=== PATIENT | female | born 1945 | race Caucasian/White ===

== ENCOUNTER 2016-10-25 23:53 | Emergency (ER) | payer MEDICARE, OTHER ==
[2016-10-25] MEDS ORDERED: Robitussin AC Syrup Unit Dose Cup PO PRN (23:54)
[2016-10-25] MEDS ORDERED: Xopenex 1.25 MG/0.5 ML UD NEBULE IH ONE (23:54)
[2016-10-25] MEDS ORDERED: Rocephin 1000 MG INJ IM ONE (23:54)
--- NOTE | 2016-10-26 | ERPHSYRPT ---
- History of Present Illness Time Seen by Provider: 10/25/16 23:53 Source: patient Exam Limitations: no limitations Physician History: FOR THE PAST 4 DAYS PT HAS HAD COUGH PRODUCTIVE OF YELLOW PHLEGM, CHILLS AND A SORE THROAT; FOR THE PAST 3 DAYS A SUBJECTIVE FEVER; FOR THE PAST 2 DAYS NASAL DRAINAGE, LEFT EARACHE AND WHEEZING. Allergies/Adverse Reactions: propoxyphene HCl [From Darvon] Allergy (Verified 07/28/16 11:10) nausea Home Medications: Certolizumab Pegol [Cimzia] 1 unit IJ UD 01/27/16 [History] Loratadine 10 mg [Claritin 10 mg] 10 mg PO DAILY 01/27/16 [History] Methotrexate Sodium [Methotrexate] 2.5 mg PO UD 01/27/16 [History] Apixaban [Eliquis] 5 mg PO BID 07/28/16 [History] Bacillus Coagulans [Probiotic] 1 each PO DAILY 07/28/16 [History] Gabapentin [Neurontin] 100 mg PO HS 07/28/16 [History] Levothyroxine Sodium 50 Mcg [Synthroid 50 Mcg] 50 mcg PO DAILY 07/28/16 [ History] Multivitamin [Multivitamins] 1 each PO DAILY 07/28/16 [History] Hx Tetanus, Diphtheria Vaccination/Date Given: Yes Hx Influenza Vaccination/Date Given: No Hx Pneumococcal Vaccination/Date Given: No - Review of Systems Constitutional: Fever, Chills Ears, Nose, & Throat: Ear Pain (LEFT), Nose Discharge, Throat Pain Respiratory: Cough, Wheezing Cardiac: No Chest Pain Abdominal/Gastrointestinal: No Abdominal Pain, No Vomiting Neurological: No Headache Endocrine: No Excessive Sweating All Other Systems: Reviewed and Negative - Past Medical History Pertinent Past Medical History: Yes Neurological History: No Pertinent History ENT History: No Pertinent History Cardiac History: Arrhythmia Respiratory History: No Pertinent History Endocrine Medical History: Hypothyroidism Musculoskeletal History: Fibromyalgia, Rheumatoid Arthritis GI Medical History: GERD History: No Pertinent History Psycho-Social History: No Pertinent History Female Reproductive Disorders: No Pertinent History - Past Surgical History Past Surgical History: Yes Neuro Surgical History: No Pertinent History Cardiac: No Pertinent History Respiratory: No Pertinent History Gastrointestinal: No Pertinent History Genitourinary: No Pertinent History Musculoskeletal: Orthopedic Surgery Female Surgical History: Tubal Ligation Other Surgical History: RIGHT ANKLE SURGERY,BILATERAL HAND SURGERY, lymph node biopsy - Social History Smoking Status: Never smoker Exposure to second hand smoke: No Drug Use: none Patient Lives Alone: No - Female History Hx Now: No - Physical Exam General Appearance: alert Eye Exam: PERRL/EOMI Ears, Nose, Throat Exam: TMs normal, moist mucous membranes, pharyngeal erythema Neck Exam: normal inspection Respiratory Exam: wheezing (MINIMAL EXPIRATORY MUSICAL WHEEZING OVER POSTERIOR BASES.) Cardiovascular Exam: normal peripheral pulses Gastrointestinal/Abdomen Exam: soft, normal bowel sounds Back Exam: normal range of motion Extremity Exam: normal inspection, No pedal edema Neurologic Exam: alert, cooperative Skin Exam: warm, dry - Course Nursing assessment & vital signs reviewed: Yes - Departure Time of Disposition: 00:03 Departure Disposition: Home Clinical Impression: BRONCHITIS, PHARYNGITIS Condition: Fair Critical Care Time: No Instructions: Bronchitis Additional Instructions: FOLLOW UP WITH PRIVATE DOCTOR TOMORROW. Prescriptions: Guaifenesin/Codeine Phosphate [Robitussin AC Syrup] 5 ml PO Q4H PRN PRN #120 ml PRN Reason: Cough Azithromycin 250 mg [Zithromax 250 MG TABLET] 250 mg PO ZPACK #6 tablet
[2016-10-26] MEDS ORDERED: Sodium Chloride 3 ML UD NEBULES IH ONE (00:02)
[2016-10-26] MEDS ORDERED: Rocephin 1000 MG INJ ONE (00:02)
[2016-10-26] MEDS ORDERED: Xopenex 1.25 MG/0.5 ML UD NEBULE IH ONE (00:02)
[2016-10-26] MEDS ORDERED: Robitussin AC Syrup Unit Dose Cup ONE (00:02)
[2016-10-26] MEDS ORDERED: XYLOCAINE 1% HCL 20 ML MDV ONE (00:03)
[2016-10-26] MEDS ORDERED: Zithromax 250 MG TABLET PO ONE (00:04)
[2016-10-26] MEDS ORDERED: Zithromax 250 MG TABLET ONE (00:13)
[2016-10-26 01:09] VITALS: BP 160/86; PULSE 84; O2SAT 98
== END 2016-10-26 01:11 | disposition home or self-care (01) ==
LOC: ED 23:53
DX: J40 Bronchitis, not specified as acute or chronic (principal); J02.9 Acute pharyngitis, unspecified; Z79.01 Long term (current) use of anticoagulants; Z79.899 Other long term (current) drug therapy; R06.2 Wheezing
CPT/HCPCS: 94640; 96372; 99283; 99284; J0696

== ENCOUNTER 2017-01-31 13:22 | Emergency (ER) | payer MEDICARE, OTHER ==
[2017-01-31] MEDS ORDERED: Sodium Chloride 0.9% 1000 ML 1,000 ML ONE (13:39)
[2017-01-31] MEDS ORDERED: Sodium Chloride 0.9% 1000 ML 1,000 ML IV SCH (13:45)
[2017-01-31 13:58] LABS: Mean Cell Volume 99.7 fl (78-100); Mean Corpuscular Hemoglobin 33.2 pg (26-32); Platelet Count 107 K/mm3 (150-450); Red Blood Count 3.76 M/mm3 (4.1-5.4); White Blood Count 12.5 K/mm3 (4.0-10.5)
[2017-01-31 14:22] LABS: ALBUMIN 3.4 g/dL (3.4-5.0); ANION GAP 15.9 MEQ/L (5-15); BILIRUBIN,TOTAL 0.7 mg/dL (0.2-1.0); Carbon Dioxide 22.7 mEq/L (21-32); Potassium 3.7 mEq/L (3.5-5.1); Total Protein 7.5 gm/dL (6.4-8.2)
[2017-01-31 14:24] LABS: PROTIME 21.9 SECONDS (9.95-12.35)
--- NOTE | 2017-01-31 14:32 | XRAY ---
Indication: Stroke symptoms. Multiple contiguous axial images obtained through the head without contrast. Comparison: July 28, 2016. Again age-appropriate global atrophy and minimal periventricular degenerative micro-ischemia. No acute intracranial hemorrhage, abnormal extra-axial fluid collection, or mass effect. Fourth ventricle is midline without hydrocephalus. Bony calvarium intact. Minimal left sphenoid sinus mucosal thickening. Remaining visualized paranasal sinuses and mastoid air cells are pneumatized and clear. Impression: Again nonacute senile brain. CTDI 69.66
--- NOTE | 2017-01-31 14:34 | XRAY ---
Indication: Cough. Comparison: July 28, 2016. Portable chest remains clear. Heart is not enlarged. Bony thorax intact again with mild osteopenia and degenerative changes. Impression: Stable nonacute chest.
[2017-01-31 14:41] VITALS: PULSE 75; O2SAT 99
--- NOTE | 2017-01-31 15:05 | ERPHSYRPT ---
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 PATIENT DENIES HEADACHE, FACIAL NUMBNESS, FOCAL EXTREMITY NUMBNESS, TINGLING OR WEAKNESS IN EXTREMITIES. STATES HER GAIT IS UNSTEADY DUE TO RHEUMATOID ARTHRITIS , AND HAS SLURRED SPEECH WHEN SHE IS EXTREMITY FATIQUED. Timing/Duration: today Severity: mild Character of Deficits: impaired speech Baseline/Normal Cognition: alert oriented x 3 Current Cognition: alert oriented x 3 Baseline Gait: walks w/o assistance Allergies/Adverse Reactions: propoxyphene HCl [From Darvon] Allergy (Verified 01/31/17 13:29) nausea Home Medications: Certolizumab Pegol [Cimzia] 1 unit IJ UD 01/27/16 [History] Loratadine 10 mg [Claritin 10 mg] 10 mg PO DAILY 01/27/16 [History] Methotrexate Sodium [Methotrexate] 2.5 mg PO UD 01/27/16 [History] Apixaban [Eliquis] 5 mg PO BID 07/28/16 [History] Bacillus Coagulans [Probiotic] 1 each PO DAILY 07/28/16 [History] Gabapentin [Neurontin] 100 mg PO HS 07/28/16 [History] Levothyroxine Sodium 50 Mcg [Synthroid 50 Mcg] 50 mcg PO DAILY 07/28/16 [ History] Multivitamin [Multivitamins] 1 each PO DAILY 07/28/16 [History] Hx Tetanus, Diphtheria Vaccination/Date Given: Yes Hx Influenza Vaccination/Date Given: No Hx Pneumococcal Vaccination/Date Given: No Immunizations Up to Date: Yes - Review of Systems Constitutional: No Fever, No Chills Eyes: No Symptoms Ears, Nose, & Throat: No Symptoms Respiratory: No Symptoms, No Cough, No Dyspnea Cardiac: No Symptoms, No Chest Pain, No Edema, No Syncope Abdominal/Gastrointestinal: No Symptoms, No Abdominal Pain, No Nausea, No Vomiting, No Diarrhea Genitourinary Symptoms: No Symptoms, No Dysuria Musculoskeletal: No Symptoms, No Back Pain, No Neck Pain Skin: No Symptoms, No Rash Neurological: Speech Changes, No Dizziness, No Focal Weakness, No Sensory Changes Psychological: No Symptoms Endocrine: No Symptoms Hematologic/Lymphatic: No Symptoms Immunological/Allergic: No Symptoms All Other Systems: Reviewed and Negative - Past Medical History Pertinent Past Medical History: Yes Neurological History: No Pertinent History ENT History: No Pertinent History Cardiac History: Arrhythmia Respiratory History: No Pertinent History Endocrine Medical History: Hypothyroidism Musculoskeletal History: Fibromyalgia, Rheumatoid Arthritis GI Medical History: GERD History: No Pertinent History Psycho-Social History: No Pertinent History Female Reproductive Disorders: No Pertinent History - Past Surgical History Past Surgical History: Yes Neuro Surgical History: No Pertinent History Cardiac: No Pertinent History Respiratory: No Pertinent History Gastrointestinal: No Pertinent History Genitourinary: No Pertinent History Musculoskeletal: Orthopedic Surgery Female Surgical History: Tubal Ligation Other Surgical History: RIGHT ANKLE SURGERY,BILATERAL HAND SURGERY, lymph node biopsy - Social History Smoking Status: Never smoker Exposure to second hand smoke: No Drug Use: none Patient Lives Alone: No - Female History Hx Now: No - Nursing Vital Signs Nursing Vital Signs: Initial Vital Signs Temperature 97.5 F Temperature Source Oral Pulse Rate 75 Respiratory Rate 20 Blood Pressure [] 139/75 Pain Intensity 0 - [place] Coma Scale Best Eye Response ([place]): (4) open spontaneously Best Verbal Response ([place]): (5) oriented Best Motor Response ([place]): (6) obeys commands Hao Total: 15 - Physical Exam General Appearance: no apparent distress, alert Eye Exam: bilateral eye: PERRL, EOMI Ears, Nose, Throat Exam: normal ENT inspection, moist mucous membranes Neck Exam: normal inspection, non-tender, supple Respiratory: normal breath sounds, lungs clear, airway intact, No respiratory distress Cardiovascular: regular rate/rhythm, No edema Gastrointestinal: soft, normal bowel sounds, No tenderness, No distention Back Exam: normal inspection Extremity Exam: normal inspection, No pedal edema Peripheral Pulses: carotid (R): 2+, carotid (L): 2+, femoral (R): 2+, femoral (L ): 2+, dorsalis-pedis (R): 2+, dorsalis-pedis (L): 2+ Mental Status: alert, 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 Exam: normal hearing (THERE IS NO FACIAL DROOP, HYPOESTHESIA, OR EXTEMITY WEAKNESS), normal speech, tongue midline Coordination/Gait: normal finger to nose, normal gait Motor/Sensory: no motor deficit, positive Babinski's sign DTR: bicep (R): 2+, bicep (L): 2+, tricep (R): 2+, tricep (L): 2+, knee (R): 2+ , knee (L): 2+, ankle (R): 2+, ankle (L): 2+ Skin Exam: normal color, warm, dry, No rash SpO2 Interpretation: normal SpO2: 99 Oxygen Delivery: Room Air - Course EKG Interpreted by Me: RATE, Sinus Rhythm, NORMAL AXIS - Radiology Exams Chest X-ray Interpretation: Negative - CT Exams Head CT Interpretation: Discussed w/radiologist, No/Intracranial Hemorrhag Ordered Tests: Active Orders 24 hr Category Date Time Status EKG-ER Only STAT Care 01/31/17 13:35 Active IV Insertion STAT Care 01/31/17 13:35 Active Oxygen-ED Only NASAL CANNULA 2 lpm Care 01/31/17 13:35 Active CHEST 1 VIEW (PORTABLE) Stat Exams 01/31/17 13:36 Completed HEAD WITHOUT CONTRAST [CT] Stat Exams 01/31/17 13:36 Completed CBC W DIFF Stat Lab 01/31/17 13:45 Completed CMP Stat Lab 01/31/17 13:45 Completed Manual Differential NC Stat Lab 01/31/17 13:45 Completed PROTIME WITH INR Stat Lab 01/31/17 13:45 Completed TROPONIN Q3H Lab 01/31/17 14:00 Completed TROPONIN Q3H Lab 01/31/17 16:45 Ordered TROPONIN Q3H Lab 01/31/17 19:45 Ordered TROPONIN Q3H Lab 01/31/17 22:45 Ordered TROPONIN Q3H Lab 02/01/17 01:45 Ordered UA W/ MICROSCOPIC Stat Lab 01/31/17 15:18 Completed Medication Summary Generic Name Dose Route Start Last Admin Trade Name Freq PRN Reason Stop Dose Admin Sodium Chloride 1,000 mls @ 50 mls/hr 01/31/17 13:45 01/31/17 13:41 Sodium Chloride 0.9% 1000 Ml IV 03/02/17 13:44 50 mls/hr .Q20H DARRELL Administration Lab/Rad Data: Laboratory Result Diagrams 01/31/17 13:45 01/31/17 13:45 Laboratory Results 01/31/17 01/31/17 01/31/17 Range/Units 15:18 14:00 13:45 WBC (4.0-10.5) K/mm3 RBC (4.1-5.4) M/mm3 Hgb (12.0-16.0) gm/dl Hct (35-47) % MCV (78-100) fl MCH (26-32) pg MCHC (32-36) g/dl RDW (11.5-14.0) % Plt Count (150-450) K/mm3 MPV (6-9.5) fl Segmented Neutrophils (36.0-66.0) % Band Neutrophils (0.0-2.0) % Lymphocytes (Manual) (24-44) % Monocytes (Manual) (0.0-12.0) % Differential Comment Atypical Lymphocytes % Toxic Granulation Platelet Estimate (NORMAL) Anisocytosis INR 2.00 (0.8-3.0) Sodium (136-145) mEq/L Potassium (3.5-5.1) mEq/L Chloride (98-107) mEq/L Carbon Dioxide (21-32) mEq/L Anion Gap (5-15) MEQ/L BUN (9-20) mg/dL Creatinine (0.55-1.30) mg/dl Estimated GFR ML/MIN Glucose (70-110) MG/DL Calcium (8.5-10.1) mg/dL Total Bilirubin (0.2-1.0) mg/dL AST (15-37) U/L ALT (12-78) U/L Alkaline Phosphatase (46-116) U/L Troponin I < 0.017 (0.000-0.056) ng/ml Serum Total Protein (6.4-8.2) gm/dL Albumin (3.4-5.0) g/dL Ur Collection Type VOID Urine Color YELLOW (YELLOW) Urine Appearance CLEAR (CLEAR) Urine pH 7.0 (5-6) Ur Specific [place] 1.015 (1.005-1.025) Urine Protein NEGATIVE (Negative) Urine Glucose (UA) NEGATIVE (NEGATIVE) mg/dL Urine Ketones NEGATIVE (NEGATIVE) Urine Nitrite NEGATIVE (NEGATIVE) Urine Bilirubin NEGATIVE (NEGATIVE) Urine Urobilinogen 1 (0-1) mg/dL Urine WBC (Auto) TRACE (NEGATIVE) Urine RBC (Auto) TRACE-INTACT (0-5) Thad/ul Specimen Received [id number] 01/31/17 01/31/17 Range/Units 13:45 13:45 WBC 12.5 H (4.0-10.5) K/mm3 RBC 3.76 L (4.1-5.4) M/mm3 Hgb 12.5 (12.0-16.0) gm/dl Hct 37.5 (35-47) % MCV 99.7 (78-100) fl MCH 33.2 H (26-32) pg MCHC 33.3 (32-36) g/dl RDW 14.0 (11.5-14.0) % Plt Count 107 L (150-450) K/mm3 MPV 11.0 H (6-9.5) fl Segmented Neutrophils 20 L (36.0-66.0) % Band Neutrophils 6 H (0.0-2.0) % Lymphocytes (Manual) 62 H (24-44) % Monocytes (Manual) 11 (0.0-12.0) % Differential Comment ABNORMAL Atypical Lymphocytes 1 % Toxic Granulation 2+ Platelet Estimate DECREASED (NORMAL) Anisocytosis 1+ INR (0.8-3.0) Sodium 132 L (136-145) mEq/L Potassium 3.7 (3.5-5.1) mEq/L Chloride 97 L (98-107) mEq/L Carbon Dioxide 22.7 (21-32) mEq/L Anion Gap 15.9 H (5-15) MEQ/L BUN 14 (9-20) mg/dL Creatinine 1.10 (0.55-1.30) mg/dl Estimated GFR 52 ML/MIN Glucose 100 (70-110) MG/DL Calcium 9.1 (8.5-10.1) mg/dL Total Bilirubin 0.7 (0.2-1.0) mg/dL AST 101 H (15-37) U/L ALT 104 H (12-78) U/L Alkaline Phosphatase 137 H (46-116) U/L Troponin I (0.000-0.056) ng/ml Serum Total Protein 7.5 (6.4-8.2) gm/dL Albumin 3.4 (3.4-5.0) g/dL Ur Collection Type Urine Color (YELLOW) Urine Appearance (CLEAR) Urine pH (5-6) Ur Specific [place] (1.005-1.025) Urine Protein (Negative) Urine Glucose (UA) (NEGATIVE) mg/dL Urine Ketones (NEGATIVE) Urine Nitrite (NEGATIVE) Urine Bilirubin (NEGATIVE) Urine Urobilinogen (0-1) mg/dL Urine WBC (Auto) (NEGATIVE) Urine RBC (Auto) (0-5) Thad/ul Specimen Received - Progress Counseled pt/family regarding: lab results, diagnosis, need for follow-up, rad results - Departure Time of Disposition: 15:35 Departure Disposition: Home Clinical Impression: WEAKNESS Condition: Stable Critical Care Time: No Referrals: GREGORIO CISNEROS MD [Primary Care Provider] - Additional Instructions: CONTINUE ALL CURRENT MEDICATIONS. FOLLOWUP WITH YOUR FAMILY PHYSICIAN IN 1 WEEK. RETURN TO EMERGENCY FOR ONSET OF SLURRED SPEECH, BLURRED VISION, FOCAL NUMBNESS, TINGLING OR WEAKNESS
[2017-01-31 15:19] LABS: Collection Type VOID
[2017-01-31 15:20] LABS: COMPLETE URINE MICROSCOPIC? YES
[2017-01-31 15:22] LABS: ANISOCYTOSIS 1+; ATYPICAL LYMPHS 1 %; BAND 6 % (0.0-2.0); Platelet Estimate DECREASED (NORMAL); Total Cells Counted 100; Toxic Granulation 2+
[2017-01-31 15:45] VITALS: BP 133/73
[2017-01-31 15:50] LABS: Epithelial Cells RARE /HPF (FEW)
== END 2017-01-31 15:43 | disposition home or self-care (01) ==
LOC: ED 13:22
DX: R53.1 Weakness (principal); R47.81 Slurred speech; Z79.899 Other long term (current) drug therapy; E03.9 Hypothyroidism, unspecified
CPT/HCPCS: 36000; 36415; 70450; 71010; 80053; 81000; 84484; 85025; 85610; 93005; 96360; 96361; 99285

== ENCOUNTER 2017-02-15 11:53 | Inpatient (IN) | payer MEDICARE, OTHER ==
[2017-02-15 12:34] LABS: Mean Cell Volume 98.3 fl (78-100); Mean Platelet Volume 10.4 fl (6-9.5); Platelet Count 172 K/mm3 (150-450); Red Blood Count 3.53 M/mm3 (4.1-5.4); Red Cell Distribution Width 14.9 % (11.5-14.0); White Blood Count 8.9 K/mm3 (4.0-10.5)
[2017-02-15 12:37] LABS: Mean Corpuscular Hemoglobin 32.8 pg (26-32)
[2017-02-15 13:00] LABS: ALBUMIN 2.5 g/dL (3.4-5.0); ALKALINE PHOSPHATASE 255 U/L (46-116); ANION GAP 10.9 MEQ/L (5-15); BLOOD UREA NITROGEN 18 mg/dL (9-20); CHLORIDE 100 mEq/L (98-107); Carbon Dioxide 24.6 mEq/L (21-32); Glucose 99 MG/DL (70-110); LIPASE 486 U/L (73-393); SGOT/AST 182 U/L (15-37); SGPT/ALT 202 U/L (12-78); SODIUM 132 mEq/L (136-145); Total Protein 7.4 gm/dL (6.4-8.2)
[2017-02-15 13:01] LABS: BAND 3 % (0.0-2.0); Eosinophil 2 % (0.00-3.0); Total Cells Counted 100
[2017-02-15 13:03] LABS: ANISOCYTOSIS 1+; Platelet Estimate NORMAL (NORMAL); Poikilocytosis 1+
[2017-02-15] MEDS ORDERED: Zofran 4 MG/2 ML VIAL IV PRN (13:46)
[2017-02-15] MEDS ORDERED: PROVENTIL 2.5 MG/3 ML NEB IH PRN (13:51)
[2017-02-15] MEDS ORDERED: SUBLIMAZE 100 MCG/2 ML IV PRN (13:53)
[2017-02-15] MEDS: Zosyn 3.375GM/100 Ml D5W 3.375 GM/100 ML IVPB IV SCH ×3 (14:34→23:51)
[2017-02-15] MEDS: Sodium Chloride 0.9% 1000 ML 1,000 ML IV SCH (14:34)
--- NOTE | 2017-02-15 14:55 | CONS ---
CONSULT DATE: 02/15/2017 This patient is seen for Dr. Yasemin Mcleod who is composition stone applicator for our group. She asked that I see the patient as I passed through doing procedures as Dr. Mcleod was tied up at [facility] at this time. HISTORY: The patient is a 71 year-old female who has had some weakness going on for three weeks, some mild abdominal discomfort, no severe pain. She did have some nausea at times and mainly complained of weakness. PAST MEDICAL HISTORY: Rheumatoid arthritis. History of atrial fibrillation, hypothyroidism. She had some nerve pain in her legs in the past, according to the patient. She has history of fever in the past apparently. She has rheumatoid arthritis and had been followed by Dr. Villalta in [place] regarding that. PAST SURGICAL HISTORY: She denied any abdominal surgery other than a tubal in the past. She did have some left foot and right ankle surgery in the past. MEDICATIONS: She has been on Claritin, Eliquis, gabapentin, levothyroxine, loratadine in the past that she has stopped at this time. She has also been on certolizumab pegol (Cimzia) for her arthritis. She has been on Eliquis for atrial fibrillation. Metoprolol she had been on to control her heart rate in the past. ALLERGIES: PROPOXYPHENE. REVIEW OF SYSTEMS: Twelve systems reviewed per admission assessment pertinent for as noted above. She had weakness. LAB DATA AND TESTS: She had CT of the head that showed age-related atrophy, chronic ischemic disease without any acute intracranial abnormality. She had ultrasound that showed hepatic steatosis. She had contracted gallbladder limited evaluation and question whether small polyp versus septation versus sludge at the time of the ultrasound. No obvious gross stones. She has had elevated liver function test. She did have a negative hepatitis panel. She had AST 118 and ALT 94, alkaline phosphatase 191 back on 02/06/2017. Today, her liver function tests are even higher 182 AST, ALT 202, alkaline phosphatase 255, lipase elevated at 46, amylase 101, bilirubin 0.8. White blood cell count 8.9, hemoglobin 11.6. She did have some elevated lymphocytes on differential. PLT count 172,000. PHYSICAL EXAMINATION: GENERAL: No acute distress. HEENT: Sclera nonicteric. She is wearing glasses. NECK: No JVD. CHEST: Equal excursion, nonlabored breathing. CVS: Irregular pulse. ABDOMEN: Soft, minimal abdominal tenderness. No rebound. No guarding. Minimal tenderness over gallbladder area currently on my exam. EXTREMITIES: No significant edema. NEURO: She seems to be moving extremities grossly symmetrically. IMPRESSION: Some vague weakness, vague abdominal complaints. Negative hepatitis panel but significantly elevated liver function tests unclear etiology. I feel she needs MRCP to rule out choledocholithiasis. If identified she definitely needs an ERCP evaluation. If negative then will repeat the liver function test tomorrow and let it to go on to normalize. Her HIDA scan shows cholecystitis. Will consider cholecystectomy at that time. Otherwise if MRCP reveals no obvious large stones, she has persistent elevated liver function tests might need consideration of ERCP prior to considering any gallbladder intervention if necessary. She and her daughter understand. Otherwise in the meantime need to hold the Eliquis as it is not safe to proceed on nonemergent surgical intervention at this moment given her blood thinner use. So will hold the Eliquis, check MRCP, order a HIDA scan at this time. Await MRCP and HIDA results. Hold the Eliquis in the meantime. Should eventually whether the HIDA is abnormal or liver function test remain abnormal and determine if she has sludge or small stone, need gallbladder intervention. Risks would include bleeding or infection, risk of trocar injury or hernia, small risk bowel, bladder or blood vessel injury, small risk of bile leak, bile duct injury, retained stone or sludge possibly requiring further procedure either open or ERCP, general risk of anesthesia, deep venous thrombosis, pulmonary embolism, pneumonia but not limited to, risk of no improvement of her symptoms or possible need for ERCP at a later date. At this time check MRCP, check HIDA scan. If MRCP and HIDA are normal then might need consideration of upper and lower endoscopy or even upper endoscopic ultrasound. I will await the study results of MRCP, HIDA scan, as well as repeat liver function test tomorrow while holding her Eliquis. The patient and daughter agree to the plan. The patient is seen for Dr. Yasemin Mcleod who is composition stone applicator for our group today. I will follow with you.
--- NOTE | 2017-02-15 18:13 | XRAY ---
MRI of the abdomen without IV contrast/MRCP from 02/15/2017. Comparison: Gallbladder ultrasound from 11/23/2014. Indication: Recent infection, postprandial bloating and "gassy", questionable cholecystitis or stones. Technique: Multiple axial and coronal imaging sequences were obtained, per MRCP protocol. Findings: The gallbladder is partially distended. No gallbladder wall thickening is seen. I see no foci of decreased signal within the bile filled gallbladder lumen to suggest stones. A linear septation is seen. The visualized intrahepatic bile ducts, common hepatic duct, and common bile duct appear of normal diameter and reveal no evidence of obstruction or decreased focal signal to suggest a retained bile duct stone. Images of the pancreatic duct appear unremarkable as well. Pancreas and adrenal glands appear unremarkable. I believe there is a small 1 cm in diameter cyst within the posterior aspect of the left lobe of the liver. No other significant abnormality of the visualized abdomen is seen. Impression: 1. The MRCP reveals a partially distended, bile filled gallbladder without evidence of stones within it or gallbladder wall thickening. 2. Both the visualized bile ducts and pancreatic duct appear unremarkable. No evidence of bile duct obstruction or choledocholithiasis is seen.
[2017-02-15] MEDS: Neurontin 100 MG PO SCH (21:26)
[2017-02-15] MEDS: Lopressor 25MG Tab PO SCH (21:26)
[2017-02-15] MEDS: TYLENOL 325 MG PO PRN (23:20)
[2017-02-16] MEDS: Sodium Chloride 0.9% 1000 ML 1,000 ML IV SCH ×2 (04:59→23:51)
[2017-02-16] MEDS: Zosyn 3.375GM/100 Ml D5W 3.375 GM/100 ML IVPB IV SCH ×4 (05:39→23:49)
[2017-02-16 06:08] LABS: ALBUMIN 2.3 g/dL (3.4-5.0); ALKALINE PHOSPHATASE 238 U/L (46-116); ANION GAP 12.3 MEQ/L (5-15); BLOOD UREA NITROGEN 16 mg/dL (9-20); CHLORIDE 103 mEq/L (98-107); Carbon Dioxide 26.1 mEq/L (21-32); Direct Bilirubin 0.46 MG/DL (0.0-0.2); Glucose 84 MG/DL (70-110); Potassium 4.3 mEq/L (3.5-5.1); SGOT/AST 141 U/L (15-37); SGPT/ALT 171 U/L (12-78); SODIUM 137 mEq/L (136-145); Total Protein 7.2 gm/dL (6.4-8.2)
[2017-02-16 06:46] LABS: Mean Cell Volume 99.4 fl (78-100); Mean Corpuscular Hemoglobin 32.3 pg (26-32); Mean Platelet Volume 11.1 fl (6-9.5); Platelet Count 172 K/mm3 (150-450); Red Blood Count 3.56 M/mm3 (4.1-5.4); Red Cell Distribution Width 14.9 % (11.5-14.0); White Blood Count 8.2 K/mm3 (4.0-10.5)
[2017-02-16] MEDS ORDERED: DIPRIVAN 200 MG/20 ML IV ONE (08:00)
[2017-02-16] MEDS ORDERED: ROBINUL IV ONE (08:00)
[2017-02-16] MEDS ORDERED: Zemuron 100 MG/10 ML IJ ONE (08:00)
--- NOTE | 2017-02-16 09:01 | PCM.NOTE ---
Date and Time: 02/16/17857 Subjective Assessment: doing about the same, has some vague discomfort in right upper abdomen and nausea, ran fever last night Objective Exam General Appearance: no apparent distress, alert, other (weak) Neurologic Exam: alert Skin Exam: normal color, warm, dry Respiratory Exam: normal breath sounds, lungs clear, No respiratory distress Cardiovascular Exam: regular rate/rhythm, normal heart sounds Gastrointestinal/Abdomen Exam: tenderness (RUQ), No guarding, No rebound Extremity Exam: normal inspection, normal range of motion OBJECTIVE DATA Vital Signs: Vital Signs - 24 hr Temp Pulse Resp BP Pulse Ox 02/16/17 08:00 98.3 F 97 H 19 107/57 100 02/16/17 05:00 97.8 F 99 H 20 102/59 97 02/16/17 01:54 98.4 F 02/15/17 23:58 101.2 F 107 H 26 H 117/58 93 L 02/15/17 23:10 102 H 24 98 02/15/17 20:05 97.6 F 107 H 24 126/58 93 L 02/15/17 19:46 97.6 F 107 H 24 126/58 93 L 02/15/17 15:23 98.3 F 93 H 22 99/55 93 L 02/15/17 14:20 88 18 93 L 02/15/17 12:51 97.6 F 99 H 20 116/59 92 L 02/15/17 12:35 97.6 F 99 H 20 116/59 92 L Oxygen-Last 24 hours O2 Percentage 3 Liters = 32% O2 Percentage 3 Liters = 32% O2 Percentage 3 Liters = 32% O2 Percentage 3 Liters = 32% Pain Assessment - Last Documented Pain Intensity 4 Pain Scale Used 0-10 Pain Scale Intake and Output: Intake & Output 02/13/17 02/14/17 02/15/17 02/16/17 11:59 11:59 11:59 11:59 Intake Total 1544 Output Total 550 Balance 994 Weight 64.467 kg Lab Results: Lab Results-Last 24 Hours 02/15/17 02/15/17 02/16/17 Range/Units 12:20 12:20 04:55 WBC 8.9 8.2 (4.0-10.5) K/mm3 RBC 3.53 L 3.56 L (4.1-5.4) M/mm3 Hgb 11.6 L 11.5 L (12.0-16.0) gm/dl Hct 34.7 L 35.4 (35-47) % MCV 98.3 99.4 (78-100) fl MCH 32.8 H 32.3 H (26-32) pg MCHC 33.4 32.5 (32-36) g/dl RDW 14.9 H 14.9 H (11.5-14.0) % Plt Count 172 172 (150-450) K/mm3 MPV 10.4 H 11.1 H (6-9.5) fl Segmented Neutrophils 34 L (36.0-66.0) % Band Neutrophils 3 H (0.0-2.0) % Lymphocytes (Manual) 53 H (24-44) % Monocytes (Manual) 8 (0.0-12.0) % Eosinophils (Manual) 2 (0.00-3.0) % Differential Comment ABNORMAL Platelet Estimate NORMAL (NORMAL) Poikilocytosis 1+ Anisocytosis 1+ Sodium 132 L (136-145) mEq/L Potassium 4.0 (3.5-5.1) mEq/L Chloride 100 (98-107) mEq/L Carbon Dioxide 24.6 (21-32) mEq/L Anion Gap 10.9 (5-15) MEQ/L BUN 18 (9-20) mg/dL Creatinine 0.93 (0.55-1.30) mg/dl Estimated GFR > 60 ML/MIN Glucose 99 (70-110) MG/DL Calcium 8.9 (8.5-10.1) mg/dL Total Bilirubin 0.80 (0.2-1.0) mg/dL Direct Bilirubin (0.0-0.2) MG/DL AST 182 H (15-37) U/L ALT 202 H (12-78) U/L Alkaline Phosphatase 255 H (46-116) U/L Serum Total Protein 7.4 (6.4-8.2) gm/dL Albumin 2.5 L (3.4-5.0) g/dL Amylase 101 (25-115) U/L Lipase 486 H (73-393) U/L 02/16/17 Range/Units 04:55 WBC (4.0-10.5) K/mm3 RBC (4.1-5.4) M/mm3 Hgb (12.0-16.0) gm/dl Hct (35-47) % MCV (78-100) fl MCH (26-32) pg MCHC (32-36) g/dl RDW (11.5-14.0) % Plt Count (150-450) K/mm3 MPV (6-9.5) fl Segmented Neutrophils (36.0-66.0) % Band Neutrophils (0.0-2.0) % Lymphocytes (Manual) (24-44) % Monocytes (Manual) (0.0-12.0) % Eosinophils (Manual) (0.00-3.0) % Differential Comment Platelet Estimate (NORMAL) Poikilocytosis Anisocytosis Sodium 137 (136-145) mEq/L Potassium 4.3 (3.5-5.1) mEq/L Chloride 103 (98-107) mEq/L Carbon Dioxide 26.1 (21-32) mEq/L Anion Gap 12.3 (5-15) MEQ/L BUN 16 (9-20) mg/dL Creatinine 0.94 (0.55-1.30) mg/dl Estimated GFR > 60 ML/MIN Glucose 84 (70-110) MG/DL Calcium 8.2 L (8.5-10.1) mg/dL Total Bilirubin 0.90 (0.2-1.0) mg/dL Direct Bilirubin 0.46 H (0.0-0.2) MG/DL AST 141 H (15-37) U/L ALT 171 H (12-78) U/L Alkaline Phosphatase 238 H (46-116) U/L Serum Total Protein 7.2 (6.4-8.2) gm/dL Albumin 2.3 L (3.4-5.0) g/dL Amylase (25-115) U/L Lipase (73-393) U/L Radiology Exams: Radiology Procedures Category Date Time Status CHEST 2 VIEWS (PA AND LAT) Routine Exams 02/16/17 08:32 Taken HEPATOBILIARY W/CCK & EF [NUCMED] Routine Exams 02/16/17 08:00 Taken MRI ABD W/O CONTRAST [MRI] Routine Exams 02/15/17 15:00 Completed Assessment/Plan (1) Abdominal pain Current Visit: Yes Status: Acute Assessment & Plan: awaiting HIDA results, MRCP shows no CBD stone etc Code(s): R10.9 - UNSPECIFIED ABDOMINAL PAIN (2) Elevated LFTs Current Visit: Yes Status: Acute Assessment & Plan: stable Code(s): R94.5 - ABNORMAL RESULTS OF LIVER FUNCTION STUDIES (3) Abnormal gallbladder ultrasound Current Visit: Yes Status: Acute Code(s): R93.2 - ABNORMAL FINDINGS ON DX IMAGING OF LIVER AND BILIARY TRACT (4) Fever Current Visit: Yes Status: Acute Assessment & Plan: check u/a, urine culture and chest xray since gallbladder is not clear cut etiology, still suspect cholecystitis with symptomatology and abnormal gb u/s with thick wall, MRCP conflicts with normal wall thickness. await hida scan result Code(s): R50.9 - FEVER, UNSPECIFIED
--- NOTE | 2017-02-16 09:10 | XRAY ---
Indication: Fever and nausea. Possible cholecystitis. Negative MRCP. Comparison: None Patient received 5.7 mCi of technetium 99 Choletec. Immediate anterior planar imaging was performed for 60 minutes. Normal hepatic activity on the first image. Normal biliary and biliary to bowel activity within 10 minutes. Normal gallbladder activity within 30 minutes. Patient then received 1.3 g of IV CCK slowly. Ejection fraction calculated 29%, low. Impression: HIDA scan portion of the exam is negative. Low ejection fraction of 29%. Rule out chronic cholecystitis.
--- NOTE | 2017-02-16 09:12 | XRAY ---
Indication: Fever. Recent infection. Comparison: January 31, 2017. PA/lateral chest hyperinflated today again without focal infiltrate, consolidation, or large effusion. Minimal fissure thickening. Heart is not enlarged. Vascularity normal. Bony thorax intact again with osteopenia and degenerative changes Impression: Nonacute hyperinflated chest with chronic features.
[2017-02-16] MEDS: Lopressor 25MG Tab PO SCH ×2 (10:34→20:47)
[2017-02-16] MEDS: SYNTHROID 50 MCG PO SCH (10:34)
[2017-02-16] MEDS ORDERED: MEFOXIN 2 GM PREMIX** 2 GM/50 ML ML IV SCH (16:00)
[2017-02-16 17:11] LABS: COMPLETE URINE MICROSCOPIC? NO; Collection Type VOID
[2017-02-16] MEDS: TYLENOL 325 MG PO PRN (20:40)
[2017-02-16] MEDS: Neurontin 100 MG PO SCH (20:47)
[2017-02-17] MEDS: Zosyn 3.375GM/100 Ml D5W 3.375 GM/100 ML IVPB IV SCH ×3 (05:32→17:13)
[2017-02-17 05:51] LABS: BASOPHIL % 1.7 % (0.0-0.4); Eosinophil % 1.2 % (0.00-5.0); Lymphocytes % 54.2 % (24.0-44.0); Mean Cell Volume 99.5 fl (78-100); Mean Corpuscular Hemoglobin 32.6 pg (26-32); Mean Platelet Volume 10.4 fl (6-9.5); Monocytes % 13.9 % (0.0-12.0); Platelet Count 163 K/mm3 (150-450); Red Blood Count 3.71 M/mm3 (4.1-5.4); Red Cell Distribution Width 14.9 % (11.5-14.0); White Blood Count 7.5 K/mm3 (4.0-10.5)
[2017-02-17] MEDS ORDERED: Pepcid 20 MG VIAL IV SCH (06:00)
[2017-02-17] MEDS ORDERED: Lactated Ringers 1,000 ML IV SCH (06:00)
[2017-02-17 06:14] LABS: ALBUMIN 2.1 g/dL (3.4-5.0); ALKALINE PHOSPHATASE 204 U/L (46-116); BLOOD UREA NITROGEN 11 mg/dL (9-20); CHLORIDE 105 mEq/L (98-107); Carbon Dioxide 24.2 mEq/L (21-32); Glucose 80 MG/DL (70-110); SGOT/AST 116 U/L (15-37); SGPT/ALT 143 U/L (12-78); SODIUM 137 mEq/L (136-145); Total Protein 6.9 gm/dL (6.4-8.2)
[2017-02-17 06:16] LABS: ALBUMIN 2.2 g/dL (3.4-5.0); BILIRUBIN,TOTAL 0.9 mg/dL (0.2-1.0); Direct Bilirubin 0.49 MG/DL (0.0-0.2); Total Protein 7.5 gm/dL (6.4-8.2)
[2017-02-17] MEDS: Lopressor 25MG Tab PO SCH ×2 (08:49→21:10)
[2017-02-17] MEDS: SYNTHROID 50 MCG PO SCH (08:49)
--- NOTE | 2017-02-17 11:38 | PCM.NOTE ---
Date and Time: 02/17/17 1132 Subjective Assessment: Patient reports that she is glad she will have surgery today as she has continued to have abdominal pain with eating but not as much when she does not eat. She reports her mouth feels dry. Her only questions is when the surgeons will be here. - Review of Systems Constitutional: No Symptoms Eyes: No Symptoms Ears, Nose, & Throat: No Symptoms Respiratory: No Symptoms Cardiac: No Symptoms Abdominal/Gastrointestinal: Abdominal Pain Genitourinary Symptoms: No Symptoms Musculoskeletal: No Symptoms Skin: No Symptoms Objective Exam General Appearance: no apparent distress, alert, other (family at bedside) Neurologic Exam: alert, cooperative, normal mood/affect Skin Exam: normal color, warm, dry, No rash Respiratory Exam: normal breath sounds, lungs clear, No crackles/rales, No rhonchi, No wheezing Cardiovascular Exam: regular rate/rhythm, normal heart sounds, No murmur, No friction rub, No gallop Gastrointestinal/Abdomen Exam: soft, normal bowel sounds, tenderness, No distention, No mass, No guarding Extremity Exam: other (no c/c/e) OBJECTIVE DATA Vital Signs: Vital Signs - 24 hr Temp Pulse Resp BP BP Pulse Ox 02/17/17 11:03 93 L 02/17/17 07:46 93 H 18 96 02/17/17 07:36 98.6 F 95 H 18 137/67 92 L 02/17/17 07:24 98.6 F 95 H 18 134/67 92 L 02/17/17 04:00 96.2 F 91 H 18 129/58 95 02/17/17 00:00 97.8 F 89 20 108/53 96 02/16/17 20:00 100.2 F 111 H 21 124/62 98 02/16/17 19:45 113 H 20 94 L 02/16/17 17:00 98.8 F 113 H 18 107/58 99 Oxygen-Last 24 hours O2 Percentage 3 Liters = 32% O2 Percentage 3 Liters = 32% O2 Percentage 3 Liters = 32% O2 Percentage 3 Liters = 32% Pain Assessment - Last Documented Pain Intensity 7 Pain Scale Used 0-10 Pain Scale Intake and Output: Intake & Output 02/15/17 02/16/17 02/17/17 02/18/17 06:59 06:59 06:59 06:59 Intake Total 1544 2407 0 Output Total 550 1355 600 Balance 994 1052 -600 Weight 64.467 kg 64.467 kg Lab Results: Lab Results-Last 24 Hours 02/16/17 02/17/17 02/17/17 Range/Units 16:57 05:41 05:41 WBC 7.5 (4.0-10.5) K/mm3 RBC 3.71 L (4.1-5.4) M/mm3 Hgb 12.1 (12.0-16.0) gm/dl Hct 36.9 (35-47) % MCV 99.5 (78-100) fl MCH 32.6 H (26-32) pg MCHC 32.8 (32-36) g/dl RDW 14.9 H (11.5-14.0) % Plt Count 163 (150-450) K/mm3 MPV 10.4 H (6-9.5) fl Gran % 29.0 L (36.0-66.0) % Lymphocytes % 54.2 H (24.0-44.0) % Monocytes % 13.9 H (0.0-12.0) % Eosinophils % 1.2 (0.00-5.0) % Basophils % 1.7 (0.0-0.4) % Basophils # 0.13 (0-0.4) Sodium 137 (136-145) mEq/L Potassium 5.0 (3.5-5.1) mEq/L Chloride 105 (98-107) mEq/L Carbon Dioxide 24.2 (21-32) mEq/L Anion Gap 13.0 (5-15) MEQ/L BUN 11 (9-20) mg/dL Creatinine 0.75 (0.55-1.30) mg/dl Estimated GFR > 60 ML/MIN Glucose 80 (70-110) MG/DL Calcium 8.3 L (8.5-10.1) mg/dL Total Bilirubin 0.80 (0.2-1.0) mg/dL Direct Bilirubin (0.0-0.2) MG/DL AST 116 H (15-37) U/L ALT 143 H (12-78) U/L Alkaline Phosphatase 204 H (46-116) U/L Serum Total Protein 6.9 (6.4-8.2) gm/dL Albumin 2.1 L (3.4-5.0) g/dL Lipase (73-393) U/L Ur Collection Type VOID Urine Color YELLOW (YELLOW) Urine Appearance CLEAR (CLEAR) Urine pH 7.0 (5-6) Ur Specific Jackson 1.020 (1.005-1.025) Urine Protein NEGATIVE (Negative) Urine Glucose (UA) NEGATIVE (NEGATIVE) mg/dL Urine Ketones NEGATIVE (NEGATIVE) Urine Nitrite NEGATIVE (NEGATIVE) Urine Bilirubin NEGATIVE (NEGATIVE) Urine Urobilinogen 2 (0-1) mg/dL Urine WBC (Auto) NEGATIVE (NEGATIVE) Urine RBC (Auto) NEGATIVE (0-5) Thad/ul Specimen Received 02/16/17 1715 02/17/17 Range/Units 05:41 WBC (4.0-10.5) K/mm3 RBC (4.1-5.4) M/mm3 Hgb (12.0-16.0) gm/dl Hct (35-47) % MCV (78-100) fl MCH (26-32) pg MCHC (32-36) g/dl RDW (11.5-14.0) % Plt Count (150-450) K/mm3 MPV (6-9.5) fl Gran % (36.0-66.0) % Lymphocytes % (24.0-44.0) % Monocytes % (0.0-12.0) % Eosinophils % (0.00-5.0) % Basophils % (0.0-0.4) % Basophils # (0-0.4) Sodium (136-145) mEq/L Potassium (3.5-5.1) mEq/L Chloride (98-107) mEq/L Carbon Dioxide (21-32) mEq/L Anion Gap (5-15) MEQ/L BUN (9-20) mg/dL Creatinine (0.55-1.30) mg/dl Estimated GFR ML/MIN Glucose (70-110) MG/DL Calcium (8.5-10.1) mg/dL Total Bilirubin 0.90 (0.2-1.0) mg/dL Direct Bilirubin 0.49 H (0.0-0.2) MG/DL AST 118 H (15-37) U/L ALT 149 H (12-78) U/L Alkaline Phosphatase 217 H (46-116) U/L Serum Total Protein 7.5 (6.4-8.2) gm/dL Albumin 2.2 L (3.4-5.0) g/dL Lipase 520 H (73-393) U/L Ur Collection Type Urine Color (YELLOW) Urine Appearance (CLEAR) Urine pH (5-6) Ur Specific Jackson (1.005-1.025) Urine Protein (Negative) Urine Glucose (UA) (NEGATIVE) mg/dL Urine Ketones (NEGATIVE) Urine Nitrite (NEGATIVE) Urine Bilirubin (NEGATIVE) Urine Urobilinogen (0-1) mg/dL Urine WBC (Auto) (NEGATIVE) Urine RBC (Auto) (0-5) Thad/ul Specimen Received Radiology Exams: Radiology Procedures Category Date Time Status CHEST 2 VIEWS (PA AND LAT) Routine Exams 02/16/17 08:32 Completed HEPATOBILIARY W/CCK & EF [NUCMED] Routine Exams 02/16/17 08:00 Completed MRI ABD W/O CONTRAST [MRI] Routine Exams 02/15/17 15:00 Completed Multi-Disciplinary Progress Notes: Multi-Disciplinary Progress Notes 02/16/17 13:16 Case Management Note by Stacey Baker CALL TO [facility] TO REPORT PT IS HERE. WILL CALL ON DISCHARGE. Initialized on 02/16/17 13:16 - END OF NOTE 02/16/17 12:00 (created 02/16/17 13:09) Case Management Note by Stacey Baker DISCHARGE PLAN REVIEWED, FAMILY AT BEDSIDE. PT REPORTS FEELING VERY POORLY X 2- 3 WEEKS. REPORTS THAT SHE HAS A HOME HEALTHCARE SERVICES AND THEY ARE AWARE OF ADMIT. USES A CANE AT HOME WHEN SHE IS UNSTEADY AND ALSO USES CHAIR IN SHOWER. DECLINED ADDNL NEEDS FOR DISCHARGE. REPORTS THAT FAMILY NEARBY AND CAN ASSIST WHEN NEEDED. WILL CONTINUE TO FOLLOW AND ASSESS FOR ALL DC NEEDS. Initialized on 02/16/17 13:09 - END OF NOTE Assessment/Plan (1) Acute cholecystitis Current Visit: Yes Status: Acute Assessment & Plan: Plan for surgery today with the surgeons. Continue IV antibiotics. Code(s): K81.0 - ACUTE CHOLECYSTITIS (2) History of atrial fibrillation Current Visit: Yes Status: Acute Assessment & Plan: Will check baseline EKG today before surgery. Code(s): Z86.79 - PERSONAL HISTORY OF OTHER DISEASES OF THE CIRCULATORY SYSTEM (3) Rheumatoid arthritis Current Visit: Yes Status: Acute Assessment & Plan: Stable at this time. Patient reports she is late for injections in her hips bilat. Code(s): M06.9 - RHEUMATOID ARTHRITIS, UNSPECIFIED
[2017-02-17] MEDS ORDERED: LOPRESSOR 5 MG/5 ML INJECTION IV ONE (12:05)
[2017-02-17] MEDS ORDERED: Sensorcaine 0.25% 10 ML ONE (12:54)
[2017-02-17] MEDS ORDERED: Lactated Ringers 1,000 ML IV ONE (12:54)
[2017-02-17] MEDS: TYLENOL 325 MG PO PRN (14:52)
[2017-02-17] MEDS: NORCO 5/325 MG PO PRN (15:03)
--- NOTE | 2017-02-17 16:38 | OP ---
THIS REPORT WAS AMENDED ON 02/19/17. SURGERY DATE: 02/17/17 SURGERY TIME: 1247 PREOPERATIVE DIAGNOSIS: 1. HISTORY OF SOME ELEVATED LIVER FUNCTION TESTS, WEIGHT LOSS, AND ENDOSCOPIC RETROGRADE CHOLANGIOPANCREATOGRAPHY. MRCP WAS NO GROSS LARGE CHOLEDOCHOLITHIASIS. 2. ABNORMAL HIDA SCAN WITH EJECTION FRACTION 29% CONSISTENT WITH DYSKINESIA, CHRONIC CHOLECYSTITIS. POSTOPERATIVE DIAGNOSIS: 1. HISTORY OF SOME ELEVATED LIVER FUNCTION TESTS, WEIGHT LOSS, AND ENDOSCOPIC RETROGRADE CHOLANGIOPANCREATOGRAPHY. MRCP WAS NO GROSS LARGE CHOLEDOCHOLITHIASIS. 2. ABNORMAL HIDA SCAN WITH EJECTION FRACTION 29% CONSISTENT WITH DYSKINESIA, CHRONIC CHOLECYSTITIS. PROCEDURE: 1. Laparoscopic cholecystectomy. SURGEON: Dr. Brandyn Blas. ANESTHESIA: General. ESTIMATED BLOOD LOSS: Minimal. INDICATIONS: As noted above. Risks and benefits explained in detail, but not limited to. Consent was obtained. DESCRIPTION OF PROCEDURE AND FINDINGS: The patient was taken to the OR. General anesthesia was induced. The abdomen was prepped and draped in the usual sterile fashion. After official time-out, no disagreement in planned procedure. Transverse incision made at the supraumbilical area. Fascia grasped and pulled up. Veress needle inserted. Tested with saline. Pneumoperitoneum accomplished insufflating from an opening pressure of 0-15. 11 mm bladeless port and camera inserted without difficulty followed by two 5 mm right upper quadrant ports and an initial 5 mm epigastric port, was later switched to 12 mm epigastric port. The gallbladder had some mild chronic inflammatory changes on its body and fundus, but more significant inflammatory changes around the cystic duct/infundibulum area junction with a clinically somewhat dilated common bile duct with a dilated short cystic duct stump. Slowly, carefully dissection from posterolateral to anterior fashion. The main cystic artery as well as the cystic duct/infundibular junction was slowly, carefully well skeletonized so the critical view was obtained both anteriorly and posteriorly. Once this was accomplished, the cystic artery was clipped X 3 and divided and this opened up the angle. Again, the critical view had been obtained anteriorly and posteriorly. At this point, it was felt given her elevated liver function tests, her AST and ALT had been in the 100s range and Alk. phos. had actually been 502, although the total bilirubin was in a normal range. Even though the MRCP did not show any large stones, there was a question of whether she had some sludge in her duct. Given this distended cystic duct, it was felt it would be a more secure closure with the endoscopic stapler rather than risk a clip popping off the cystic duct stump should any sludge become impacted. Again, the critical view had been obtained anteriorly and posteriorly. The endoscopic PAULIE stapler was then fired across the cystic duct stump away from the visible common duct next to the infundibulum. At this point, the gallbladder slowly, carefully dissected free from its dense, almost concrete attachments to the liver bed staying directly on the gallbladder wall. It was quite a vascular gallbladder requiring clipping individual oozing side branches off the cystic artery directly on the gallbladder wall. This took some time, but slowly, carefully accomplished. Again, dissecting directly on the gallbladder wall slowly, carefully freed with the aid of a hook cautery staying directly on the gallbladder wall elevating it well away from the gallbladder bed. Just prior to releasing the final attachments to the anterior edge of the liver, the liver bed reinspected. Clips noted to be in placed in the cystic duct/cystic artery stumps. There were no signs of any active bleeding or bile leakage. The clips noted to be in place on the cystic artery stumps and the staple line intact with no signs of any leakage on the cystic duct stump. At this point, the gallbladder was freed from its final attachments to the anterior edge of the liver. Again, to use the stapler, the 5 mm port had been switched to 12 mm port in the epigastrium. The gallbladder was easily pulled out this epigastric wound and passed off intact. Port was replaced. A copious amount of irrigation accomplished lateral to the liver and subhepatic space, irrigating until clear. Liver bed reinspected. Clips noted to be in place in the cystic artery stumps. The staple line was intact on the cystic duct stump. No signs of any active bleeding or bile leakage at this point, but given the inflammatory reaction and the somewhat dilated common bile duct and dilated cystic duct and question of elevated liver function tests and question of whether she had had any sludge floating around in there, because of the inflammation on the cystic duct, felt it was not safe to proceed with a cholangiogram at this setting, but it was felt that it was safer to go ahead and leave a LOGAN drain to reduce the risk of collection formation should the chance she develop any leaks in the stump given her elevated liver function tests and somewhat dilated common bile duct. Therefore, 7 flat LOGAN was placed in subhepatic space up through the lateral port incision. A copious amount of irrigation irrigating until clear. Fascial defects in epigastrium and umbilical area closed with puncture closure device and #1 Vicryl. Pneumoperitoneum decompressed. Wounds irrigated out. Skin incision closed with 4-0 Vicryl. Steri-strips and sterile dressing applied. 0.25% Marcaine local had been injected along each skin incision and fascial defect. The patient tolerated the procedure well. There were no immediate complications. Findings were discussed with the family out in the waiting area including the fact that still concerned the etiology of her elevated liver function tests or hepatitis panel had been normal, but there was a question that she could have any sludge or other issues or papillary stenosis or other bile duct issues. Therefore, a LOGAN drain had been left in place and feel the patient would benefit from arranging to be seen by Dr. Ware for endoscopic US and/or possible endoscopic retrograde cholangiopancreatography given the persistent elevated liver function tests. In the meantime, continue medical management. If she is tolerating PO and doing okay on oral pain medication, she can be released at that time, but again, needs follow-up with Dr. Ware for consideration of endoscopic US.
[2017-02-17] MEDS: MORPHINE SULFATE 4 MG INJ IV PRN (21:09)
[2017-02-17] MEDS: Neurontin 100 MG PO SCH (21:10)
[2017-02-18] MEDS: Zosyn 3.375GM/100 Ml D5W 3.375 GM/100 ML IVPB IV SCH ×2 (00:56→05:46)
[2017-02-18] MEDS: MORPHINE SULFATE 4 MG INJ IV PRN (01:36)
[2017-02-18 06:12] LABS: ALBUMIN 2.1 g/dL (3.4-5.0); BILIRUBIN,TOTAL 1.2 mg/dL (0.2-1.0); Direct Bilirubin 0.75 MG/DL (0.0-0.2); Total Protein 7.4 gm/dL (6.4-8.2)
[2017-02-18] MEDS: NORCO 5/325 MG PO PRN ×2 (07:39→12:08)
[2017-02-18] MEDS: SYNTHROID 50 MCG PO SCH (07:39)
[2017-02-18] MEDS: Lopressor 25MG Tab PO SCH (07:39)
--- NOTE | 2017-02-18 10:06 | PCM.NOTE ---
Date and Time: 02/18/17 1001 Subjective Assessment: She reports she is sleepy and her abdomen is tender to touch. She reports she is not on oxygen at home. Dr. Blas's operative note recommended that she see Dr. Ware. If she is not clinically improved tomorrow, she may need to transfer to [facility] if he is willing to see her or else be set up as an outpatient if she is doing better. She has been able to eat a little without vomiting. - Review of Systems Constitutional: Fatigue Eyes: No Symptoms Ears, Nose, & Throat: No Symptoms Respiratory: No Symptoms Cardiac: No Symptoms Abdominal/Gastrointestinal: Abdominal Pain, No Nausea, No Vomiting Genitourinary Symptoms: No Symptoms Musculoskeletal: No Symptoms Skin: No Symptoms Objective Exam General Appearance: no apparent distress, other (closes eyes during exam but answers questions appropriately.) Neurologic Exam: alert, cooperative, normal mood/affect Skin Exam: normal color, warm, dry, No rash Respiratory Exam: normal breath sounds, lungs clear, No crackles/rales, No rhonchi, No wheezing Cardiovascular Exam: regular rate/rhythm, normal heart sounds, No murmur, No friction rub Gastrointestinal/Abdomen Exam: soft, tenderness, other (drain in place, bandages in place), No distention Extremity Exam: normal inspection, other (no c/c/e) OBJECTIVE DATA Vital Signs: Vital Signs - 24 hr Temp Pulse Resp BP Pulse Ox 02/18/17 07:30 99 H 16 93 L 02/18/17 07:05 100.3 F 99 H 18 152/77 95 02/18/17 04:13 97.7 F 83 20 130/64 98 02/18/17 00:11 97.6 F 79 20 141/60 94 L 02/17/17 20:38 76 19 94 L 02/17/17 20:32 97.7 F 85 20 115/61 93 L 02/17/17 20:00 97.7 F 85 20 112/61 93 L 02/17/17 16:30 98.0 F 82 18 128/62 96 02/17/17 15:45 98.0 F 85 18 126/58 95 02/17/17 15:21 72 20 94 L 02/17/17 15:15 97.9 F 82 18 139/60 90 L 02/17/17 14:30 97.9 F 83 18 103/58 92 L 02/17/17 11:58 99.2 F 121 H 18 124/65 90 L 02/17/17 11:03 93 L Oxygen-Last 24 hours O2 Percentage 3 Liters = 32% O2 Percentage 4 Liters = 36% O2 Percentage 4 Liters = 36% O2 Percentage 3 Liters = 32% O2 Percentage 3 Liters = 32% O2 Percentage 3 Liters = 32% O2 Percentage 3 Liters = 32% O2 Percentage 3 Liters = 32% O2 Percentage 3 Liters = 32% Pain Assessment - Last Documented Pain Intensity 7 Pain Scale Used 0-10 Pain Scale Intake and Output: Intake & Output 02/16/17 02/17/17 02/18/17 02/19/17 06:59 06:59 06:59 06:59 Intake Total 1544 2407 1896 Output Total 550 1355 1815 340 Balance 994 1052 81 -340 Weight 64.467 kg 64.467 kg Lab Results: Lab Results-Last 24 Hours 02/18/17 Range/Units 05:15 Total Bilirubin 1.20 H (0.2-1.0) mg/dL Direct Bilirubin 0.75 H (0.0-0.2) MG/DL AST 112 H (15-37) U/L ALT 127 H (12-78) U/L Alkaline Phosphatase 208 H (46-116) U/L Serum Total Protein 7.4 (6.4-8.2) gm/dL Albumin 2.1 L (3.4-5.0) g/dL Assessment/Plan (1) Acute cholecystitis Current Visit: Yes Status: Acute Assessment & Plan: s/p gallbladder resection 02/17/17. Code(s): K81.0 - ACUTE CHOLECYSTITIS (2) History of atrial fibrillation Current Visit: Yes Status: Acute Assessment & Plan: EKG yesterday with sinus rhythm. Continue home medication. Surgeons will need to let us know when her anticoagulant can be restarted. Code(s): Z86.79 - PERSONAL HISTORY OF OTHER DISEASES OF THE CIRCULATORY SYSTEM (3) Rheumatoid arthritis Current Visit: Yes Status: Acute Assessment & Plan: Stable. She reports needing some IV pain medication because of her pain from RA. Code(s): M06.9 - RHEUMATOID ARTHRITIS, UNSPECIFIED (4) Elevated liver enzymes Current Visit: Yes Status: Acute Assessment & Plan: She will need further evaluation by a crowning inspector in the future. We do not have a crowning inspector who sees patients at this hospital. Code(s): R74.8 - ABNORMAL LEVELS OF OTHER SERUM ENZYMES
--- NOTE | 2017-02-18 11:00 | PCM.DCORD ---
- Discharge Discharge Date: 02/18/17 Disposition: Home, Self-Care Condition: Fair Prescriptions: Continue Certolizumab Pegol [Cimzia] 1 unit IJ UD Gabapentin [Neurontin] 200 mg PO HS Levothyroxine Sodium 50 Mcg [Synthroid 50 Mcg] 50 mcg PO DAILY Metoprolol Tartrate 25 mg [Lopressor 25MG Tab] 0.5 tab PO BID #30 tab P-Ephed Sul/Loratadine 24Hr [Claritin-D 24Hr Tablet] 1 tab PO Q24H PRN PRN Reason: Allergies Calcium Carbonate [Tums] 1 tab PO TIDWMEALS PRN PRN Reason: heartburn Discontinued Apixaban [Eliquis] 5 mg PO BID Instructions: Cholecystectomy, Laparoscopy Additional Instructions: Call Dr. Daniel on Sunday for directions on when to start back on your Eliquis and also to find out about referral to Dr. Ware. Return to ER if any fever or vomiting. [facility] WILL CALL YOU TO ARRANGE YOUR NEXT VISIT. YOU MAY REACH THEM AT FOR ANY NEEDS. Follow up with: GREGORIO DANIEL MD [Primary Care Provider] - 1 Week REBECCA DEE [COURTESY STAFF] - 1 Week OTILIO WARE MD [NON-STAFF PHY W/O PRIVILEGES] - 1 Week Forms: Discharge Instructions, Patient Portal Information
[2017-02-18 11:24] VITALS: BP 100/53; PULSE 96; O2SAT 91
[2017-02-18] MEDS ORDERED: PHENYLEPHRINE HCL IJ ONE (13:33)
[2017-02-18] MEDS ORDERED: BLOXIVERZ IV ONE (13:33)
--- NOTE | 2017-02-19 13:48 | DS ---
DISCHARGE DIAGNOSES: 1) ACUTE CHOLECYSTITIS STATUS POST CHOLECYSTECTOMY. 2) HISTORY OF ATRIAL FIBRILLATION. 3) RHEUMATOID ARTHRITIS. 4) ELEVATED LIVER FUNCTION TESTS. DISCHARGE PHYSICAL EXAMINATION: VITALS: Temperature current 98.5F, temperature max 100.3F, heart rate 79 to 99, respiratory rate 16 to 20, blood pressure 130 to 152 over 64 to 77. Oxygen saturation 91% on room air. GENERAL: The patient is a pleasant talkative lady sitting up in no acute distress. Her family is at the bedside. CVS: She has a regular rate and rhythm. No murmurs, gallops or rubs. CHEST: Clear to auscultation bilaterally. No crackles or wheezes. ABDOMEN: Soft with mild tenderness, normal bowel sounds. No guarding. No rigidity. Bandages are in place and drain is in place. EXTREMITIES: No clubbing, cyanosis or edema. SKIN: Warm, dry and intact. HOSPITAL COURSE: 1) ACUTE CHOLECYSTITIS: I took care of the patient over the weekend. She was seen Dr. Daniel before this. She had a HIDA scan that revealed a low ejection fraction of 29%, this was after having MRCP that revealed bile filled gallbladder without evidence of stones and no gallbladder wall thickening. They also did not see any bile duct or pancreatic duct problems. The patient was taken for cholecystectomy by the general surgeon, Dr. Blas, on 02/17/2017. The nursing staff reported that he said she could be discharged to home as soon as she was eating and she was able to eat breakfast without any problems. He has written a prescription for her for hydrocodone 5/325 mg 1 to 2 tablets every four hours as needed #30 with no refills. He wants her to see Dr. Ware. However he did not arrange this. He wants Dr. Daniel to arrange this. We tried to page Dr. Ware without a call back. Most likely this will need to be done as an outpatient for possible ERCP. The patient very much wants to go home today as she has been able to eat and has had her gallbladder taken out and is feeling better. Dr. Blas could not say when he would be okay with her starting her Eliquis back. He was concerned that Dr. Ware may want to do a procedure soon and she would not be able to be on [facility] for this. I explained this to the family in detail and sent a message to Dr. Daniel for him to follow up about her anticoagulation, when to restart this. The family states that someone will be with her all the time and they are also wanting to take her home today. 2) HISTORY OF ATRIAL FIBRILLATION: She had an EKG done right before surgery that revealed sinus rhythm. Her Eliquis was held for the surgery and has not been restarted yet. Her rate is controlled pretty well with her home medications that were a little bit high right before surgery because she vomited her beta richard and I gave her metoprolol 5 mg IV once. 3) RHEUMATOID ARTHRITIS: She needed some IV pain medicine. She reported some pain from her rheumatoid arthritis while she was here in the hospital. She can resume her home medications for this. 4) ELEVATED LIVER ENZYMES: Her liver enzymes continued to be elevated even after her gallbladder was taken out. Unfortunately, we do not have a electrochemist that comes to this hospital so she will need to follow up as an outpatient and her primary care physician, Dr. Daniel, will need to arrange this with Dr. Ware and this was explained in detail to the family. DISPOSITION: The patient was discharged to home in fair condition. DISCHARGE MEDICATIONS: Please see the discharge order. In addition, she had a script for hydrocodone from the surgeon. FOLLOW UP: She is to follow up with Dr. Blas her general surgeon. She still has a drain in place and so this will need removed at some point. She needs to follow up closely with Dr. Daniel and she will need appointment arranged with Dr. Ware as well. She will also need to follow up with Dr. Daniel about when to restart her Eliquis.
== END 2017-02-18 13:34 | disposition home health service (06) | DRG 419 ==
LOC: MED SURG 11:53 → OBSVTOIN 02-16 13:10
PROVIDERS: ADMIT Family Medicine; ATTEND Family Medicine
PROC: 0FT44ZZ Resection of Gallbladder, Percutaneous Endoscopic Approach (ICD-10-PCS; principal; 2017-02-16)
DX: K81.0 Acute cholecystitis (principal); R93.2 Abnormal findings on diagnostic imaging of liver and biliary tract; Z86.79 Personal history of other diseases of the circulatory system; M06.9 Rheumatoid arthritis, unspecified; R94.5 Abnormal results of liver function studies; Z79.01 Long term (current) use of anticoagulants; Z79.899 Other long term (current) drug therapy; E03.9 Hypothyroidism, unspecified
CPT/HCPCS: 00790; 36415; 71020; 74181; 78227; 80053; 80076; 81002; 82150; 82248; 83690; 85025; 85027; 87040; 87086; 93005; 94760; 99100; A9537; G0378; J0694; J2270; J2370; J2543; J2704; J2710; J2805; J3010; A9270-GY

== ENCOUNTER 2017-03-22 16:02 | Inpatient (IN) | payer MEDICARE, OTHER ==
[2017-03-22 16:21] LABS: A-aADO2 100; ALLEN TEST OK? YES; ARTERIAL BLD GAS O2 SATURATION 93.6 % (95-100); ARTERIAL BLOOD GAS BASE EXCESS 2.1 (-2.0-2.0); ARTERIAL BLOOD GAS FIO2 28 %; ARTERIAL BLOOD GAS PO2 58 mmHg (75-100); ARTERIAL BLOOD GAS pH 7.49 (7.35-7.45); Lactic Acid 1.6 (0.4-2.0)
[2017-03-22] MEDS ORDERED: DUONEB 0.5-3 MG/3 ml Neb IH ONE ×2 (16:24→16:36)
--- NOTE | 2017-03-22 16:24 | ERPHSYRPT ---
- History of Present Illness Time Seen by Provider: 03/22/17 16:05 Source: patient, family Exam Limitations: clinical condition (dyspnea) Patient Subjective Stated Complaint: pt here for sob for over 6 weeks getting worse, was dx with pneumonia on sunday and is on antibotics,pt has chronic fever for last 6 weeks, weakness, cough nonproductive Triage Nursing Assessment: pt arrived per wc, weak, sob with excertion, skin w/d , no edema, moves all ext wel, abd soft with bs x4 Physician History: dyspnea at rest and with exertion for several weeks ; getting worse; diagnosed with pnuemonia on Sunday; hx of fever and chills; general weakness; non- productive co9ugh; no travel; no exposure; no hx of lung disease; no CP; no leg pain or trauma; no hx DVT or PE Timing/Duration: today (worse), week(s) (6 onset), gradual onset, worse Activities at Onset: rest Severity of Dyspnea-Max: severe Severity of Dyspnea-Current: severe Possible Cause: occasional episodes Modifying Factors: Improves With: rest Associated Symptoms: cough, fever, loss of appetite, chills International travel in last 2 weeks: No Allergies/Adverse Reactions: propoxyphene HCl [From [employer]] Allergy (Verified 01/31/17 13:29) nausea Home Medications: Certolizumab Pegol [Cimzia] 1 unit IJ UD 01/27/16 [History] Gabapentin [Neurontin] 200 mg PO HS 07/28/16 [History] Levothyroxine Sodium 50 Mcg [Synthroid 50 Mcg] 50 mcg PO DAILY 07/28/16 [ History] Calcium Carbonate [Tums] 1 tab PO TIDWMEALS PRN 02/15/17 [History] P-Ephed Sul/Loratadine 24Hr [Claritin-D 24Hr Tablet] 1 tab PO Q24H PRN 10/03 [History] Hx Tetanus, Diphtheria Vaccination/Date Given: Yes Hx Influenza Vaccination/Date Given: Yes Hx Pneumococcal Vaccination/Date Given: Yes Immunizations Up to Date: Yes - Review of Systems Constitutional: Fever, Chills, Fatigue Eyes: No Symptoms Ears, Nose, & Throat: No Symptoms Respiratory: Cough, Cyanosis, Dyspnea, Dyspnea on Exertion (GONZALEZ), No Wheezing Cardiac: No Chest Pain, No Edema, No Palpitations, No Syncope Abdominal/Gastrointestinal: No Abdominal Pain, No Nausea, No Vomiting, No Diarrhea, No Constipation Genitourinary Symptoms: No Dysuria, No Frequency, No Hematuria, No Hesitancy, No Flank Pain Musculoskeletal: No Symptoms Skin: No Symptoms Neurological: No Symptoms Psychological: No Symptoms Endocrine: No Symptoms Hematologic/Lymphatic: No Symptoms Immunological/Allergic: No Symptoms - Past Medical History Pertinent Past Medical History: Yes Neurological History: No Pertinent History ENT History: No Pertinent History Cardiac History: Arrhythmia Respiratory History: No Pertinent History Endocrine Medical History: Hypothyroidism Musculoskeletal History: Fibromyalgia, Rheumatoid Arthritis GI Medical History: GERD History: No Pertinent History Psycho-Social History: No Pertinent History Female Reproductive Disorders: No Pertinent History - Past Surgical History Past Surgical History: Yes Neuro Surgical History: No Pertinent History Cardiac: No Pertinent History Respiratory: No Pertinent History Gastrointestinal: No Pertinent History Genitourinary: No Pertinent History Musculoskeletal: Orthopedic Surgery Female Surgical History: Tubal Ligation Other Surgical History: RIGHT ANKLE SURGERY,BILATERAL HAND SURGERY, lymph node biopsy - Social History Smoking Status: Never smoker Exposure to second hand smoke: No Alcohol Use: None Drug Use: none Patient Lives Alone: No Significant Family History: no pertinent family hx - Female History Hx Last Menstrual Period: post Hx Now: No - Nursing Vital Signs Nursing Vital Signs: Initial Vital Signs Temperature 100.1 F Temperature Source Rectal Pulse Rate 103 Respiratory Rate 22 Blood Pressure [] 118/64 Pain Intensity 0 - Physical Exam General Appearance: severe distress, alert, thin Eye Exam: PERRL/EOMI, eyes nml inspection, No photophobia Ears, Nose, Throat Exam: hearing grossly normal, normal ENT inspection, normal pharynx Neck Exam: normal inspection, non-tender, supple, full range of motion, No meningismus, No carotid bruit, No JVD Respiratory Exam: respiratory distress (tachypnea), diminished breath sounds, wheezing (minimal), No chest tenderness, No prolonged expirations, No crackles/ rales, No rhonchi, No stridor, No pleural rub Cardiovascular/Chest Exam: normal heart sounds, regular rate/rhythm, normal peripheral pulses, tachycardia (111), No murmur, No edema, No JVD Abdominal/Gastrointestinal Exam: soft, normal bowel sounds, No tenderness, No mass, No guarding, No rebound, No organomegaly Rectal Exam: deferred Extremity Exam: non-tender, normal range of motion, normal inspection, normal capillary refill, No pedal edema, No dariel's sign Peripheral Pulses Exam: carotid (R): 4+, carotid (L): 4+, femoral (R): 4+, femoral (L): 4+, dorsalis-pedis (R): 3+, dorsalis-pedis (L): 3+ Neurologic Exam: alert, oriented x 3, cooperative, transportation manager II-XII nml as tested, normal mood/affect Skin Exam: warm, dry, cyanosis, No rash, No petechiae Lymphatic Exam: No adenopathy SpO2 Interpretation: hypoxic, ABG ordered, O2 applied SpO2: 81 (will place on O2 and give Duoneb , monitor and recheck) Oxygen Delivery: Room Air - Course Nursing assessment & vital signs reviewed: Yes EKG Interpreted by Me: RATE (98), Sinus Rhythm, Left Sayner Deviation, NORMAL INTERVALS, NORMAL QRS, Non-specific ST Changes (poor R wave progression V1- V3) , Other (compared to02-17-17 shows an occassional PVC, and poor R wave progression V1-V3 unchanged) Rhythm Strip: Rate (98), Normal Sinus Rhythm - Radiology Exams Chest X-ray Interpretation: Interpreted by me, Nml Heart Size, Infiltrates (diffuse interstitial infiltrates ? etiology), Pneumonia (diffuse) Ordered Tests: Active Orders 24 hr Category Date Time Status Up With Assistance ROUTINE Activity 03/22/17 18:00 Ordered Admission/Status Order ROUTINE Care 03/22/17 18:00 Ordered Waterproof Bag Sewer STAT Care 03/22/17 16:13 Active Code Status Order ROUTINE Care 03/22/17 18:00 Ordered EKG-ER Only STAT Care 03/22/17 16:13 Active Fall Protocol ROUTINE Care 03/22/17 18:02 Ordered IV Care Q6H Care 03/22/17 18:00 Ordered IV Insertion STAT Care 03/22/17 16:13 Active Pulse Oximetry (ED) STAT Care 03/22/17 16:13 Active Rectal Temperature STAT Care 03/22/17 16:13 Active Ruben Hose, Apply ROUTINE Care 03/22/17 18:00 Ordered Weight,Daily 0600 Care 03/22/17 18:00 Ordered CHEST 1 VIEW (PORTABLE) Stat Exams 03/22/17 16:14 Completed ARTERIAL BLOOD GASES Stat Lab 03/22/17 16:15 Completed ARTERIAL BLOOD GASES Stat Lab 03/22/17 16:31 Ordered BLOOD CULTURE Stat Lab 03/22/17 16:50 Received CBC W DIFF Stat Lab 03/22/17 16:40 Completed CMP Stat Lab 03/22/17 16:50 Completed D-DIMER QUANTITATION Stat Lab 03/22/17 16:50 Completed Lactic Acid Stat Lab 03/22/17 16:15 Completed NT PRO BNP Stat Lab 03/22/17 16:50 Completed PROTIME WITH INR Stat Lab 03/22/17 16:50 Completed TROPONIN Stat Lab 03/22/17 16:50 Completed BiPap/CPAP Assessment STAT RT 03/22/17 17:34 Active Pulse Oximetry CONTINUOUS RT 03/22/17 18:02 Ordered Respiratory Nebulizer STAT RT 03/22/17 16:36 Completed Respiratory Therapy Consult ROUTINE RT 03/22/17 18:00 Ordered Transfer Order Routine Transfer 03/22/17 18:00 Ordered Medication Summary Generic Name Dose Route Start Last Admin Trade Name Freq PRN Reason Stop Dose Admin Sodium Chloride 1,000 mls @ 100 mls/hr 03/22/17 16:15 03/22/17 17:08 Sodium Chloride 0.9% 1000 Ml IV 04/21/17 16:14 100 mls/hr .Q10H DARRELL Administration Levofloxacin/Dextrose 750 mg in 150 mls @ 100 mls/hr 03/22/17 17:03 Levofloxacin 750mg/150ml D5w IV 03/22/17 18:32 STAT STA Discontinued Medications Generic Name Dose Route Start Last Admin Trade Name Freq PRN Reason Stop Dose Admin Albuterol/Ipratropium Confirm 03/22/17 16:24 Duoneb 0.5-3 Mg/3 Ml Neb Administered 03/22/17 16:25 Dose 3 ml IH .STK-MED ONE Albuterol/Ipratropium 3 ml 03/22/17 16:36 03/22/17 16:41 Duoneb 0.5-3 Mg/3 Ml Neb IH 03/22/17 16:37 3 ml STAT ONE Administration Ceftriaxone Sodium/Dextrose 1 g in 50 mls @ 100 mls/hr 03/22/17 17:03 17:08 Rocephin 1 Gm-D5w 50 Ml Bag IV 03/22/17 17:32 100 mls/hr STAT ONE Administration Ceftriaxone Sodium/Dextrose Confirm 03/22/17 17:06 Rocephin 1 Gm-D5w 50 Ml Bag Administered 03/22/17 17:07 Dose 1 g in 50 mls @ ud IV .STK-MED ONE Levofloxacin/Dextrose Confirm 03/22/17 18:00 Levofloxacin 750mg/150ml D5w Administered 03/22/17 18:01 Dose 750 mg in 150 mls @ ud IV .STK-MED ONE Lab/Rad Data: Laboratory Result Diagrams 03/22/17 16:40 03/22/17 16:50 Laboratory Results 03/22/17 03/22/17 03/22/17 Range/Units 16:50 16:50 16:40 WBC 5.5 (4.0-10.5) K/mm3 RBC 3.42 L (4.1-5.4) M/mm3 Hgb 11.0 L (12.0-16.0) gm/dl Hct 33.1 L (35-47) % MCV 96.8 (78-100) fl MCH 32.1 H (26-32) pg MCHC 33.2 (32-36) g/dl RDW 16.1 H (11.5-14.0) % Plt Count 102 L (150-450) K/mm3 MPV 11.2 H (6-9.5) fl Gran % 58.4 (36.0-66.0) % Lymphocytes % 37.6 (24.0-44.0) % Monocytes % 3.3 (0.0-12.0) % Eosinophils % 0.2 (0.00-5.0) % Basophils % 0.5 (0.0-0.4) % Basophils # 0.03 (0-0.4) INR 1.78 (0.8-3.0) D-Dimer 812 H* (0-500) ng/mL Puncture Site pCO2 (35-45) mmHg pO2 (75-100) mmHg Base Excess (-2.0-2.0) O2 Saturation (94-100) g/dF ABG pH (7.35-7.45) ABG HCO3 (22-28) ABG O2 Sat (Measured) (95-100) % Esa Test A-a Gradient a/A Ratio Hemoglobin Carboxyhemoglobin (0.0-6.9) % THgb Methemoglobin (1.4-1.5) % Potassium 3.8 (3.5-5.1) Temperature C POC O2 Flow Rate % Sodium 137 (136-145) mEq/L Chloride 103 (98-107) mEq/L Carbon Dioxide 24.8 (21-32) mEq/L Anion Gap 13.2 (5-15) MEQ/L BUN 28 H (9-20) mg/dL Creatinine 1.49 H (0.55-1.30) mg/dl Estimated GFR 36 ML/MIN Glucose 115 H (70-110) MG/DL Lactic Acid (0.4-2.0) Calcium 10.7 H (8.5-10.1) mg/dL Total Bilirubin 0.40 (0.2-1.0) mg/dL AST 96 H (15-37) U/L ALT 37 (12-78) U/L Alkaline Phosphatase 114 (46-116) U/L Troponin I < 0.017 (0.000-0.056) ng/ml NT-Pro-B Natriuret Pep 3000 H (0-125) pg/ml Serum Total Protein 6.0 L (6.4-8.2) gm/dL Albumin 1.9 L (3.4-5.0) g/dL Influenza Type A Ag (NEGATIVE) Influenza Type B Ag (NEGATIVE) RSV (PCR) (Negative) 03/22/17 03/22/17 Range/Units 16:30 16:15 WBC (4.0-10.5) K/mm3 RBC (4.1-5.4) M/mm3 Hgb (12.0-16.0) gm/dl Hct (35-47) % MCV (78-100) fl MCH (26-32) pg MCHC (32-36) g/dl RDW (11.5-14.0) % Plt Count (150-450) K/mm3 MPV (6-9.5) fl Gran % (36.0-66.0) % Lymphocytes % (24.0-44.0) % Monocytes % (0.0-12.0) % Eosinophils % (0.00-5.0) % Basophils % (0.0-0.4) % Basophils # (0-0.4) INR (0.8-3.0) D-Dimer (0-500) ng/mL Puncture Site RIGHT RADIAL pCO2 33 L (35-45) mmHg pO2 58 L (75-100) mmHg Base Excess 2.1 H (-2.0-2.0) O2 Saturation 90.6 L (94-100) g/dF ABG pH 7.49 H (7.35-7.45) ABG HCO3 25.1 (22-28) ABG O2 Sat (Measured) 93.6 L (95-100) % Esa Test YES A-a Gradient 100 a/A Ratio 0.37 Hemoglobin 11.2 Carboxyhemoglobin 2.1 (0.0-6.9) % THgb Methemoglobin 1.1 L (1.4-1.5) % Potassium 3.7 (3.5-5.1) Temperature 37.0 C POC O2 Flow Rate 28 % Sodium (136-145) mEq/L Chloride (98-107) mEq/L Carbon Dioxide (21-32) mEq/L Anion Gap (5-15) MEQ/L BUN (9-20) mg/dL Creatinine (0.55-1.30) mg/dl Estimated GFR ML/MIN Glucose (70-110) MG/DL Lactic Acid 1.6 (0.4-2.0) Calcium (8.5-10.1) mg/dL Total Bilirubin (0.2-1.0) mg/dL AST (15-37) U/L ALT (12-78) U/L Alkaline Phosphatase (46-116) U/L Troponin I (0.000-0.056) ng/ml NT-Pro-B Natriuret Pep (0-125) pg/ml Serum Total Protein (6.4-8.2) gm/dL Albumin (3.4-5.0) g/dL Influenza Type A Ag NEGATIVE (NEGATIVE) Influenza Type B Ag NEGATIVE (NEGATIVE) RSV (PCR) NEGATIVE (Negative) reviewed - Progress Progress: improved (after bipap), re-examined (after meds and treatment) Air Movement: poor Progress Note: 03/22/17 16:29 patient in respiratory distress; ABG show ph 7.49; pCO2 33 and pO2 of 58 on 2 l nc; sats 90 on the 2/; will give a duoneb and recheck; CXR and lab pending 03/22/17 16:59 recheck following duo neb and sats improved to 98% on 2 lnc; within 5 minutes sats were falling to 90-92% on 2 ln/c; will place on C pap and monitor and recheck; CXR shows diffuse interstitial infiltrate ? etiology 03/22/17 17:56 patietn improved on bipap; ATBs started; Dr Cisneros consulted and will admit to ICU; noted elevated D Dimer but renal function elevated and will need to consider VQ scan; patient on Eloquist and should be protected form PE.patient and family notified Blood Culture(s) Obtained: Yes Antibiotics given: Yes Discussed with .: Fredy (consulted and will admit to ICU) Will see patient in: hospital (full admit) Counseled pt/family regarding: lab results, diagnosis, need for follow-up, rad results - Departure Time of Disposition: 17:57 Departure Disposition: In-patient Admission Clinical Impression: Respiratory failure, Pneumonia, Elevated d-dimer, Fever Condition: Critical Critical Care Time: Yes Critical Care Time(excluding separately billable procedures): 30-74 minutes Referrals: QUYNH GONZALES MD [Primary Care Provider] - GREGORIO CISNEROS MD [ACTIVE STAFF] -
[2017-03-22] MEDS ORDERED: ROCEPHIN 1 Gm-D5w 50 ml Bag** 1 G/50 ML IVPB IV ONE ×2 (17:03→17:06)
[2017-03-22] MEDS ORDERED: LEVOFLOXACIN 750MG/150ML D5W 750 MG/150 ML BAG IV STA (17:03)
[2017-03-22 17:04] LABS: BASOPHIL % 0.5 % (0.0-0.4); Eosinophil % 0.2 % (0.00-5.0); Granulocytes % 58.4 % (36.0-66.0); Lymphocytes % 37.6 % (24.0-44.0); Mean Cell Volume 96.8 fl (78-100); Mean Platelet Volume 11.2 fl (6-9.5); Monocytes % 3.3 % (0.0-12.0); Platelet Count 102 K/mm3 (150-450); Red Blood Count 3.42 M/mm3 (4.1-5.4); Red Cell Distribution Width 16.1 % (11.5-14.0); White Blood Count 5.5 K/mm3 (4.0-10.5)
[2017-03-22 17:05] LABS: Mean Corpuscular Hemoglobin 32.1 pg (26-32)
[2017-03-22] MEDS ORDERED: Sodium Chloride 0.9% 1000 ML 1,000 ML ONE (17:06)
[2017-03-22] MEDS: Sodium Chloride 0.9% 1000 ML 1,000 ML IV SCH (17:08)
--- NOTE | 2017-03-22 17:09 | XRAY ---
Indication: Short of breath. Comparison: March 19, 2017. Portable chest again demonstrates diffuse bilateral patchy airspace disease minimally worsened in the left upper lobe and new tiny bibasilar effusions. Remaining heart and lungs unremarkable.
[2017-03-22 17:15] LABS: INR 1.78 (0.8-3.0); PROTIME 20.2 SECONDS (9.95-12.35)
[2017-03-22 17:29] LABS: ALBUMIN 1.9 g/dL (3.4-5.0); ALKALINE PHOSPHATASE 114 U/L (46-116); ANION GAP 13.2 MEQ/L (5-15); BLOOD UREA NITROGEN 28 mg/dL (9-20); CHLORIDE 103 mEq/L (98-107); Carbon Dioxide 24.8 mEq/L (21-32); Glucose 115 MG/DL (70-110); Potassium 3.8 mEq/L (3.5-5.1); SGOT/AST 96 U/L (15-37); SGPT/ALT 37 U/L (12-78); SODIUM 137 mEq/L (136-145)
[2017-03-22 17:30] LABS: TROPONIN < 0.017 ng/ml (0.000-0.056)
[2017-03-22] MEDS ORDERED: LEVOFLOXACIN 750MG/150ML D5W 750 MG/150 ML BAG IV ONE (18:00)
[2017-03-22] MEDS: TYLENOL 325 MG PO PRN (21:19)
[2017-03-22] MEDS: ELIQUIS PO SCH (22:35)
[2017-03-22] MEDS: Lopressor 25MG Tab PO SCH (22:35)
[2017-03-22] MEDS: Neurontin 100 MG PO SCH (22:35)
[2017-03-23] MEDS: TYLENOL 325 MG PO PRN ×5 (02:48→21:13)
[2017-03-23 04:03] LABS: Bacteria MODERATE /HPF (NEGATIVE); Bilirubin NEGATIVE (NEGATIVE); COMPLETE URINE MICROSCOPIC? YES; Collection Type CLEAN CATCH; Epithelial Cells MANY /HPF (FEW); Glucose NEGATIVE (NEGATIVE); Leukocyte Esterase NEGATIVE (NEGATIVE); Mucus SLIGHT /HPF (NEGATIVE)
[2017-03-23 05:51] LABS: Mean Cell Volume 96.6 fl (78-100); Mean Platelet Volume 11.2 fl (6-9.5); Platelet Count 97 K/mm3 (150-450); Red Blood Count 3.19 M/mm3 (4.1-5.4); White Blood Count 5.7 K/mm3 (4.0-10.5)
[2017-03-23 05:57] LABS: Mean Corpuscular Hemoglobin 31.9 pg (26-32)
[2017-03-23 06:01] LABS: Collection Type CATH
[2017-03-23 06:02] LABS: Bilirubin NEGATIVE (NEGATIVE); Blood NEGATIVE Ery/ul (0-5); Glucose NEGATIVE (NEGATIVE); Leukocyte Esterase NEGATIVE (NEGATIVE)
[2017-03-23 06:03] LABS: COMPLETE URINE MICROSCOPIC? YES
[2017-03-23 06:07] LABS: ANION GAP 14.8 MEQ/L (5-15); Carbon Dioxide 22.9 mEq/L (21-32); Potassium 3.5 mEq/L (3.5-5.1)
[2017-03-23] MEDS: Sodium Chloride 0.9% 1000 ML 1,000 ML IV SCH ×2 (06:34→18:20)
--- NOTE | 2017-03-23 08:35 | PCM.HP ---
History of Present Illness - Chief Complaint Chief Complaint: pneumonia History of Present Illness: is a 71 year old female who has had worsening cough, shortness of breath and fatigue. She was found to be hypoxic in the ER yesterday with diffuse bilateral infiltrates. failed outpatient therapy with augmentin. - Review of Systems Constitutional: Fever, Chills Respiratory: Cough, Short Of Breath Cardiac: No Chest Pain, No Edema, No Syncope Abdominal/Gastrointestinal: No Abdominal Pain, No Nausea, No Vomiting, No Diarrhea Skin: No Rash All Other Systems: Reviewed and Negative Medications & Allergies Home Medications: Home Medication List Gabapentin [Neurontin] 200 mg PO HS 07/28/16 [History Confirmed 03/22/17] Levothyroxine Sodium 50 Mcg [Synthroid 50 Mcg] 50 mcg PO DAILY 07/28/16 [ History Confirmed 03/22/17] Metoprolol Tartrate 25 mg [Lopressor 25MG Tab] 0.5 tab PO BID #30 tab 09/01 [Rx Confirmed 03/22/17] Calcium Carbonate [Tums] 1 tab PO TIDWMEALS PRN 02/15/17 [History Confirmed 03/03] Apixaban [Eliquis] 5 mg PO BID #0 tablet 02/18/17 [Rx Confirmed 03/22/17] Prednisolone [Millipred] 5 mg PO DAILY 03/22/17 [History Confirmed 03/22/17] Allergies/Adverse Reactions: Allergies Allergy/AdvReac Type Severity Reaction Status Date / Time propoxyphene HCl Allergy Verified 01/31/17 13:29 [From Dwayne] - Past Medical History Past Medical History: Yes Neurological History: No Pertinent History ENT History: No Pertinent History Cardiac History: Arrhythmia Respiratory History: No Pertinent History Endocrine Medical History: Hypothyroidism Musculoskelatal History: Fibromyalgia, Rheumatoid Arthritis GI Medical History: GERD History: No Pertinent History Pyscho-Social History: No Pertinent History Reproductive Disorders: No Pertinent History - Female History Hx Last Menstrual Period: post Are you now?: No - Past Surgical History Past Surgical History: Yes Neuro Surgical History: No Pertinent History Cardiac History: No Pertinent History Respiratory Surgery: No Pertinent History GI Surgical History: No Pertinent History Genitourinary Surgical Hx: No Pertinent History Musculskeletal Surgical Hx: Orthopedic Surgery Female Surgical History: Tubal Ligation Other Surgical History: RIGHT ANKLE SURGERY,BILATERAL HAND SURGERY, lymph node biopsy gall bladder removed - Social History Smoking Status: Never smoker Exposure to second hand smoke: No Alcohol: None Drug Use: none Significant Family History: no pertinent family hx - Physical Exam Vital Signs: Vital Signs - 24 hr Temp Pulse Resp BP Pulse Ox 03/23/17 07:48 115 H 93 L 03/23/17 06:59 106 H 26 H 94 L 03/23/17 06:40 100.1 F 113 H 29 H 126/62 95 03/23/17 06:39 95 03/23/17 06:02 102 H 25 H 114/62 94 L 03/23/17 05:42 28 H 03/23/17 05:41 94 L 03/23/17 05:04 91 L 03/23/17 04:00 108 H 26 H 97/49 96 03/23/17 03:58 106 H 03/23/17 03:54 97 03/23/17 03:01 101.1 F 107 H 34 H 106/65 94 L 03/23/17 02:38 93 L 03/23/17 02:07 108 H 25 H 94 L 03/23/17 01:50 95 03/23/17 01:49 92 H 03/23/17 01:00 92 H 22 116/54 94 L 03/23/17 00:56 95 03/23/17 00:10 98 H 25 H 136/67 95 03/22/17 23:51 109 H 03/22/17 23:50 100.9 F 109 H 22 163/67 03/22/17 23:27 92 L 03/22/17 23:19 93 L 03/22/17 22:00 95 03/22/17 21:46 88 L 03/22/17 20:35 112 H 32 H 97 03/22/17 19:15 100.4 F 110 H 25 H 132/82 95 03/22/17 18:44 100 H 20 114/60 94 L 03/22/17 18:03 81 L 03/22/17 18:02 97 03/22/17 18:00 100.4 F 106 H 16 122/58 98 03/22/17 17:58 103 H 22 118/64 96 03/22/17 17:26 104 H 16 111/63 96 03/22/17 17:20 100.1 F 03/22/17 16:50 97 H 92 L 03/22/17 16:18 81 L 03/22/17 16:17 20 81 L 03/22/17 16:11 98.0 F 78 22 113/54 81 L Oxygen-Last 24 hours O2 Percentage 6 Liters = 44% O2 Percentage 6 Liters = 44% O2 Percentage 6 Liters = 44% O2 Percentage 6 Liters = 44% O2 Percentage 6 Liters = 44% O2 Percentage 5 Liters = 40% O2 Percentage 6 Liters = 44% O2 Percentage 4 Liters = 36% General Appearance: mild distress Neurologic Exam: alert, oriented x 3, cooperative Respiratory Exam: crackles/rales (yulissa) Cardiovascular Exam: regular rate/rhythm, normal heart sounds, normal peripheral pulses Gastrointestinal/Abdomen Exam: soft, normal bowel sounds, No tenderness, No mass Extremity Exam: normal inspection, normal range of motion, pelvis stable Skin Exam: normal color, warm, dry, No rash Results - Labs Lab/Micro Results: Lab Results-Last 24 Hours 03/23/17 03/23/17 03/23/17 Range/Units 02:30 05:20 05:20 WBC 5.7 (4.0-10.5) K/mm3 RBC 3.19 L (4.1-5.4) M/mm3 Hgb 10.2 L (12.0-16.0) gm/dl Hct 30.8 L (35-47) % MCV 96.6 (78-100) fl MCH 31.9 (26-32) pg MCHC 33.1 (32-36) g/dl RDW 16.0 H (11.5-14.0) % Plt Count 97 L (150-450) K/mm3 MPV 11.2 H (6-9.5) fl Sodium 139 (136-145) mEq/L Potassium 3.5 (3.5-5.1) mEq/L Chloride 105 (98-107) mEq/L Carbon Dioxide 22.9 (21-32) mEq/L Anion Gap 14.8 (5-15) MEQ/L BUN 24 H (9-20) mg/dL Creatinine 1.18 (0.55-1.30) mg/dl Estimated GFR 48 ML/MIN Glucose 92 (70-110) MG/DL Calcium 9.3 (8.5-10.1) mg/dL Prealbumin 8.9 L (18.0-35.7) mg/dL Ur Collection Type CLEAN CATCH Urine Color YELLOW (YELLOW) Urine Appearance CLEAR (CLEAR) Urine pH 6.0 (5-6) Ur Specific [place] 1.015 (1.005-1.025) Urine Protein TRACE (Negative) Urine Ketones NEGATIVE (NEGATIVE) Urine Blood 5-10 (0-5) Thad/ul Urine Nitrite NEGATIVE (NEGATIVE) Urine Bilirubin NEGATIVE (NEGATIVE) Urine Urobilinogen NORMAL (0-1) mg/dL Ur Leukocyte Esterase NEGATIVE (NEGATIVE) Urine Microscopic RBC 2-5 (0-2) /HPF Urine Microscopic WBC 2-5 (0-5) /HPF Ur Epithelial Cells MANY (FEW) /HPF Urine Bacteria MODERATE (NEGATIVE) /HPF Urine Mucus SLIGHT (NEGATIVE) /HPF Urine Glucose NEGATIVE (NEGATIVE) mg/dL Slides for Path Review YES Specimen Received 03/23/17 0230 03/23/17 Range/Units 05:30 WBC (4.0-10.5) K/mm3 RBC (4.1-5.4) M/mm3 Hgb (12.0-16.0) gm/dl Hct (35-47) % MCV (78-100) fl MCH (26-32) pg MCHC (32-36) g/dl RDW (11.5-14.0) % Plt Count (150-450) K/mm3 MPV (6-9.5) fl Sodium (136-145) mEq/L Potassium (3.5-5.1) mEq/L Chloride (98-107) mEq/L Carbon Dioxide (21-32) mEq/L Anion Gap (5-15) MEQ/L BUN (9-20) mg/dL Creatinine (0.55-1.30) mg/dl Estimated GFR ML/MIN Glucose (70-110) MG/DL Calcium (8.5-10.1) mg/dL Prealbumin (18.0-35.7) mg/dL Ur Collection Type CATH Urine Color YELLOW (YELLOW) Urine Appearance CLEAR (CLEAR) Urine pH 6.0 (5-6) Ur Specific [place] 1.015 (1.005-1.025) Urine Protein TRACE (Negative) Urine Ketones NEGATIVE (NEGATIVE) Urine Blood NEGATIVE (0-5) Thad/ul Urine Nitrite NEGATIVE (NEGATIVE) Urine Bilirubin NEGATIVE (NEGATIVE) Urine Urobilinogen NORMAL (0-1) mg/dL Ur Leukocyte Esterase NEGATIVE (NEGATIVE) Urine Microscopic RBC (0-2) /HPF Urine Microscopic WBC (0-5) /HPF Ur Epithelial Cells (FEW) /HPF Urine Bacteria (NEGATIVE) /HPF Urine Mucus (NEGATIVE) /HPF Urine Glucose NEGATIVE (NEGATIVE) mg/dL Slides for Path Review Specimen Received 03/23/17 6051 - Radiology Impressions Radiology Exams & Impressions: Radiology Procedures Category Date Time Status CHEST WITHOUT CONTRAST [CT] Urgent Exams 03/23/17 08:29 Ordered PULMONARY PERF VENTILATION [NUCMED] Stat Exams 03/23/17 08:28 Ordered - Other Procedures and Tests Respiratory Therapy 03/22/17 17:34 BiPap/CPAP Assessment STAT 03/23/17 06:56 Oxygen NASAL CANNULA 5 lpm Assessment/Plan (1) Pneumonia Current Visit: Yes Status: Acute Assessment & Plan: continue rocephin and levaquin, will proceed with CT chest without contrast due to renal function to further characterize. with diffuse interstitial infiltrates and hypoxia etc want to rule out ARDS picture. patient has been hypotensive and febrile so meets criteria for sepsis. will continue to treat supportively in ICU Code(s): J18.9 - PNEUMONIA, UNSPECIFIED ORGANISM (2) Sepsis Current Visit: Yes Status: Acute (3) Elevated d-dimer Current Visit: Yes Status: Acute Assessment & Plan: V/Q scan due to renal function. continue eliquis for atrial fibrillation Code(s): R79.89 - OTHER SPECIFIED ABNORMAL FINDINGS OF BLOOD CHEMISTRY (4) Respiratory failure Current Visit: Yes Status: Acute Code(s): J96.90 - RESPIRATORY FAILURE, UNSP , UNSP W HYPOXIA OR HYPERCAPNIA (5) History of atrial fibrillation Current Visit: No Status: Acute Code(s): Z86.79 - PERSONAL HISTORY OF OTHER DISEASES OF THE CIRCULATORY SYSTEM (6) Rheumatoid arthritis Current Visit: No Status: Acute Code(s): M06.9 - RHEUMATOID ARTHRITIS, UNSPECIFIED
[2017-03-23] MEDS: ELIQUIS PO SCH ×2 (08:49→21:13)
[2017-03-23] MEDS: Lopressor 25MG Tab PO SCH ×3 (08:49→21:12)
[2017-03-23] MEDS ORDERED: ROCEPHIN 1 Gm-D5w 50 ml Bag** 1 G/50 ML IVPB IV SCH (10:00)
[2017-03-23] MEDS ORDERED: LEVOFLOXACIN 750MG/150ML D5W 750 MG/150 ML BAG IV SCH (10:00)
[2017-03-23] MEDS ORDERED: CALCIUM CARBONATE PO PRN (10:15)
[2017-03-23] MEDS ORDERED: Tums EX 750 MG PO PRN (10:16)
[2017-03-23] MEDS: DELTASONE 5 MG PO SCH (11:05)
[2017-03-23] MEDS: SYNTHROID 50 MCG PO SCH (11:05)
--- NOTE | 2017-03-23 13:38 | XRAY ---
Indication: Short of breath. Bilateral infiltrates. Multiple contiguous axial images obtained through the chest without contrast due to poor renal function. Comparison: None Mid to lower lungs degraded by respiration artifact. There is diffuse bilateral airspace disease with small bilateral effusions. Heart is not enlarged. Aorta is normal in course and caliber. There are a few shotty noncalcified mediastinal lymph nodes, largest subcarinal measuring 1.8 x 3.2 cm. Bony thorax intact with mild degenerative changes throughout the spine. Limited upper abdomen demonstrates previous cholecystectomy. Impression: Respiration artifact. Diffuse bilateral airspace disease with small bilateral effusions. Shotty mediastinal lymph nodes presumed reactive. CT DI 9.01
--- NOTE | 2017-03-23 14:21 | XRAY ---
Indication: Short of breath. Elevated d-dimer. Poor renal function. Comparison: None Patient received 4.7 mCi technetium 99 microaggregated albumin for the perfusion portion of the exam. Patient inhaled 36.4 mCi aerosolized technetium 99 DTPA for the ventilation portion. Multiple planar images obtained. Perfusion images demonstrates homogeneous radiopharmaceutical activity bilaterally. Ventilation images demonstrates radiopharmaceutical activity predominantly in the mid to lower lungs bilaterally with little activity in the upper lungs. Impression: 1. No segmental/subsegmental perfusion defects to suggest pulmonary embolus. 2. Abnormal ventilation images demonstrating little radiopharmaceutical activity in both upper lungs. Chest x-ray one day earlier confirms diffuse bilateral airspace disease.
[2017-03-23] MEDS: Neurontin 100 MG PO SCH (21:13)
[2017-03-24] MEDS: TYLENOL 325 MG PO PRN ×3 (02:13→22:03)
[2017-03-24 03:24] LABS: A-aADO2 470; ARTERIAL BLD GAS O2 SATURATION 98.9 % (95-100); ARTERIAL BLOOD GAS BASE EXCESS -1.8 (-2.0-2.0); ARTERIAL BLOOD GAS FIO2 100 %; ARTERIAL BLOOD GAS PO2 206 mmHg (75-100); ARTERIAL BLOOD GAS pH 7.46 (7.35-7.45)
[2017-03-24 03:25] LABS: ALLEN TEST OK? YES
[2017-03-24 03:26] LABS: BASOPHIL % 0.7 % (0.0-0.4); Eosinophil % 0.9 % (0.00-5.0); Granulocytes % 67.3 % (36.0-66.0); Lymphocytes % 29.6 % (24.0-44.0); Mean Cell Volume 95.5 fl (78-100); Mean Corpuscular Hemoglobin 31.7 pg (26-32); Mean Platelet Volume 10.7 fl (6-9.5); Monocytes % 1.5 % (0.0-12.0); Platelet Count 94 K/mm3 (150-450); Red Blood Count 3.34 M/mm3 (4.1-5.4); Red Cell Distribution Width 16.2 % (11.5-14.0); White Blood Count 5.3 K/mm3 (4.0-10.5)
[2017-03-24] MEDS ORDERED: Zofran 4 MG/2 ML VIAL IV PRN (03:42)
[2017-03-24 03:51] LABS: ALBUMIN 1.6 g/dL (3.4-5.0); ALKALINE PHOSPHATASE 113 U/L (46-116); ANION GAP 16.1 MEQ/L (5-15); BLOOD UREA NITROGEN 20 mg/dL (9-20); CHLORIDE 107 mEq/L (98-107); Carbon Dioxide 20.1 mEq/L (21-32); Glucose 78 MG/DL (70-110); Potassium 3.7 mEq/L (3.5-5.1); SGOT/AST 87 U/L (15-37); SGPT/ALT 27 U/L (12-78); SODIUM 140 mEq/L (136-145); Total Protein 5.3 gm/dL (6.4-8.2)
[2017-03-24] MEDS ORDERED: solu-CORTEF 100MG IV ONE (03:59)
[2017-03-24] MEDS ORDERED: Lasix 20 MG/2 ML IV ONE (04:12)
[2017-03-24] MEDS ORDERED: solu-MEDROL 125 MG ONE (04:22)
[2017-03-24] MEDS ORDERED: PHARMACY DOSING REQUIRED: VANCOMYCIN IV ONE (04:34)
[2017-03-24] MEDS: Zosyn 3.375GM/100 Ml D5W 3.375 GM/100 ML IVPB IV SCH ×3 (04:59→18:28)
--- NOTE | 2017-03-24 05:01 | PCM.NOTE ---
Date and Time: 03/24/17 0455 Subjective Assessment: she has had increasing shortness of breath and nausea. temp was elevating but no actual fever noted she was given tylenol when it increased to 99.5. She was put back on bipap and FiO2 had to be increased from 40% to 100% and she became more tachycardiac between 1 and 2 am. I was contacted at about 3 am and was in to see the patient at about 3:45 am at the patient bedside for evaluation, history and medical chart review for 1 hour. she denies chest pain she denies abdominal pain she has not vomited. She was having back pain that improved with the tylenol. Objective Exam General Appearance: mild distress, alert, anxiety Neurologic Exam: alert, oriented x 3, cooperative Skin Exam: warm, dry, No rash, No petechiae, No jaundice Eye Exam: PERRL, EOMI, eyes nml inspection, No scleral icterus, No pale conjunctivae Ears, Nose, Throat Exam: normal ENT inspection, moist mucous membranes Neck Exam: normal inspection, non-tender, supple, full range of motion Respiratory Exam: lungs clear, respiratory distress, diminished breath sounds, crackles/rales (throughout) Cardiovascular Exam: normal heart sounds, normal peripheral pulses, tachycardia , No edema Gastrointestinal/Abdomen Exam: soft, No tenderness, No mass Extremity Exam: normal inspection, normal range of motion Back Exam: normal inspection, No vertebral tenderness OBJECTIVE DATA Vital Signs: Vital Signs - 24 hr Temp Pulse Resp BP Pulse Ox 03/24/17 03:51 117 H 93 L 03/24/17 03:00 117 H 29 H 104/54 98 03/24/17 02:00 35 H 87 L 03/24/17 01:00 93 L 03/23/17 23:48 97.8 F 88 26 H 104/54 93 L 03/23/17 23:41 86 03/23/17 23:39 90 L 03/23/17 23:00 95 03/23/17 21:33 97 H 28 H 118/62 90 L 03/23/17 20:41 92 L 03/23/17 20:00 98 H 95 03/23/17 19:16 102 H 25 H 94 L 03/23/17 17:36 16 94 L 03/23/17 17:00 96 03/23/17 15:52 99.9 F 98 H 18 132/66 96 03/23/17 15:33 104 H 92 L 03/23/17 14:58 92 L 03/23/17 13:58 99 F 109 H 23 111/59 96 03/23/17 13:00 94 L 03/23/17 12:00 113 H 93 L 03/23/17 11:00 93 L 03/23/17 09:52 98.9 F 108 H 23 90/51 93 L 03/23/17 08:53 93 L 03/23/17 07:48 115 H 93 L 03/23/17 06:59 106 H 26 H 94 L 03/23/17 06:40 100.1 F 113 H 29 H 126/62 95 03/23/17 06:39 95 03/23/17 06:02 102 H 25 H 114/62 94 L 03/23/17 05:42 28 H 03/23/17 05:41 94 L 03/23/17 05:04 91 L Oxygen-Last 24 hours O2 Percentage 6 Liters = 44% O2 Percentage 5 Liters = 40% O2 Percentage 6 Liters = 44% O2 Percentage 6 Liters = 44% Pain Assessment - Last Documented Pain Intensity 6 Pain Scale Used 0-10 Pain Scale Intake and Output: Intake & Output 03/21/17 03/22/17 03/23/17 03/24/17 11:59 11:59 11:59 11:59 Intake Total 1397 2223 Output Total 550 1450 Balance 847 773 Weight 60.7 kg Lab Results: Lab Results-Last 24 Hours 03/23/17 03/23/17 03/23/17 Range/Units 05:20 05:20 05:30 WBC 5.7 (4.0-10.5) K/mm3 RBC 3.19 L (4.1-5.4) M/mm3 Hgb 10.2 L (12.0-16.0) gm/dl Hct 30.8 L (35-47) % MCV 96.6 (78-100) fl MCH 31.9 (26-32) pg MCHC 33.1 (32-36) g/dl RDW 16.0 H (11.5-14.0) % Plt Count 97 L (150-450) K/mm3 MPV 11.2 H (6-9.5) fl Gran % (36.0-66.0) % Lymphocytes % (24.0-44.0) % Monocytes % (0.0-12.0) % Eosinophils % (0.00-5.0) % Basophils % (0.0-0.4) % Basophils # (0-0.4) Puncture Site pCO2 (35-45) mmHg pO2 (75-100) mmHg Base Excess (-2.0-2.0) O2 Saturation (94-100) g/dF ABG pH (7.35-7.45) ABG HCO3 (22-28) ABG O2 Sat (Measured) (95-100) % Esa Test A-a Gradient a/A Ratio Hemoglobin Carboxyhemoglobin (0.0-6.9) % THgb Methemoglobin (1.4-1.5) % Temperature C POC O2 Flow Rate % Sodium 139 (136-145) mEq/L Potassium 3.5 (3.5-5.1) mEq/L Chloride 105 (98-107) mEq/L Carbon Dioxide 22.9 (21-32) mEq/L Anion Gap 14.8 (5-15) MEQ/L BUN 24 H (9-20) mg/dL Creatinine 1.18 (0.55-1.30) mg/dl Estimated GFR 48 ML/MIN Glucose 92 (70-110) MG/DL Calcium 9.3 (8.5-10.1) mg/dL Total Bilirubin (0.2-1.0) mg/dL AST (15-37) U/L ALT (12-78) U/L Alkaline Phosphatase (46-116) U/L Serum Total Protein (6.4-8.2) gm/dL Albumin (3.4-5.0) g/dL Prealbumin 8.9 L (18.0-35.7) mg/dL Ur Collection Type CATH Urine Color YELLOW (YELLOW) Urine Appearance CLEAR (CLEAR) Urine pH 6.0 (5-6) Ur Specific [place] 1.015 (1.005-1.025) Urine Protein TRACE (Negative) Urine Ketones NEGATIVE (NEGATIVE) Urine Blood NEGATIVE (0-5) Thad/ul Urine Nitrite NEGATIVE (NEGATIVE) Urine Bilirubin NEGATIVE (NEGATIVE) Urine Urobilinogen NORMAL (0-1) mg/dL Ur Leukocyte Esterase NEGATIVE (NEGATIVE) Urine Glucose NEGATIVE (NEGATIVE) mg/dL Slides for Path Review YES Specimen Received 03/23/17 0530 03/24/17 03/24/17 03/24/17 Range/Units 03:01 03:20 03:20 WBC 5.3 (4.0-10.5) K/mm3 RBC 3.34 L (4.1-5.4) M/mm3 Hgb 10.6 L (12.0-16.0) gm/dl Hct 31.9 L (35-47) % MCV 95.5 (78-100) fl MCH 31.7 (26-32) pg MCHC 33.2 (32-36) g/dl RDW 16.2 H (11.5-14.0) % Plt Count 94 L (150-450) K/mm3 MPV 10.7 H (6-9.5) fl Gran % 67.3 H (36.0-66.0) % Lymphocytes % 29.6 (24.0-44.0) % Monocytes % 1.5 (0.0-12.0) % Eosinophils % 0.9 (0.00-5.0) % Basophils % 0.7 (0.0-0.4) % Basophils # 0.04 (0-0.4) Puncture Site RIGHT BRACHIAL pCO2 30 L (35-45) mmHg pO2 206 H* (75-100) mmHg Base Excess -1.8 (-2.0-2.0) O2 Saturation 95.2 (94-100) g/dF ABG pH 7.46 H (7.35-7.45) ABG HCO3 21.3 L (22-28) ABG O2 Sat (Measured) 98.9 (95-100) % Esa Test YES A-a Gradient 470 a/A Ratio 0.30 Hemoglobin 11.0 Carboxyhemoglobin 2.2 (0.0-6.9) % THgb Methemoglobin 1.4 (1.4-1.5) % Temperature 37.0 C POC O2 Flow Rate 100 % Sodium 140 (136-145) mEq/L Potassium 3.6 3.7 (3.5-5.1) mEq/L Chloride 107 (98-107) mEq/L Carbon Dioxide 20.1 L (21-32) mEq/L Anion Gap 16.1 H (5-15) MEQ/L BUN 20 (9-20) mg/dL Creatinine 0.84 (0.55-1.30) mg/dl Estimated GFR > 60 ML/MIN Glucose 78 (70-110) MG/DL Calcium 8.9 (8.5-10.1) mg/dL Total Bilirubin 0.40 (0.2-1.0) mg/dL AST 87 H (15-37) U/L ALT 27 (12-78) U/L Alkaline Phosphatase 113 (46-116) U/L Serum Total Protein 5.3 L (6.4-8.2) gm/dL Albumin 1.6 L (3.4-5.0) g/dL Prealbumin (18.0-35.7) mg/dL Ur Collection Type Urine Color (YELLOW) Urine Appearance (CLEAR) Urine pH (5-6) Ur Specific [place] (1.005-1.025) Urine Protein (Negative) Urine Ketones (NEGATIVE) Urine Blood (0-5) Thad/ul Urine Nitrite (NEGATIVE) Urine Bilirubin (NEGATIVE) Urine Urobilinogen (0-1) mg/dL Ur Leukocyte Esterase (NEGATIVE) Urine Glucose (NEGATIVE) mg/dL Slides for Path Review YES Specimen Received Radiology Exams: Radiology Procedures Category Date Time Status CHEST 1 VIEW (PORTABLE) Stat Exams 03/24/17 03:01 Taken CHEST WITHOUT CONTRAST [CT] Urgent Exams 03/23/17 08:29 Completed PICC LINE PLACEMENT Routine Exams 03/24/17 04:44 Ordered PULMONARY PERF VENTILATION [NUCMED] Stat Exams 03/23/17 08:28 Completed Assessment/Plan (1) Acute hypoxemic respiratory failure Current Visit: Yes Status: Acute Assessment & Plan: She was released from [facility] about 1 month ago and has been continued to worsen since that time. Some of the records were found from this stay in her outpatient records. She is on anti TNF and previously methotrexate and prednisone prior to developing her illness she was hospitalized for her cholecystectomy and again after this but never improved. A tagged wbc scan in early february at [facility] was unremarkable. It appears she has had multiple negative blood cultures done the other testing with Dr. Quiroz is not available at this time. The patient states she was told she had mono by him. echo done 1 month ago was unremarkable with preserved EF. Chest x-ray in early February showed diffuse pulmonary infiltrates. She had been treated with Rocephin in [facility] and Augmentin it appears as outpatient. Her CXR was reviewed this am and it appears to show worsening of the bilateral interstitial opacities. She is more tachycardic and tachypneic and increased O2 requirements on 15L HiFlow NC currently and pulse ox in the mid 90's but desat with any exertion. She did not tolerate the bipap well. the abg is reviewed and lactic acid not in computer for some reason was 1.3 on the abg With the prolonged symptoms and the immune compromised state and the appearance on the CT and CXR will get d glycan testing for possible Pneumocystis pneumonia will start empiric therapy with her acutely decompensation respiratory status and prolonged fevers with Septra 20 mg/kg divided q8h will also broaden coverage for her health care associated pneumonia and her immune compromised state will stop the ceftriaxone and continue the levaquin and start zosyn and vanc as well if no clinical improvement will consider broader fungal coverage as well Will have PICC placed She is given lasix 20 mg IV once now and will monitor Hydrocortisone 100mg IV once now and will continue 50 mg Iv q6h for sepsis We discussed transfer to higher level of care she refuses at this time. She is upset with her care at [facility] and does not want to be transfered at this time. We discussed if there is no clinical improvement she may require transfer to higher [facility] level of care Code(s): J96.01 - ACUTE RESPIRATORY FAILURE WITH HYPOXIA (2) Sepsis Current Visit: Yes Status: Acute (3) Pneumonia Current Visit: Yes Status: Acute Qualifiers: Laterality: bilateral Code(s): J18.9 - PNEUMONIA, UNSPECIFIED ORGANISM (4) Immunocompromised status associated with infection Current Visit: Yes Status: Acute Code(s): D84.9 - IMMUNODEFICIENCY, UNSPECIFIED; B99.9 - UNSPECIFIED INFECTIOUS DISEASE (5) Rheumatoid arthritis Current Visit: Yes Status: Chronic Code(s): M06.9 - RHEUMATOID ARTHRITIS, UNSPECIFIED
[2017-03-24] MEDS ORDERED: VANCOCIN 1 GM VIAL*** 1 GM in Sodium Chloride 0.9% 250 ML 250 ML IV SCH (05:30)
[2017-03-24] MEDS ORDERED: Vancomycin 1GM/ Ns 250ML*** 250 ML IV ONE (05:46)
--- NOTE | 2017-03-24 06:45 | XRAY ---
Indication: Tachypnea and hypoxemia. Comparison: March 22, 2017. Portable chest demonstrates progressive worsening diffuse bilateral airspace disease. CT proven small bibasilar effusions minimally worsened on the left. Heart is not enlarged. Comment: Preliminary interpretation was made by [facility]. No discrepancy.
[2017-03-24] MEDS ORDERED: Phenergan 25 MG INJ IV PRN (06:59)
[2017-03-24] MEDS ORDERED: SEPTRA IV SCH ×2 (08:00→15:00)
[2017-03-24] MEDS ORDERED: DEXTROSE IV SCH ×2 (08:00→15:00)
[2017-03-24] MEDS ORDERED: WATER IV SCH ×2 (08:00→15:00)
[2017-03-24] MEDS: DELTASONE 5 MG PO SCH (09:46)
[2017-03-24] MEDS: SYNTHROID 50 MCG PO SCH (09:46)
[2017-03-24] MEDS: solu-CORTEF 100MG IV SCH ×3 (09:47→22:05)
[2017-03-24] MEDS: ELIQUIS PO SCH ×2 (09:47→22:04)
[2017-03-24] MEDS: Lopressor 25MG Tab PO SCH ×2 (09:48→22:05)
[2017-03-24] MEDS ORDERED: LEVOFLOXACIN 750MG/150ML D5W 750 MG/150 ML BAG IV SCH (10:00)
[2017-03-24] MEDS ORDERED: PREDNISOLONE 5 MG PO SCH (10:00)
[2017-03-24] MEDS: xanAX 0.25 MG PO PRN ×3 (12:32→22:04)
[2017-03-24] MEDS: WATER IV SCH ×2 (15:04→22:53)
[2017-03-24] MEDS: DEXTROSE IV SCH ×2 (15:04→22:53)
[2017-03-24] MEDS: SEPTRA IV SCH ×2 (15:04→22:53)
--- NOTE | 2017-03-24 21:57 | XRAY ---
Indication: PICC line placement. Comparison: Taken earlier in the day. Portable chest demonstrates new right arm PICC line with the tip projecting over the distal SVC. Stable diffuse bilateral airspace disease with small bibasilar effusions. Heart is not enlarged. Comment: Preliminary interpretation was made by [facility]. No discrepancy.
[2017-03-24] MEDS: Neurontin 100 MG PO SCH (22:04)
[2017-03-25] MEDS: Zosyn 3.375GM/100 Ml D5W 3.375 GM/100 ML IVPB IV SCH ×2 (00:04→06:06)
[2017-03-25] MEDS ORDERED: solu-CORTEF 100MG ONE (03:57)
[2017-03-25] MEDS ORDERED: VANCOCIN 1 GM VIAL*** 1 GM in Sodium Chloride 0.9% 250 ML 250 ML IV SCH (04:00)
[2017-03-25] MEDS: solu-CORTEF 100MG IV SCH ×2 (04:04→10:06)
[2017-03-25 05:38] LABS: BASOPHIL % 0.1 % (0.0-0.4); Granulocytes % 79.9 % (36.0-66.0); Lymphocytes % 16.2 % (24.0-44.0); Mean Corpuscular Hemoglobin 31.5 pg (26-32); Mean Platelet Volume 10.9 fl (6-9.5); Monocytes % 3.8 % (0.0-12.0); Platelet Count 75 K/mm3 (150-450); Red Blood Count 2.79 M/mm3 (4.1-5.4); White Blood Count 7.7 K/mm3 (4.0-10.5)
[2017-03-25 06:07] LABS: ALBUMIN 1.3 g/dL (3.4-5.0); ANION GAP 11.6 MEQ/L (5-15); BILIRUBIN,TOTAL 0.5 mg/dL (0.2-1.0); Carbon Dioxide 23.2 mEq/L (21-32); MAGNESIUM 1.3 mg/dL (1.8-2.4); Potassium 3.1 mEq/L (3.5-5.1); Total Protein 4.5 gm/dL (6.4-8.2)
[2017-03-25] MEDS: WATER IV SCH (07:15)
[2017-03-25] MEDS: SEPTRA IV SCH (07:15)
[2017-03-25] MEDS: DEXTROSE IV SCH (07:15)
[2017-03-25] MEDS ORDERED: Klor Con 10 MEQ PO ONE (07:47)
[2017-03-25 08:19] VITALS: PULSE 90
--- NOTE | 2017-03-25 08:41 | PCM.DS ---
Discharge Summary Date of Admission: 03/22/17 19:10 Date of Discharge: 03/25/2017 Admitting Physician: GREGORIO CISNEROS Primary Care Provider: QUYNH QUIROZ Allergies Allergies propoxyphene HCl [From Darvon] Allergy (Verified 01/31/17 13:29) nausea Hospital Summary - Hospital Course Hospital Course: She was released from [facility] about 1 month ago and has been continued to worsen since that time. Some of the records were found from this stay in her outpatient records. She is on anti TNF Cimzia with last injection 1 week ago and prednisone and previously methotrexate until 1 month ago prior to developing her illness. She was hospitalized for her cholecystectomy and again post operatively after this but never improved at [facility]. A tagged wbc scan in early february at [facility] was unremarkable. It appears she has had multiple negative blood cultures done the other testing with Dr. Quiroz is not available at this time. The patient states she was told she had mono by him but this testing is not available to me. echo done 1 month ago was unremarkable with preserved EF. Chest x-ray in early February showed diffuse pulmonary infiltrates and she had been treated with Rocephin in [facility] and Augmentin it appears as outpatient prior to arrival she reports no other recent antibiotics. She is on Eliquis with history of paroxysmal atrial fibrillation and follows with Dr. Hayes. She continued to have fevers to 102 and weakness and shortness of breath and came to outpatient clinic and treated with the augmentin. Her shortness of breath was worsening and still febrile so presented to ED on 03/[address]. [address] showed diffuse alveolar opacities bilateral and CXR worsened after initial treatment with Rocephin and Levaquin and she remained tachycardic with high oxygen requirements and bipap requiring up to 100% FiO2. She was given lasix and antibiotics were changed to Zosyn, Vanc, Septra at 20 mg /kg IV, and Levaquin on 03/24/17 and this improved her tachycardia but still required high flow oxygen during the day and bipap with laying down with FiO2 requirements up to 100%. With her sepsis she was also started on hydrocortisone 50 mg iv q6h on 03/24/17. She has D glycan blood testing pending she does not have any productive sputum for testing. She has legionella testing pending as well. and a lung hypersensitivity panel all cultures have been no growth to date and she has not produced any sputum. She had PICC placed on 03/24/17 in right upper extremity her hemoglobin is trending down and platelets trending down. She has not had a bowel movement in 4 days. She was started on senna-s on 03/25. Concern currently is for a possible Pneumocystis pneumonia or possibly fungal in origin vs lymphoma or immune reaction. We discussed transfer to higher level of care she refuses yesterday after the acute worsening but this am she is requesting to be transfered due to her severe shortness of breath last night. We will transfer to higher level of care with ability of pulmonary and infectious disease consult. 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 - Vitals & Intake/Output Vital Signs: Vital Signs Temperature 97.4 F 03/25/17 08:00 Pulse Rate 90 03/25/17 08:00 Respiratory Rate 19 03/25/17 08:00 Blood Pressure 107/63 03/25/17 08:00 O2 Sat by Pulse Oximetry 95 03/25/17 08:00 Oxygen-Last Documented O2 Percentage 100% Intake & Output: Intake & Output 03/22/17 03/23/17 03/24/17 03/25/17 11:59 11:59 11:59 11:59 Intake Total 1397 2938 3213 Output Total 550 1900 1875 Balance 847 1038 1338 Weight 60.7 kg 63.3 kg 63.5 kg - Lab Result Diagrams: 03/25/17 05:30 03/25/17 05:30 Lab Results-Last 24 Hrs: Lab Results-Last 24 Hours 03/25/17 03/25/17 Range/Units 05:30 05:30 WBC 7.7 (4.0-10.5) K/mm3 RBC 2.79 L (4.1-5.4) M/mm3 Hgb 8.8 L (12.0-16.0) gm/dl Hct 26.5 L (35-47) % MCV 95.0 (78-100) fl MCH 31.5 (26-32) pg MCHC 33.2 (32-36) g/dl RDW 16.0 H (11.5-14.0) % Plt Count 75 L (150-450) K/mm3 MPV 10.9 H (6-9.5) fl Gran % 79.9 H (36.0-66.0) % Lymphocytes % 16.2 L (24.0-44.0) % Monocytes % 3.8 (0.0-12.0) % Eosinophils % 0.0 (0.00-5.0) % Basophils % 0.1 (0.0-0.4) % Basophils # 0.01 (0-0.4) Sodium 143 (136-145) mEq/L Potassium 3.1 L (3.5-5.1) mEq/L Chloride 111 H (98-107) mEq/L Carbon Dioxide 23.2 (21-32) mEq/L Anion Gap 11.6 (5-15) MEQ/L BUN 20 (9-20) mg/dL Creatinine 1.06 (0.55-1.30) mg/dl Estimated GFR 54 ML/MIN Glucose 104 (70-110) MG/DL Calcium 7.9 L (8.5-10.1) mg/dL Magnesium 1.3 L (1.8-2.4) mg/dL Total Bilirubin 0.50 (0.2-1.0) mg/dL AST 77 H (15-37) U/L ALT 20 (12-78) U/L Alkaline Phosphatase 83 (46-116) U/L Serum Total Protein 4.5 L (6.4-8.2) gm/dL Albumin 1.3 L (3.4-5.0) g/dL Micro Results-Entire Visit: Microbiology 03/23/17 06:05 Urine Culture - Final Catherized NO GROWTH - Radiology Exams Ordered Rad Exams-Entire Visit: Radiology Procedures Category Date Time Status CHEST 1 VIEW (PORTABLE) Stat Exams 03/24/17 03:01 Completed CHEST 1 VIEW (PORTABLE) Stat Exams 03/24/17 18:03 Completed CHEST WITHOUT CONTRAST [CT] Urgent Exams 03/23/17 08:29 Completed PULMONARY PERF VENTILATION [NUCMED] Stat Exams 03/23/17 08:28 Completed - Procedures and Test Procedures and Tests throughout Hospitalization: Therapy Orders & Screens 03/22/17 17:34 BiPap/CPAP Assessment STAT Comment: Diagnosis: Shortness of Breath 03/23/17 01:12 Respiratory Therapy Consult ROUTINE Comment: Reason For Exam: Diagnosis: pneumonia 03/23/17 06:56 Oxygen NASAL CANNULA 5 lpm Comment: Diagnosis: pneumonia Discharge Exam General Appearance: mild distress, alert Neurologic Exam: alert, oriented x 3, cooperative, normal mood/affect Skin Exam: normal color, warm, dry Eye Exam: PERRL, EOMI, eyes nml inspection, pale conjunctivae Ears, Nose, Throat Exam: normal ENT inspection, pharynx normal, moist mucous membranes Neck Exam: normal inspection, non-tender, supple, full range of motion Respiratory Exam: normal breath sounds, crackles/rales, other (currently breathing at 24 RR shallow with desat with any movement) Cardiovascular Exam: regular rate/rhythm, normal heart sounds Gastrointestinal/Abdomen Exam: soft, No tenderness, No mass Extremity Exam: normal inspection, normal range of motion Back Exam: normal inspection, normal range of motion, No CVA tenderness, No vertebral tenderness Pelvic Exam: deferred Rectal Exam: deferred Final Diagnosis/Problem List - Final Discharge Diagnosis/Problem (1) Acute hypoxemic respiratory failure Current Visit: Yes Status: Acute (2) Sepsis Current Visit: Yes Status: Acute (3) Pneumonia Current Visit: Yes Status: Acute (4) Immunocompromised status associated with infection Current Visit: Yes Status: Acute (5) Rheumatoid arthritis Current Visit: Yes Status: Chronic - Discharge Discharge Date: 03/25/17 Disposition: DC TO [facility] Condition: Critical Prescriptions: No Action Gabapentin [Neurontin] 200 mg PO HS Levothyroxine Sodium 50 Mcg [Synthroid 50 Mcg] 50 mcg PO DAILY Metoprolol Tartrate 25 mg [Lopressor 25MG Tab] 0.5 tab PO BID #30 tab Calcium Carbonate [Tums] 1 tab PO TIDWMEALS PRN PRN Reason: heartburn Apixaban [Eliquis] 5 mg PO BID #0 tablet Prednisolone [Millipred] 5 mg PO DAILY Follow up with: GREGORIO CISNEROS MD [ACTIVE STAFF] - QUYNH QUIROZ MD [Primary Care Provider] -
[2017-03-25] MEDS ORDERED: Senokot-S Tablet PO ONE (09:00)
[2017-03-25] MEDS: Magnesium 1 Gm / 100 Ml D5W*** 100 ML IV SCH ×2 (09:06→10:07)
[2017-03-25] MEDS: ELIQUIS PO SCH (09:13)
[2017-03-25] MEDS: SYNTHROID 50 MCG PO SCH (09:14)
[2017-03-25] MEDS ORDERED: Klor Con 10 MEQ PO SCH (10:00)
[2017-03-25] MEDS ORDERED: PROTONIX 40 MG IV IV SCH (10:00)
[2017-03-25 10:58] LABS: BAND 4 % (0.0-2.0); Total Cells Counted 100
[2017-03-25 10:59] LABS: Platelet Estimate DECREASED (NORMAL)
[2017-03-25 11:36] VITALS: BP 112/67; O2SAT 95
[2017-03-27 22:25] LABS: Legionella Pneumophila Ab 1-6 < 1:16 (< 1:16)
[2017-03-28 06:39] LABS: Mycoplasma Pneum.Ab.IgM 0.03 U/L (<=0.76)
[2017-04-08 23:37] LABS: A.pullulans IgG 9.7 mcg/mL (< 13.6); A.tenuis IgG 83.5 mcg/mL (< 13.6); P.notatum IgG 22.2 mcg/mL (< 17.5); S.rectivirgula Antibody Not detected (Not detected); S.viridis Antibody Not detected (Not detected); T.candidus Antibody Not detected (Not detected); T.sacchari Antibody Not detected (Not detected); T.vulgaris Antibody Not detected (Not detected)
[2017-04-09 00:16] LABS: T.viride IgG 18.6 mcg/mL (< 13.4)
== END 2017-03-25 11:35 | disposition home or self-care (01) | DRG 189 ==
LOC: ED 16:02 → ICU 19:10
PROVIDERS: ADMIT Family Medicine; ATTEND Family Medicine
DX: J96.01 Acute respiratory failure with hypoxia (principal); A41.9 Sepsis, unspecified organism; J18.9 Pneumonia, unspecified organism; D84.9 Immunodeficiency, unspecified; M06.9 Rheumatoid arthritis, unspecified; Z79.01 Long term (current) use of anticoagulants; Z79.899 Other long term (current) drug therapy; K21.9 Gastro-esophageal reflux disease without esophagitis; B99.9 Unspecified infectious disease; M79.7 Fibromyalgia; E03.9 Hypothyroidism, unspecified; R79.89 Other specified abnormal findings of blood chemistry; Z86.79 Personal history of other diseases of the circulatory system
CPT/HCPCS: 36000; 36415; 36600; 71010; 71250; 78582; 80048; 80053; 81000; 81002; 82375; 82803; 83605; 83735; 83880; 84134; 84484; 85025; 85027; 85379; 85610; 86001; 86606; 86609; 86713; 86738; 87040; 87086; 87449; 87631; 93005; 93041; 94002; 94003; 94640; 96360; 96361; 96365; 96367; 99285; A9540; A9567; J0696; J1720; J1940; J1956; J2405; J2543; J2930; J3370; J3475; A9270-GY; J7506

== ENCOUNTER 2017-05-17 07:55 | Inpatient (IN) | payer MEDICARE, OTHER ==
[2017-05-17] MEDS ORDERED: solu-CORTEF 100MG IV ONE (07:59)
[2017-05-17] MEDS ORDERED: Lactated Ringers 1,000 ML IV ONE ×4 (08:00→14:01)
--- NOTE | 2017-05-17 08:06 | ERPHSYRPT ---
- History of Present Illness Time Seen by Provider: 05/17/17 07:57 Source: patient, EMS (gave oral glucose for accu check 44), snf records Physician History: CC: diarrhea Hx: 72 y/o patient of Dr Jorge Luis White at rehab. She has 2 weeks of nonbloody diarrhea. Some abdominal cramping. BP low this AM. Stool sent for c diff but pending. She has hx of afib on anticogaulation. She has hx of RA on chronic prednisone. No chest pain. No N/V. EMS noted sugar low. NH noted BP low. Severity: moderate Allergies/Adverse Reactions: propoxyphene HCl [From Darvon] Allergy (Verified 05/17/17 08:14) nausea Home Medications: Gabapentin [Neurontin] 200 mg PO HS 07/28/16 [History] Levothyroxine Sodium 50 Mcg [Synthroid 50 Mcg] 50 mcg PO DAILY 07/28/16 [ History] Calcium Carbonate [Tums] 1 tab PO TIDWMEALS PRN 02/15/17 [History] Prednisolone [Millipred] 5 mg PO DAILY 03/22/17 [History] Alprazolam 0.25 mg [xanAX 0.25 MG] 0.25 mg PO HS 05/17/17 [History] Apixaban [Eliquis] 2.5 mg PO BID 05/17/17 [History] Bumetanide 1 mg [Bumex 1 mg] 1 mg PO DAILY 05/17/17 [History] Metoprolol Tartrate 25 mg [Lopressor 25MG Tab] 0.25 tab PO BID 05/17/17 [ History] Hx Tetanus, Diphtheria Vaccination/Date Given: Yes Hx Influenza Vaccination/Date Given: Yes Hx Pneumococcal Vaccination/Date Given: Yes - Review of Systems Constitutional: Fatigue, Malaise, Weakness, No Fever, No Chills Eyes: No Symptoms Ears, Nose, & Throat: No Symptoms Respiratory: No Cough, No Dyspnea Cardiac: No Chest Pain Abdominal/Gastrointestinal: Abdominal Pain (cramping), Diarrhea, No Nausea, No Vomiting Genitourinary Symptoms: No Dysuria Skin: No Rash Neurological: No Headache Psychological: Emotional Lability ( recently ) All Other Systems: Reviewed and Negative - Past Medical History Pertinent Past Medical History: Yes Neurological History: No Pertinent History ENT History: No Pertinent History Cardiac History: Arrhythmia Respiratory History: No Pertinent History Endocrine Medical History: Hypothyroidism Musculoskeletal History: Fibromyalgia, Rheumatoid Arthritis GI Medical History: GERD History: No Pertinent History Psycho-Social History: No Pertinent History Female Reproductive Disorders: No Pertinent History - Past Surgical History Past Surgical History: Yes Neuro Surgical History: No Pertinent History Cardiac: No Pertinent History Respiratory: No Pertinent History Gastrointestinal: No Pertinent History Genitourinary: No Pertinent History Musculoskeletal: Orthopedic Surgery Female Surgical History: Tubal Ligation Other Surgical History: RIGHT ANKLE SURGERY,BILATERAL HAND SURGERY, lymph node biopsy gall bladder removed - Social History Smoking Status: Never smoker Exposure to second hand smoke: No Alcohol Use: None Drug Use: none Patient Lives Alone: No ([facility]) Significant Family History: no pertinent family hx - Female History Hx Now: No - Nursing Vital Signs Nursing Vital Signs: Initial Vital Signs Temperature 98.0 F 05/17/17 07:56 Pulse Rate 104 H 05/17/17 07:56 Respiratory Rate 18 05/17/17 07:56 Blood Pressure 104/88 05/17/17 07:56 O2 Sat by Pulse Oximetry 97 05/17/17 07:56 Pain Scale Pain Intensity 0 - Physical Exam General Appearance: alert Eye Exam: PERRL/EOMI Ears, Nose, Throat Exam: dry mucous membranes Neck Exam: normal inspection, supple Respiratory Exam: No respiratory distress Cardiovascular Exam: regular rate/rhythm Gastrointestinal/Abdomen Exam: soft, No tenderness, No distention, No guarding Extremity Exam: pedal edema Neurologic Exam: alert, oriented x 3, cooperative, sensation nml, No motor deficits Skin Exam: warm, dry, No rash - Course Nursing assessment & vital signs reviewed: Yes EKG Interpreted by Me: RATE (107), Sinus Tach, NORMAL AXIS, NORMAL INTERVALS ( QTc 433), Non-specific ST Changes - Radiology Exams AAS X-ray Interpretation: Teleradiologist Report (ascending colon wall thickening favoring colitis) Ordered Tests: Active Orders 24 hr Category Date Time Status ACCUCHECK [Accucheck] STAT Care 05/17/17 09:32 Active Cath for Specimen-Straight STAT Care 05/17/17 07:59 Active EKG-ER Only STAT Care 05/17/17 07:57 Active IV Insertion STAT Care 05/17/17 07:57 Active OBSTR/ACUTE ABDOMEN SERIES Stat Exams 05/17/17 07:58 Completed BLOOD CULTURE Stat Lab 05/17/17 08:45 Received CBC W DIFF Stat Lab 05/17/17 08:45 Completed CMP Stat Lab 05/17/17 08:45 Completed CULTURE,URINE Stat Lab 05/17/17 08:45 Received Lactic Acid Stat Lab 05/17/17 08:40 Results MAGNESIUM Stat Lab 05/17/17 08:45 Completed Manual Differential NC Stat Lab 05/17/17 08:45 Completed Occult Blood,Stool Other Stat Lab 05/17/17 08:45 Completed PROTIME WITH INR Stat Lab 05/17/17 08:45 Completed PTT Stat Lab 05/17/17 08:45 Completed UA W/ MICROSCOPIC Stat Lab 05/17/17 08:45 Completed VENOUS BLOOD GAS Stat Lab 05/17/17 08:40 Completed Medication Summary Generic Name Dose Route Start Last Admin Trade Name Freq PRN Reason Stop Dose Admin Magnesium Sulfate/Dextrose 100 mls @ 100 mls/hr 05/17/17 09:45 Magnesium 1 Gm / 100 Ml D5w IV 05/17/17 11:44 Q1H DARRELL Sodium Chloride 1,000 mls @ 999 mls/hr 05/17/17 09:40 Sodium Chloride 0.9% 1000 Ml IV 05/17/17 10:40 .Q1H1M STA Discontinued Medications Generic Name Dose Route Start Last Admin Trade Name Freq PRN Reason Stop Dose Admin Hydrocortisone Sodium Succinate 100 mg 05/17/17 07:59 05/17/17 08:46 Solu-Cortef 100mg IV 05/17/17 08:00 100 mg STAT ONE Administration Hydrocortisone Sodium Succinate Confirm 05/17/17 08:42 Solu-Cortef 100mg Administered 05/17/17 08:43 Dose 100 mg .ROUTE .STK-MED ONE Lactated Ringer's 1,000 mls @ 999 mls/hr 05/17/17 08:00 05/17/17 08:46 Lactated Ringers IV 05/17/17 09:00 999 mls/hr .Q1H1M ONE Administration Lactated Ringer's Confirm 05/17/17 08:42 Lactated Ringers Administered 05/17/17 08:43 Dose 1,000 mls @ ud IV .STK-MED ONE Lab/Rad Data: Laboratory Result Diagrams 05/17/17 08:45 05/17/17 08:45 Laboratory Results 05/17/17 05/17/17 05/17/17 Range/Units 08:45 08:45 08:45 WBC (4.0-10.5) K/mm3 RBC (4.1-5.4) M/mm3 Hgb (12.0-16.0) gm/dl Hct (35-47) % MCV (78-100) fl MCH (26-32) pg MCHC (32-36) g/dl RDW (11.5-14.0) % Plt Count (150-450) K/mm3 MPV (6-9.5) fl INR 1.44 (0.8-3.0) APTT 29.6 (25.3-37.0) SECONDS VBG pH (7.32-7.42) VBG pCO2 at Pat Temp (42-55) mm/Hg VBG pO2 at Pat Temp (25-40) mm/Hg VBG HCO3 (22-28) meq/L VBG O2 Sat (Gus) (95-100) VBG Base Excess (-2.0-2.0) VBG Hemoglobin VBG Carboxyhemoglobin (0.0-6.9) % T HGB POC Potassium (3.5-5.1) Sodium (136-145) mEq/L Potassium (3.5-5.1) mEq/L Chloride (98-107) mEq/L Carbon Dioxide (21-32) mEq/L Anion Gap (5-15) MEQ/L BUN (9-20) mg/dL Creatinine (0.55-1.30) mg/dl Estimated GFR ML/MIN Glucose (70-110) MG/DL Lactic Acid (0.4-2.0) Calcium (8.5-10.1) mg/dL Magnesium (1.8-2.4) mg/dL Total Bilirubin (0.2-1.0) mg/dL AST (15-37) U/L ALT (12-78) U/L Alkaline Phosphatase (46-116) U/L Serum Total Protein (6.4-8.2) gm/dL Albumin (3.4-5.0) g/dL Ur Collection Type CATH Urine Color YELLOW (YELLOW) Urine Appearance HAZY (CLEAR) Urine pH 5.0 (5-6) Ur Specific [place] 1.010 (1.005-1.025) Urine Protein 100 (Negative) Urine Ketones NEGATIVE (NEGATIVE) Urine Blood NEGATIVE (0-5) Thad/ul Urine Nitrite NEGATIVE (NEGATIVE) Urine Bilirubin NEGATIVE (NEGATIVE) Urine Urobilinogen NORMAL (0-1) mg/dL Ur Leukocyte Esterase TRACE (NEGATIVE) Urine Microscopic WBC 5-10 (0-5) /HPF Ur Epithelial Cells RARE (FEW) /HPF Urine Bacteria MANY (NEGATIVE) /HPF Hyaline Casts 2-5 (0-2) /LPF Urine Glucose NEGATIVE (NEGATIVE) mg/dL Stool Occult Blood POSITIVE (Negative) Specimen Received 05/17/17 0845 05/17/17 05/17/17 05/17/17 Range/Units 08:45 08:45 08:40 WBC 30.1 H* (4.0-10.5) K/mm3 RBC 3.70 L (4.1-5.4) M/mm3 Hgb 11.4 L (12.0-16.0) gm/dl Hct 34.7 L (35-47) % MCV 93.8 (78-100) fl MCH 30.8 (26-32) pg MCHC 32.9 (32-36) g/dl RDW 17.3 H (11.5-14.0) % Plt Count 284 (150-450) K/mm3 MPV 10.1 H (6-9.5) fl INR (0.8-3.0) APTT (25.3-37.0) SECONDS VBG pH (7.32-7.42) VBG pCO2 at Pat Temp (42-55) mm/Hg VBG pO2 at Pat Temp (25-40) mm/Hg VBG HCO3 (22-28) meq/L VBG O2 Sat (Gus) (95-100) VBG Base Excess (-2.0-2.0) VBG Hemoglobin VBG Carboxyhemoglobin (0.0-6.9) % T HGB POC Potassium (3.5-5.1) Sodium 135 L (136-145) mEq/L Potassium 4.5 (3.5-5.1) mEq/L Chloride 101 (98-107) mEq/L Carbon Dioxide 23.3 (21-32) mEq/L Anion Gap 15.2 H (5-15) MEQ/L BUN 34 H (9-20) mg/dL Creatinine 1.55 H (0.55-1.30) mg/dl Estimated GFR 35 ML/MIN Glucose 142 H (70-110) MG/DL Lactic Acid 3.0 H (0.4-2.0) Calcium 9.3 (8.5-10.1) mg/dL Magnesium 1.5 L (1.8-2.4) mg/dL Total Bilirubin 0.70 (0.2-1.0) mg/dL AST 28 (15-37) U/L ALT 47 (12-78) U/L Alkaline Phosphatase 153 H (46-116) U/L Serum Total Protein 5.5 L (6.4-8.2) gm/dL Albumin 1.8 L (3.4-5.0) g/dL Ur Collection Type Urine Color (YELLOW) Urine Appearance (CLEAR) Urine pH (5-6) Ur Specific [place] (1.005-1.025) Urine Protein (Negative) Urine Ketones (NEGATIVE) Urine Blood (0-5) Thad/ul Urine Nitrite (NEGATIVE) Urine Bilirubin (NEGATIVE) Urine Urobilinogen (0-1) mg/dL Ur Leukocyte Esterase (NEGATIVE) Urine Microscopic WBC (0-5) /HPF Ur Epithelial Cells (FEW) /HPF Urine Bacteria (NEGATIVE) /HPF Hyaline Casts (0-2) /LPF Urine Glucose (NEGATIVE) mg/dL Stool Occult Blood (Negative) Specimen Received 05/17/17 Range/Units 08:40 WBC (4.0-10.5) K/mm3 RBC (4.1-5.4) M/mm3 Hgb (12.0-16.0) gm/dl Hct (35-47) % MCV (78-100) fl MCH (26-32) pg MCHC (32-36) g/dl RDW (11.5-14.0) % Plt Count (150-450) K/mm3 MPV (6-9.5) fl INR (0.8-3.0) APTT (25.3-37.0) SECONDS VBG pH 7.36 (7.32-7.42) VBG pCO2 at Pat Temp 41 L (42-55) mm/Hg VBG pO2 at Pat Temp 20 L (25-40) mm/Hg VBG HCO3 23.2 (22-28) meq/L VBG O2 Sat (Gus) 34.1 L (95-100) VBG Base Excess -2.2 L (-2.0-2.0) VBG Hemoglobin 11.7 VBG Carboxyhemoglobin 1.9 (0.0-6.9) % T HGB POC Potassium 4.4 (3.5-5.1) Sodium (136-145) mEq/L Potassium (3.5-5.1) mEq/L Chloride (98-107) mEq/L Carbon Dioxide (21-32) mEq/L Anion Gap (5-15) MEQ/L BUN (9-20) mg/dL Creatinine (0.55-1.30) mg/dl Estimated GFR ML/MIN Glucose (70-110) MG/DL Lactic Acid (0.4-2.0) Calcium (8.5-10.1) mg/dL Magnesium (1.8-2.4) mg/dL Total Bilirubin (0.2-1.0) mg/dL AST (15-37) U/L ALT (12-78) U/L Alkaline Phosphatase (46-116) U/L Serum Total Protein (6.4-8.2) gm/dL Albumin (3.4-5.0) g/dL Ur Collection Type Urine Color (YELLOW) Urine Appearance (CLEAR) Urine pH (5-6) Ur Specific [place] (1.005-1.025) Urine Protein (Negative) Urine Ketones (NEGATIVE) Urine Blood (0-5) Thad/ul Urine Nitrite (NEGATIVE) Urine Bilirubin (NEGATIVE) Urine Urobilinogen (0-1) mg/dL Ur Leukocyte Esterase (NEGATIVE) Urine Microscopic WBC (0-5) /HPF Ur Epithelial Cells (FEW) /HPF Urine Bacteria (NEGATIVE) /HPF Hyaline Casts (0-2) /LPF Urine Glucose (NEGATIVE) mg/dL Stool Occult Blood (Negative) Specimen Received - Progress Progress Note: 05/17/17 08:59 WBC high. C diff positive per lab. 05/17/17 09:41 BP borderline. IVF bolus given. Current BP 76/52. Solu cortef given as pt was hypoglycemic and hypotensive with acute illness and has chronic prednisone use. Called Dr White and will admit to ICU. Will Rx po vanco. Discussed with DrVictoriano: Heather Will see patient in: hospital (full admit) Counseled pt/family regarding: lab results, diagnosis, need for follow-up, rad results - Departure Time of Disposition: 09:43 Departure Disposition: In-patient Admission (ICU) Clinical Impression: Diarrhea with dehydration, Clostridium difficile diarrhea, Chronic use of steroids Condition: Fair Critical Care Time: Yes Critical Care Time(excluding separately billable procedures): 30-74 minutes
[2017-05-17] MEDS ORDERED: solu-CORTEF 100MG ONE (08:42)
[2017-05-17 08:47] LABS: VBG BASE EXCESS -2.2 (-2.0-2.0); VBG CARBOXYHEMOGLOBIN 1.9 % T HGB (0.0-6.9); VBG HCO3- 23.2 meq/L (22-28); VBG HEMOGLOBIN 11.7; VBG O2 SATURATION 34.1 (95-100); VBG POTASSIUM 4.4 (3.5-5.1); VBG pH 7.36 (7.32-7.42)
[2017-05-17 08:56] LABS: Mean Cell Volume 93.8 fl (78-100); Mean Corpuscular Hemoglobin 30.8 pg (26-32); Mean Platelet Volume 10.1 fl (6-9.5); Platelet Count 284 K/mm3 (150-450); Red Cell Distribution Width 17.3 % (11.5-14.0)
[2017-05-17 08:59] LABS: White Blood Count 30.1 K/mm3 (4.0-10.5)
[2017-05-17 09:06] LABS: INR 1.44 (0.8-3.0); PROTIME 16.3 SECONDS (9.95-12.35)
[2017-05-17 09:09] LABS: PTT 29.6 SECONDS (25.3-37.0)
[2017-05-17 09:18] LABS: ALBUMIN 1.8 g/dL (3.4-5.0); ANION GAP 15.2 MEQ/L (5-15); BILIRUBIN,TOTAL 0.7 mg/dL (0.2-1.0); Carbon Dioxide 23.3 mEq/L (21-32); MAGNESIUM 1.5 mg/dL (1.8-2.4); Potassium 4.5 mEq/L (3.5-5.1); Total Protein 5.5 gm/dL (6.4-8.2)
[2017-05-17 09:30] LABS: Bacteria MANY /HPF (NEGATIVE); Bilirubin NEGATIVE (NEGATIVE); Blood NEGATIVE Ery/ul (0-5); COMPLETE URINE MICROSCOPIC? YES; Collection Type CATH; Epithelial Cells RARE /HPF (FEW); Glucose NEGATIVE (NEGATIVE); Leukocyte Esterase TRACE (NEGATIVE)
[2017-05-17 09:31] LABS: ADD URINE CULTURE? YES (NO)
--- NOTE | 2017-05-17 09:36 | XRAY ---
Indication: Diarrhea. C. difficile. Comparison: Chest exam April 03, 2017. Supine and left lateral decubitus abdomen nonacute and nonobstructed with incidental cholecystectomy clips. Ascending colon demonstrates wall thickening favoring colitis presumed related to C. difficile infection. Solid organs unremarkable. Osseous structures intact with mild osteopenia and lower lumbar degenerative changes. Single PA chest is now clear. Heart is not enlarged. Bony thorax intact again with mild osteopenia and degenerative changes. Impression: 1. Ascending colonic wall thickening favoring colitis presumed related to patient's reported C. difficile infection. 2. Nonacute one view chest.
[2017-05-17] MEDS ORDERED: Sodium Chloride 0.9% 1000 ML 1,000 ML IV STA (09:40)
[2017-05-17] MEDS ORDERED: Sodium Chloride 0.9% 1000 ML 1,000 ML ONE (09:45)
[2017-05-17] MEDS: Magnesium 1 Gm / 100 Ml D5W*** 100 ML IV SCH ×2 (09:46→10:42)
[2017-05-17 10:14] LABS: BAND 21 % (0.0-2.0); Platelet Estimate NORMAL (NORMAL); Total Cells Counted 100
[2017-05-17 10:15] LABS: ANISOCYTOSIS 1+; Polychromasia 1+; Toxic Granulation 1+
[2017-05-17] MEDS: VANCOMYCIN 25MG/ML COMPOUND KIT PO SCH ×4 (10:41→21:38)
[2017-05-17] MEDS ORDERED: Zofran 4 MG/2 ML VIAL IV PRN (10:45)
[2017-05-17] MEDS: Dextrose 5%-Lr IV Solution 1000 ML 1,000 ML IV SCH ×2 (10:45→16:27)
[2017-05-17 11:27] LABS: Lactic Acid 3.5 (0.4-2.0)
--- NOTE | 2017-05-17 11:56 | PCM.HP ---
History of Present Illness - Chief Complaint Chief Complaint: diarrhea Date: 05/17/17 History of Present Illness: is a 72 year old female. who began having diarrhea last week around the time her suddenly . Per the nurses at [facility] she was only having about 2 episodes per day but yesterday began to increase and suddenly became very heavy diarrhea last night watery and became weak tachycardic and having low blood pressure. She was also on a fluid restriction after her discharge from [facility] for respiratory failure from PCP vs Fungal pneumonia with ards compounding her dehydration. She has recently had her prednisone weaned as well for her chronic rheumatoid arthritis that she was previously on immune suppressive biologic agents and methotrexate prior to her last illness. currently she states she feels very weak and chilled and has mild pain in her abdomen and feels the diarrhea has slowed down this am. - Review of Systems Constitutional: Weakness, No Fever, No Chills Eyes: No Symptoms Ears, Nose, & Throat: No Symptoms Respiratory: No Cough, No Short Of Breath Cardiac: Edema, No Chest Pain, No Syncope Abdominal/Gastrointestinal: Abdominal Pain, Diarrhea, No Nausea, No Vomiting Genitourinary Symptoms: No Dysuria Musculoskeletal: No Back Pain, No Neck Pain Skin: No Rash Neurological: No Dizziness, No Focal Weakness, No Sensory Changes Psychological: No Symptoms Endocrine: No Symptoms Hematologic/Lymphatic: No Symptoms Immunological/Allergic: No Symptoms Medications & Allergies Home Medications: Home Medication List Levothyroxine Sodium 50 Mcg [Synthroid 50 Mcg] 50 mcg PO DAILY 07/28/16 [ History Confirmed 05/17/17] Prednisolone [Millipred] 5 mg PO DAILY 03/22/17 [History Confirmed 05/17/17] Alprazolam 0.25 mg [xanAX 0.25 MG] 0.25 mg PO Q12H PRN 05/17/17 [History Confirmed 05/17/17] Apixaban [Eliquis] 2.5 mg PO BID 05/17/17 [History Confirmed 05/17/17] Bumetanide 1 mg [Bumex 1 mg] 1 mg PO DAILY 05/17/17 [History Confirmed ] Diphenhydramine HCl 25 mg [Benadryl 25 mg Capsule] 25 mg PO Q6H PRN [History Confirmed 05/17/17] Hydrocodone/Acetaminophen [Hydrocodon-Acetaminophen 5-325] 1 each PO Q6H PRN [History Confirmed 05/17/17] Loperamide HCl 2 mg [Imodium 2 mg] 2 mg PO Q2H PRN 05/17/17 [History Confirmed 05/17/17] Loratadine 10 mg [Claritin 10 mg] 10 mg PO DAILY 05/17/17 [History Confirmed 05/17/17] Metoprolol Tartrate 25 mg [Lopressor 25MG Tab] 1 tab PO BID 05/17/17 [ History Confirmed 05/17/17] Ondansetron [Zofran Odt] 4 mg PO Q6H PRN 05/17/17 [History Confirmed 05/17/17] Potassium Chloride 10 Meq Tab* [Klor Con 10 MEQ] 10 meq PO BID 05/17/17 [ History Confirmed 05/17/17] Sertraline HCl [Zoloft] 100 mg PO HS 05/17/17 [History Confirmed 05/17/17] Allergies/Adverse Reactions: Allergies Allergy/AdvReac Type Severity Reaction Status Date / Time propoxyphene HCl Allergy Verified 05/17/17 08:14 [From Darsharathn] - Past Medical History Past Medical History: Yes Neurological History: No Pertinent History ENT History: No Pertinent History Cardiac History: Arrhythmia Respiratory History: No Pertinent History Endocrine Medical History: Hypothyroidism Musculoskelatal History: Fibromyalgia, Rheumatoid Arthritis GI Medical History: GERD History: No Pertinent History Pyscho-Social History: No Pertinent History Reproductive Disorders: No Pertinent History - Female History Are you now?: No - Past Surgical History Past Surgical History: Yes Neuro Surgical History: No Pertinent History Cardiac History: No Pertinent History Respiratory Surgery: No Pertinent History GI Surgical History: No Pertinent History Genitourinary Surgical Hx: No Pertinent History Musculskeletal Surgical Hx: Orthopedic Surgery Female Surgical History: Tubal Ligation Other Surgical History: RIGHT ANKLE SURGERY,BILATERAL HAND SURGERY, lymph node biopsy gall bladder removed - Social History Smoking Status: Never smoker Exposure to second hand smoke: No Alcohol: None Drug Use: none Significant Family History: no pertinent family hx - Physical Exam Vital Signs: Vital Signs - 24 hr Temp Pulse Resp BP Pulse Ox 05/17/17 10:54 86 20 99/58 97 05/17/17 09:40 90 20 82/70 97 05/17/17 08:50 105 H 16 90/50 97 05/17/17 07:56 98.0 F 104 H 18 104/88 97 General Appearance: mild distress, thin Neurologic Exam: alert, oriented x 3, cooperative Eye Exam: PERRL/EOMI, eyes nml inspection, No scleral icterus Ears, Nose, Throat Exam: dry mucous membranes Neck Exam: normal inspection, non-tender, supple, full range of motion Respiratory Exam: normal breath sounds, lungs clear, No respiratory distress Cardiovascular Exam: regular rate/rhythm, normal heart sounds, normal peripheral pulses, capillary refill 2-3 sec (cool bilateral feet), edema (1+ pedal bilateral) Gastrointestinal/Abdomen Exam: soft, normal bowel sounds, tenderness (mild diffuse worse in left lower quadrant), No distention, No mass, No guarding, No ecchymosis, No rebound Back Exam: normal inspection, normal range of motion, No CVA tenderness, No vertebral tenderness Extremity Exam: normal inspection, pedal edema Skin Exam: normal color, dry, No rash Lymphatic Exam: No adenopathy Results - Labs Lab/Micro Results: Lab Results-Last 24 Hours 05/17/17 Range/Units 11:20 Lactic Acid 3.5 H (0.4-2.0) Assessment/Plan (1) Clostridium difficile diarrhea Current Visit: Yes Status: Acute Assessment & Plan: with sepsis, lactic acidosis, bandemia and CYNTHIA tolerating po use po vanc for now add flagyl IV if deterioration received 1L bolus but still appears hemodynamically hypovolemic repeat lactic was up repeat LR bolus 1L continue IV fluids repeat lactic acid hold antihypertensive nephrotoxic drugs BP was improved with bolus and now decreased slightly more but appears secondary to inadequate fluid repletion at this point replace mag recheck continue ICU with her chronic steroid use from RA using hydrocortisone for stress dosing of adrenal suppression with heme positive stools and anemia hold anticoag use scds for ppx Code(s): A04.7 - ENTEROCOLITIS DUE TO CLOSTRIDIUM DIFFICILE (2) Sepsis Current Visit: Yes Status: Acute (3) Acute kidney injury Current Visit: Yes Status: Acute Assessment & Plan: normal renal function 9 days ago due to dehydration and sepsis from diarrhea c.diff rehydrate Code(s): N17.9 - ACUTE KIDNEY FAILURE, UNSPECIFIED (4) Hypomagnesemia Current Visit: Yes Status: Acute Code(s): E83.42 - HYPOMAGNESEMIA (5) Rheumatoid arthritis Current Visit: No Status: Chronic Code(s): M06.9 - RHEUMATOID ARTHRITIS, UNSPECIFIED (6) Chronic use of steroids Current Visit: Yes Status: Acute Code(s): JJX2244 - (7) Anemia Current Visit: Yes Status: Chronic Assessment & Plan: currently numbers are better due to hemoconcentration 9 days ago hgb was 2 points lower Code(s): D64.9 - ANEMIA, UNSPECIFIED
[2017-05-17] MEDS: solu-CORTEF 100MG IV SCH ×2 (12:38→17:51)
[2017-05-17 13:44] LABS: Lactic Acid 3.9 (0.4-2.0)
[2017-05-17] MEDS ORDERED: Lactated Ringers 500 ML IV ONE (13:52)
[2017-05-17] MEDS ORDERED: solu-CORTEF 100MG IV SCH (14:00)
[2017-05-17] MEDS: SYNTHROID 50 MCG PO SCH (14:40)
[2017-05-17] MEDS ORDERED: LEVOPHED 4 MG/4 ML 4,000 MCG in Dextrose 5%/Water IV Soln. 500 ML 500 ML IV PRN (14:54)
[2017-05-17] MEDS: xanAX 0.25 MG PO PRN (21:38)
[2017-05-17] MEDS: ELIQUIS PO SCH (21:38)
[2017-05-17] MEDS: ZOLOFT 50 MG TABLET PO SCH (21:39)
[2017-05-17] MEDS ORDERED: NON-FORMULARY ITEM (Sertraline Hcl [Zoloft] 100 MG) PO SCH (22:00)
[2017-05-18] MEDS: solu-CORTEF 100MG IV SCH ×4 (00:34→18:48)
[2017-05-18] MEDS: Dextrose 5%-Lr IV Solution 1000 ML 1,000 ML IV SCH (01:15)
[2017-05-18 05:53] LABS: Lactic Acid 3.1 (0.4-2.0)
[2017-05-18 05:57] LABS: Mean Cell Volume 92.3 fl (78-100); Mean Corpuscular Hemoglobin 30.4 pg (26-32); Mean Platelet Volume 11.4 fl (6-9.5); Platelet Count 211 K/mm3 (150-450); Red Blood Count 3.75 M/mm3 (4.1-5.4); Red Cell Distribution Width 17.1 % (11.5-14.0)
[2017-05-18 06:19] LABS: White Blood Count 54.1 K/mm3 (4.0-10.5)
[2017-05-18 06:36] LABS: ALBUMIN 1.1 g/dL (3.4-5.0); ANION GAP 15.3 MEQ/L (5-15); BILIRUBIN,TOTAL 0.3 mg/dL (0.2-1.0); Carbon Dioxide 18.1 mEq/L (21-32); Potassium 4.1 mEq/L (3.5-5.1); Total Protein 4.1 gm/dL (6.4-8.2)
[2017-05-18 07:09] LABS: BAND 28 % (0.0-2.0); Total Cells Counted 100
[2017-05-18 07:10] LABS: Platelet Estimate NORMAL (NORMAL); Polychromasia 1+
[2017-05-18] MEDS ORDERED: Lactated Ringers 500 ML IV ONE (07:30)
[2017-05-18] MEDS ORDERED: Magnesium 1 Gm / 100 Ml D5W*** 100 ML IV ONE (07:38)
--- NOTE | 2017-05-18 07:39 | PCM.NOTE ---
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 Objective Exam General Appearance: mild distress Neurologic Exam: alert, oriented x 3, cooperative Skin Exam: warm, dry, other (warm extremities with good cap refill <2sec) Eye Exam: pale conjunctivae, No scleral icterus Ears, Nose, Throat Exam: moist mucous membranes Neck Exam: non-tender, supple Respiratory Exam: normal breath sounds, lungs clear, No respiratory distress, No crackles/rales Cardiovascular Exam: normal heart sounds, tachycardia Gastrointestinal/Abdomen Exam: soft, normal bowel sounds, tenderness (very minimal tenderness on exam), No distention, No guarding, No ecchymosis, No rebound Extremity Exam: pedal edema (bilateral lower extremity pitting edema this was present even on presentation with her severe dehydration), No calf tenderness OBJECTIVE DATA Vital Signs: Vital Signs - 24 hr Temp Pulse Resp BP BP Pulse Ox 05/18/17 06:51 99.1 F 116 H 27 H 116/73 99 05/18/17 05:54 99.0 F 108 H 25 H 100/82 97 05/18/17 04:54 99.0 F 108 H 24 113/66 97 05/18/17 04:00 98.8 F 109 H 24 117/57 96 05/18/17 02:51 98.6 F 103 H 22 116/71 95 05/18/17 02:00 98.6 F 102 H 23 112/67 95 05/18/17 00:56 98.4 F 102 H 25 H 119/93 97 05/18/17 00:01 96 H 05/17/17 23:54 98.2 F 100 H 23 110/53 97 05/17/17 22:46 98.6 F 98 H 23 103/61 98 05/17/17 21:45 98.6 F 96 H 24 111/65 96 05/17/17 21:00 98.8 F 101 H 25 H 99/79 98 05/17/17 19:43 98.8 F 100 H 24 101/72 97 05/17/17 19:00 98.8 F 102 H 20 102/66 98 05/17/17 17:57 98.6 F 92 H 20 129/68 97 05/17/17 17:00 98.6 F 92 H 23 105/68 97 05/17/17 16:00 98.4 F 107 H 16 107/67 97 05/17/17 15:45 98.2 F 89 19 105/68 97 05/17/17 15:30 98.1 F 91 H 20 100/60 97 05/17/17 15:15 97.9 F 87 18 112/62 97 05/17/17 15:00 97.9 F 87 19 80/47 99/58 96 05/17/17 14:26 96.6 F 86 19 83/47 96 05/17/17 13:11 96.1 F 86 21 83/54 97 05/17/17 12:00 96.9 F 84 19 82/52 97 05/17/17 10:54 86 20 99/58 97 05/17/17 09:40 90 20 82/70 97 05/17/17 08:50 105 H 16 90/50 97 05/17/17 07:56 98.0 F 104 H 18 104/88 97 Pain Assessment - Last Documented Pain Intensity 0 Pain Scale Used [facility] Intake and Output: Intake & Output 05/15/17 05/16/17 05/17/17 05/18/17 11:59 11:59 11:59 11:59 Intake Total 5162 Output Total 1050 Balance 4112 Weight 57.153 kg 63.6 kg Lab Results: Accuchecks Date 05/17/17 Date 05/17/17 Time 16:10 Time 12:19 Accucheck Value: 207 Accucheck Value: 190 Lab Results-Last 24 Hours 05/17/17 05/17/17 05/18/17 Range/Units 11:20 13:27 05:50 WBC 54.1 H* (4.0-10.5) K/mm3 RBC 3.75 L (4.1-5.4) M/mm3 Hgb 11.4 L (12.0-16.0) gm/dl Hct 34.6 L (35-47) % MCV 92.3 (78-100) fl MCH 30.4 (26-32) pg MCHC 32.9 (32-36) g/dl RDW 17.1 H (11.5-14.0) % Plt Count 211 (150-450) K/mm3 MPV 11.4 H (6-9.5) fl Segmented Neutrophils 68 H (36.0-66.0) % Band Neutrophils 28 H (0.0-2.0) % Lymphocytes (Manual) 4 L (24-44) % Differential Comment ABNORMAL Platelet Estimate NORMAL (NORMAL) Polychromasia 1+ Sodium (136-145) mEq/L Potassium (3.5-5.1) mEq/L Chloride (98-107) mEq/L Carbon Dioxide (21-32) mEq/L Anion Gap (5-15) MEQ/L BUN (9-20) mg/dL Creatinine (0.55-1.30) mg/dl Estimated GFR ML/MIN Glucose (70-110) MG/DL Lactic Acid 3.5 H 3.9 H (0.4-2.0) Calcium (8.5-10.1) mg/dL Magnesium (1.8-2.4) mg/dL Total Bilirubin (0.2-1.0) mg/dL AST (15-37) U/L ALT (12-78) U/L Alkaline Phosphatase (46-116) U/L Serum Total Protein (6.4-8.2) gm/dL Albumin (3.4-5.0) g/dL 05/18/17 05/18/17 05/18/17 Range/Units 05:50 05:50 05:50 WBC (4.0-10.5) K/mm3 RBC (4.1-5.4) M/mm3 Hgb (12.0-16.0) gm/dl Hct (35-47) % MCV (78-100) fl MCH (26-32) pg MCHC (32-36) g/dl RDW (11.5-14.0) % Plt Count (150-450) K/mm3 MPV (6-9.5) fl Segmented Neutrophils (36.0-66.0) % Band Neutrophils (0.0-2.0) % Lymphocytes (Manual) (24-44) % Differential Comment Platelet Estimate (NORMAL) Polychromasia Sodium 131 L (136-145) mEq/L Potassium 4.1 (3.5-5.1) mEq/L Chloride 102 (98-107) mEq/L Carbon Dioxide 18.1 L (21-32) mEq/L Anion Gap 15.3 H (5-15) MEQ/L BUN 22 H (9-20) mg/dL Creatinine 1.02 (0.55-1.30) mg/dl Estimated GFR 56 ML/MIN Glucose 202 H (70-110) MG/DL Lactic Acid 3.1 H (0.4-2.0) Calcium 7.8 L (8.5-10.1) mg/dL Magnesium 1.7 L (1.8-2.4) mg/dL Total Bilirubin 0.30 (0.2-1.0) mg/dL AST 37 (15-37) U/L ALT 29 (12-78) U/L Alkaline Phosphatase 128 H (46-116) U/L Serum Total Protein 4.1 L (6.4-8.2) gm/dL Albumin 1.1 L (3.4-5.0) g/dL Multi-Disciplinary Progress Notes: Multi-Disciplinary Progress Notes 05/17/17 11:30 (created 05/17/17 14:10) Respiratory Note by Korin Prieto LACTIC ACID REPORTED TO DR. CARPENTER. REPEAT TO BE DONE IN TWO HOURS PER DR. CARPENTER ORDER Initialized on 05/17/17 14:10 - END OF NOTE Assessment/Plan (1) Clostridium difficile diarrhea Current Visit: Yes Status: Acute Assessment & Plan: with the worsening luekocytosis persistent stools bandemia add flagyle 500 q6h IV and keep vanc 125 po qid turn off levohped now LR bolus 500 mL then increase NS to 150 mL/h CYNTHIA improving Monitor I/O with duque on Eliquis for anticoag hgb stable it was only 8.8 9 days prior to admission she has hypoalbuminemia worsening her edema and appears to still have a degree of intravascular depletion at this time with the loss by stools overnight. continue on the hydrocortison IV with the sepsis and her history of chronic steroid use she has chronic immune suppression from her RA and was on multiple immune modulators prior to her hospilization for funal or pcp pneumonia that lasted several months and was on the ventillator for 2 weeks at [facility] earlier this summer Code(s): A04.7 - ENTEROCOLITIS DUE TO CLOSTRIDIUM DIFFICILE (2) Sepsis Current Visit: Yes Status: Acute (3) Acute kidney injury Current Visit: Yes Status: Acute Code(s): N17.9 - ACUTE KIDNEY FAILURE, UNSPECIFIED (4) Hypomagnesemia Current Visit: Yes Status: Acute Code(s): E83.42 - HYPOMAGNESEMIA (5) Rheumatoid arthritis Current Visit: No Status: Chronic Code(s): M06.9 - RHEUMATOID ARTHRITIS, UNSPECIFIED (6) Chronic use of steroids Current Visit: Yes Status: Acute Code(s): [id number] - (7) Anemia Current Visit: Yes Status: Chronic Code(s): D64.9 - ANEMIA, UNSPECIFIED
[2017-05-18] MEDS: FLAGYL 500 MG IVPB 500 MG/100 ML BAG IV SCH ×2 (08:15→18:48)
[2017-05-18] MEDS: ELIQUIS PO SCH (09:46)
[2017-05-18] MEDS: VANCOMYCIN 25MG/ML COMPOUND KIT PO SCH ×4 (09:48→21:33)
[2017-05-18] MEDS: NORCO 5/325 MG PO PRN ×2 (09:48→15:58)
[2017-05-18] MEDS: SYNTHROID 50 MCG PO SCH (09:48)
[2017-05-18] MEDS: Sodium Chloride 0.9% 1000 ML 1,000 ML IV SCH (11:26)
[2017-05-18] MEDS ORDERED: PROTONIX 40 MG IV IV SCH (11:45)
[2017-05-18] MEDS: Tums EX 750 MG PO PRN ×3 (12:25→18:47)
[2017-05-18] MEDS ORDERED: Sodium Chloride 0.9% 1000 ML 1,000 ML IV STA (16:53)
[2017-05-18 18:25] LABS: Mean Cell Volume 94.6 fl (78-100); Mean Corpuscular Hemoglobin 30.5 pg (26-32); Mean Platelet Volume 11.5 fl (6-9.5); Platelet Count 43 K/mm3 (150-450); Red Blood Count 3.67 M/mm3 (4.1-5.4); Red Cell Distribution Width 17.4 % (11.5-14.0)
[2017-05-18 18:27] LABS: A-aADO2 -44; ARTERIAL BLD GAS O2 SATURATION 99.8 % (95-100); ARTERIAL BLOOD GAS BASE EXCESS -8.1 (-2.0-2.0); ARTERIAL BLOOD GAS FIO2 21 %; ARTERIAL BLOOD GAS PO2 169 mmHg (75-100); ARTERIAL BLOOD GAS pH 7.45 (7.35-7.45); Lactic Acid 3.5 (0.4-2.0)
[2017-05-18 18:29] LABS: ALLEN TEST OK? YES
[2017-05-18] MEDS ORDERED: NovoLIN R SQ PRN (18:29)
[2017-05-18] MEDS ORDERED: AlbuRx 25% 50ML VIAL*** 50 ML IV ONE ×2 (18:36→22:08)
[2017-05-18] MEDS ORDERED: Sodium Chloride 0.9% 250 ML 250 ML IV ONE ×2 (18:37→22:08)
[2017-05-18 18:45] LABS: White Blood Count 58.6 K/mm3 (4.0-10.5)
[2017-05-18 18:48] LABS: ANION GAP 16.7 MEQ/L (5-15); Potassium 4.2 mEq/L (3.5-5.1)
[2017-05-18 19:05] LABS: Carbon Dioxide 14.5 mEq/L (21-32)
[2017-05-18] MEDS: AlbuRx 25% 50ML VIAL*** 50 ML in Sodium Chloride 0.9% 250 ML 200 ML IV SCH ×2 (19:10→22:09)
[2017-05-18 19:57] LABS: Total Cells Counted 100
[2017-05-18 19:59] LABS: Platelet Estimate DECREASED (NORMAL)
[2017-05-18 20:00] LABS: ANISOCYTOSIS 2+; Poikilocytosis 2+
[2017-05-18] MEDS: xanAX 0.25 MG PO PRN (21:33)
[2017-05-18] MEDS: ZOLOFT 50 MG TABLET PO SCH (21:33)
--- NOTE | 2017-05-18 23:13 | XRAY ---
Indication: Worsening abdominal pain. C. difficile infection. Multiple contiguous axial images obtained through the abdomen and pelvis without contrast as ordered. Comparison: None Lung bases demonstrates small bilateral effusions. Heart is not enlarged. Moderate sized hiatal hernia. Noncontrasted stomach and bowel loops appear nonobstructed. There is significantly diffuse colonic bowel wall thickening consistent with C. difficile colitis. Mild/moderate abdominal and pelvic free fluid. No free air. A Sanders catheter empties the urinary bladder. Previous cholecystectomy. 1 cm left lobe hepatic cyst. Remaining liver, pancreas, spleen, adrenal glands, kidneys, ureters, and uterus appear unremarkable for noncontrast exam. Mild aortoiliac calcifications without AAA. Osseous structures intact with mild degenerative changes throughout the spine. Impression: 1. Markedly diffuse colonic bowel wall thickening consistent with known C. difficile colitis. Moderate ascites may be reactive. No free air or obvious walled off fluid collection. 2. 1 cm hepatic cyst. 3. Small bibasilar pleural effusions. 4. Hiatal hernia. CTDI 12.26
[2017-05-19] MEDS: solu-CORTEF 100MG IV SCH ×2 (01:02→05:30)
[2017-05-19] MEDS: FLAGYL 500 MG IVPB 500 MG/100 ML BAG IV SCH ×2 (01:02→05:29)
[2017-05-19] MEDS: Sodium Chloride 0.9% 1000 ML 1,000 ML IV SCH (03:41)
[2017-05-19 05:40] LABS: A-aADO2 41; ARTERIAL BLD GAS O2 SATURATION 98.4 % (95-100); ARTERIAL BLOOD GAS BASE EXCESS -8.4 (-2.0-2.0); ARTERIAL BLOOD GAS FIO2 21 %; ARTERIAL BLOOD GAS PO2 77 mmHg (75-100); ARTERIAL BLOOD GAS pH 7.39 (7.35-7.45); Lactic Acid 2.9 (0.4-2.0)
[2017-05-19 06:21] LABS: Mean Cell Volume 94.3 fl (78-100); Mean Platelet Volume 11.5 fl (6-9.5); Platelet Count 179 K/mm3 (150-450); Red Blood Count 3.52 M/mm3 (4.1-5.4); Red Cell Distribution Width 17.3 % (11.5-14.0)
[2017-05-19 06:34] LABS: ALBUMIN 1.8 g/dL (3.4-5.0); ANION GAP 15.9 MEQ/L (5-15); BILIRUBIN,TOTAL 0.4 mg/dL (0.2-1.0); Carbon Dioxide 16.1 mEq/L (21-32); MAGNESIUM 1.9 mg/dL (1.8-2.4); Potassium 4.1 mEq/L (3.5-5.1); Total Protein 4.1 gm/dL (6.4-8.2)
[2017-05-19 06:39] LABS: Mean Corpuscular Hemoglobin 30.6 pg (26-32); White Blood Count 64.5 K/mm3 (4.0-10.5)
[2017-05-19 08:14] LABS: BAND 32 % (0.0-2.0); Total Cells Counted 100
[2017-05-19 08:15] LABS: Platelet Estimate NORMAL (NORMAL)
[2017-05-19 08:29] LABS: Lactic Acid 3.9 (0.4-2.0)
[2017-05-19] MEDS: SYNTHROID 50 MCG PO SCH (09:03)
[2017-05-19] MEDS: NORCO 5/325 MG PO PRN (09:04)
[2017-05-19] MEDS ORDERED: BUMEX 1 MG IV ONE (09:17)
[2017-05-19] MEDS: VANCOMYCIN 25MG/ML COMPOUND KIT PO SCH (09:45)
--- NOTE | 2017-05-19 10:10 | PCM.DS ---
Discharge Summary Date of Admission: 05/17/17 10:30 Admitting Physician: RAVEN CARPENTER Primary Care Provider: RAVEN CARPENTER Allergies Allergies propoxyphene HCl [From Darvon] Allergy (Verified 05/17/17 08:14) nausea Hospital Summary - Hospital Course Hospital Course: Ms Mancera is a 72 yo female pt of Dr. Dave Carpenter who was admitted 3d ago with C. difficile colitis. She was in rehab after a hospital stay at [place] for presumed PCP/fungal pneumonia. She is immunosuppressed, has RA and was until last month on a biologic immunosuppressant, previously on methotrexate, changed to presnidone at discharge. Last week her then she started having diarrhea. Initially she had some low blood pressures, was on 5mcg levophed overnight. She did require several fluid boluses, then her HR started increasing into the 120s and she now has ansarca. Her urine output was initially good, then yesterday started decreasing (overnight was 15.8 cc/hr). This morning her urine culture came back positive for VRE, intermediate resistance to linezolid, susceptible to Tigecycline. Her WBC initially were 30, 000, then increased to 50,000, now 64,500. At admission she did not have much abdominal pain and was tolerating po well now. She is still tolerating very small amounts of po but complaining of more abdominal pain. CT abd/pelvis yesterday showed bowel wall thickening consistent with C. difficile colitis, along with ascites and pleural effusions, otherwise negative. Pt is on flagyl 500mg IV q6h, vancomycin 125mg po QID, and hydrocortisone 50mg IV q6h. Her Eliquis has been held due to hemoccult positive stool. - Vitals & Intake/Output Vital Signs: Vital Signs Temperature 98.2 F 05/19/17 09:00 Pulse Rate 122 H 05/19/17 09:00 Respiratory Rate 30 H 05/19/17 09:00 Blood Pressure 112/75 05/19/17 09:00 O2 Sat by Pulse Oximetry 96 05/19/17 09:00 Intake & Output: Intake & Output 05/16/17 05/17/17 05/18/17 05/19/17 11:59 11:59 11:59 11:59 Intake Total 5162 4962 Output Total 1050 345 Balance 4112 4617 Weight 57.153 kg 63.6 kg 68 kg - Lab Result Diagrams: 05/19/17 05:25 05/19/17 05:25 Lab Results-Last 24 Hrs: Accuchecks Date 05/19/17 Date 05/19/17 Date 05/18/17 Time 05:30 Time 02:16 Time 22:32 Accucheck Value: 127 Accucheck Value: 194 Accucheck Value: 139 Lab Results-Last 24 Hours 05/18/17 05/18/17 05/18/17 Range/Units 18:20 18:20 18:20 WBC 58.6 H* (4.0-10.5) K/mm3 RBC 3.67 L (4.1-5.4) M/mm3 Hgb 11.2 L (12.0-16.0) gm/dl Hct 34.7 L (35-47) % MCV 94.6 (78-100) fl MCH 30.5 (26-32) pg MCHC 32.3 (32-36) g/dl RDW 17.4 H (11.5-14.0) % Plt Count 43 L (150-450) K/mm3 MPV 11.5 H (6-9.5) fl Segmented Neutrophils 92 H (36.0-66.0) % Band Neutrophils (0.0-2.0) % Lymphocytes (Manual) 5 L (24-44) % Monocytes (Manual) 3 (0.0-12.0) % Differential Comment Platelet Estimate DECREASED (NORMAL) Poikilocytosis 2+ Anisocytosis 2+ Puncture Site LEFT RADIAL pCO2 20 L* (35-45) mmHg pO2 169 H* (75-100) mmHg Base Excess -8.1 L (-2.0-2.0) O2 Saturation 93.1 L (94-100) g/dF ABG pH 7.45 (7.35-7.45) ABG HCO3 13.9 L* (22-28) ABG O2 Sat (Measured) 99.8 (95-100) % Esa Test YES A-a Gradient -44 a/A Ratio 1.35 Hemoglobin 11.6 Carboxyhemoglobin 5.2 (0.0-6.9) % THgb Methemoglobin 1.5 (1.4-1.5) % Potassium 4.2 3.9 (3.5-5.1) Temperature 37.0 C POC O2 Flow Rate 21 % Sodium 133 L (136-145) mEq/L Chloride 106 (98-107) mEq/L Carbon Dioxide 14.5 L* (21-32) mEq/L Anion Gap 16.7 H (5-15) MEQ/L BUN 23 H (9-20) mg/dL Creatinine 1.11 (0.55-1.30) mg/dl Estimated GFR 51 ML/MIN Glucose 146 H (70-110) MG/DL Lactic Acid 3.5 H (0.4-2.0) Calcium 7.1 L (8.5-10.1) mg/dL Magnesium (1.8-2.4) mg/dL Total Bilirubin (0.2-1.0) mg/dL AST (15-37) U/L ALT (12-78) U/L Alkaline Phosphatase (46-116) U/L Serum Total Protein (6.4-8.2) gm/dL Albumin (3.4-5.0) g/dL 05/19/17 05/19/17 05/19/17 Range/Units 05:25 05:25 05:25 WBC 64.5 H* (4.0-10.5) K/mm3 RBC 3.52 L (4.1-5.4) M/mm3 Hgb 10.8 L (12.0-16.0) gm/dl Hct 33.2 L (35-47) % MCV 94.3 (78-100) fl MCH 30.6 (26-32) pg MCHC 32.5 (32-36) g/dl RDW 17.3 H (11.5-14.0) % Plt Count 179 (150-450) K/mm3 MPV 11.5 H (6-9.5) fl Segmented Neutrophils 59 (36.0-66.0) % Band Neutrophils 32 H (0.0-2.0) % Lymphocytes (Manual) 5 L (24-44) % Monocytes (Manual) 4 (0.0-12.0) % Differential Comment NORMAL Platelet Estimate NORMAL (NORMAL) Poikilocytosis Anisocytosis Puncture Site Pending pCO2 25 L (35-45) mmHg pO2 77 (75-100) mmHg Base Excess -8.4 L (-2.0-2.0) O2 Saturation 94.8 (94-100) g/dF ABG pH 7.39 (7.35-7.45) ABG HCO3 15.1 L* (22-28) ABG O2 Sat (Measured) 98.4 (95-100) % Esa Test Pending A-a Gradient 41 a/A Ratio 0.65 Hemoglobin 11.2 Carboxyhemoglobin 3.0 (0.0-6.9) % THgb Methemoglobin 0.7 L (1.4-1.5) % Potassium 4.1 4.1 (3.5-5.1) Temperature 37.0 C POC O2 Flow Rate 21 % Sodium 135 L (136-145) mEq/L Chloride 107 (98-107) mEq/L Carbon Dioxide 16.1 L (21-32) mEq/L Anion Gap 15.9 H (5-15) MEQ/L BUN 20 (9-20) mg/dL Creatinine 1.04 (0.55-1.30) mg/dl Estimated GFR 55 ML/MIN Glucose 115 H (70-110) MG/DL Lactic Acid 2.9 H (0.4-2.0) Calcium 7.2 L (8.5-10.1) mg/dL Magnesium 1.9 (1.8-2.4) mg/dL Total Bilirubin 0.40 (0.2-1.0) mg/dL AST 39 H (15-37) U/L ALT 27 (12-78) U/L Alkaline Phosphatase 120 H (46-116) U/L Serum Total Protein 4.1 L (6.4-8.2) gm/dL Albumin 1.8 L (3.4-5.0) g/dL 05/19/17 Range/Units 07:40 WBC (4.0-10.5) K/mm3 RBC (4.1-5.4) M/mm3 Hgb (12.0-16.0) gm/dl Hct (35-47) % MCV (78-100) fl MCH (26-32) pg MCHC (32-36) g/dl RDW (11.5-14.0) % Plt Count (150-450) K/mm3 MPV (6-9.5) fl Segmented Neutrophils (36.0-66.0) % Band Neutrophils (0.0-2.0) % Lymphocytes (Manual) (24-44) % Monocytes (Manual) (0.0-12.0) % Differential Comment Platelet Estimate (NORMAL) Poikilocytosis Anisocytosis Puncture Site pCO2 (35-45) mmHg pO2 (75-100) mmHg Base Excess (-2.0-2.0) O2 Saturation (94-100) g/dF ABG pH (7.35-7.45) ABG HCO3 (22-28) ABG O2 Sat (Measured) (95-100) % Esa Test A-a Gradient a/A Ratio Hemoglobin Carboxyhemoglobin (0.0-6.9) % THgb Methemoglobin (1.4-1.5) % Potassium (3.5-5.1) Temperature C POC O2 Flow Rate % Sodium (136-145) mEq/L Chloride (98-107) mEq/L Carbon Dioxide (21-32) mEq/L Anion Gap (5-15) MEQ/L BUN (9-20) mg/dL Creatinine (0.55-1.30) mg/dl Estimated GFR ML/MIN Glucose (70-110) MG/DL Lactic Acid 3.9 H (0.4-2.0) Calcium (8.5-10.1) mg/dL Magnesium (1.8-2.4) mg/dL Total Bilirubin (0.2-1.0) mg/dL AST (15-37) U/L ALT (12-78) U/L Alkaline Phosphatase (46-116) U/L Serum Total Protein (6.4-8.2) gm/dL Albumin (3.4-5.0) g/dL Micro Results-Entire Visit: Accuchecks Date 05/19/17 Date 05/19/17 Date 05/18/17 Time 05:30 Time 02:16 Time 22:32 Accucheck Value: 127 Accucheck Value: 194 Accucheck Value: 139 - Radiology Exams Ordered Rad Exams-Entire Visit: Radiology Procedures Category Date Time Status ABDOMEN AND PELVIS W/0 CONTRAS [CT] Stat Exams 05/18/17 16:53 Completed Discharge Exam General Appearance: no apparent distress, thin Neurologic Exam: alert, oriented x 3, cooperative Skin Exam: normal color, warm, dry, other (feet are cool bilaterally) Eye Exam: eyes nml inspection Respiratory Exam: normal breath sounds, lungs clear, No crackles/rales, No rhonchi, No wheezing Cardiovascular Exam: normal heart sounds, tachycardia, No murmur, No irregular Gastrointestinal/Abdomen Exam: soft, tenderness (diffuse ttp), guarding (mild), other (hyperactive bowel sounds), No distention, No mass, No rebound Extremity Exam: swelling (LE 1+ pitting edema bilat) Back Exam: normal inspection Final Diagnosis/Problem List - Final Discharge Diagnosis/Problem (1) Sepsis Current Visit: Yes Status: Acute Assessment & Plan: With C. difficile colitis and now VRE positive culture. WBC have elevated from 30,000 at admission to 64,500, with 32 bands. She received quite a bit of fluid on admission and is still receiving fluids at 150cc an hour but appears to be losing fluids from her intravascular space. She is on IV flagly 500mg q6h and vancomycin 125mg po q6h. (2) VRE (vancomycin resistant enterococcus) culture positive Current Visit: Yes Status: Acute Assessment & Plan: New culture result this morning. She is being transferred to for ID consult and treatment; we do not carry the Tigecycline that this infection is susceptible to. (3) Oliguria Current Visit: Yes Status: Acute Assessment & Plan: Less than 30 cc/urine per hour out last night (15.8 cc/hr). I did try a small ( 1mg) dose of bumex in an effort to increase her urine output but even so would not improve the underlying sepsis and hypoalbuminemia. (4) Hypoalbuminemia Current Visit: Yes Status: Acute Assessment & Plan: Albumin did increase somewhat with 25mg infused last night; however still 1.8. (5) Paroxysmal a-fib Current Visit: Yes Status: Chronic Assessment & Plan: Treated with metoprolol, she sees Dr. Hayes, currently off her metoprolol. Has been in NSR here. (6) Acute kidney injury Current Visit: Yes Status: Resolved Assessment & Plan: Initially her BUN was 34 and Cr was 1.55 - this morning has improved to 20 and 1.04. (7) Chronic use of steroids Current Visit: Yes Status: Chronic Assessment & Plan: On hydrocortisone here, 50mg IV q6h. (8) Clostridium difficile diarrhea Current Visit: Yes Status: Acute Assessment & Plan: as above. On po vancomycin and IV flagyl. (9) Hypomagnesemia Current Visit: Yes Status: Resolved Assessment & Plan: 1.5 initially, 1.9 this morning, was repleted IV. (10) Hypotension Current Visit: No Status: Resolved Assessment & Plan: Currently off any pressors x 24 hours and maintaining her BP. (11) Anemia Current Visit: Yes Status: Chronic Assessment & Plan: stable here, Hgb around 11. (12) Rheumatoid arthritis Current Visit: No Status: Chronic - Discharge Disposition: DC TO [facility] Condition: Serious Prescriptions: No Action Levothyroxine Sodium 50 Mcg [Synthroid 50 Mcg] 50 mcg PO DAILY Prednisolone [Millipred] 5 mg PO DAILY Apixaban [Eliquis] 2.5 mg PO BID Metoprolol Tartrate 25 mg [Lopressor 25MG Tab] 1 tab PO BID Bumetanide 1 mg [Bumex 1 mg] 1 mg PO DAILY Alprazolam 0.25 mg [xanAX 0.25 MG] 0.25 mg PO Q12H PRN PRN Reason: Anxiety Potassium Chloride 10 Meq Tab* [Klor Con 10 MEQ] 10 meq PO BID Ondansetron [Zofran Odt] 4 mg PO Q6H PRN PRN Reason: Nausea Loperamide HCl 2 mg [Imodium 2 mg] 2 mg PO Q2H PRN PRN Reason: Diarrhea Hydrocodone/Acetaminophen [Hydrocodon-Acetaminophen 5-325] 1 each PO Q6H PRN PRN Reason: Pain Loratadine 10 mg [Claritin 10 mg] 10 mg PO DAILY Diphenhydramine HCl 25 mg [Benadryl 25 mg Capsule] 25 mg PO Q6H PRN PRN Reason: Allergies Sertraline HCl [Zoloft] 100 mg PO HS Follow up with: RAVEN CARPENTER [Primary Care Provider] - 1 Week
[2017-05-19 10:11] LABS: VBG BASE EXCESS -9.6 (-2.0-2.0); VBG CARBOXYHEMOGLOBIN 4.4 % T HGB (0.0-6.9); VBG HCO3- 13.9 meq/L (22-28); VBG HEMOGLOBIN 12.8; VBG O2 SATURATION 83.5 (95-100); VBG POTASSIUM 5.2 (3.5-5.1); VBG pH 7.37 (7.32-7.42)
[2017-05-19 10:49] VITALS: BP 110/73; PULSE 128; O2SAT 95
[2017-05-21 04:24] LABS: ALLEN TEST OK? YES
== END 2017-05-19 11:10 | disposition home or self-care (01) | DRG 872 ==
LOC: ED 07:55 → ICU 10:30
PROVIDERS: ADMIT Family Medicine; ATTEND Family Medicine
DX: A41.9 Sepsis, unspecified organism (principal); N17.9 Acute kidney failure, unspecified; A04.7 Enterocolitis due to Clostridium difficile; B95.2 Enterococcus as the cause of diseases classified elsewhere; Z16.21 Resistance to vancomycin; R34 Anuria and oliguria; E88.09 Other disorders of plasma-protein metabolism, not elsewhere classified; I48.0 Paroxysmal atrial fibrillation; Z79.01 Long term (current) use of anticoagulants; M06.9 Rheumatoid arthritis, unspecified; E03.9 Hypothyroidism, unspecified; E83.42 Hypomagnesemia; M79.7 Fibromyalgia; D64.9 Anemia, unspecified; K21.9 Gastro-esophageal reflux disease without esophagitis; Z79.899 Other long term (current) drug therapy; Z79.52 Long term (current) use of systemic steroids
CPT/HCPCS: 36415; 36600; 74022; 74176; 80048; 80053; 81000; 82272; 82375; 82803; 82805; 82962; 83605; 83735; 85025; 85610; 85730; 87040; 87045; 87046; 87077; 87086; 87186; 87335; 93005; 96360; 96361; 96365; 99284; 99285; J1720; J3475; P9047; P9612; A9270-GY

== ENCOUNTER 2017-06-02 11:47 | Observation (INO) | payer MEDICARE, OTHER ==
[2017-06-02] MEDS ORDERED: Sodium Chloride 0.9% 1000 ML 2,000 ML IV STA (12:15)
--- NOTE | 2017-06-02 12:20 | ERPHSYRPT ---
- History of Present Illness Time Seen by Provider: 06/02/17 12:18 Historian: EMS, [facility] records Exam Limitations: no limitations Patient Subjective Stated Complaint: PT BROUGHT TO ED PER EMS FROM [facility]- REPORTS PT HAS DX OF G-ROVA-ZUIUINE CONCERN FOR DEHYDRATION-PT HAD ORDER FOR IV BUT [facility] UNABLE TO OBTAIN IV-PT DENIES PAIN-PT REPORTS SHE FEELS TIRED-REPORTS BM X 1 TODAY-DENIES N/V Triage Nursing Assessment: PT PALE WARM ET [id number] ALL QUESTIONS CORRECTLY WITH NO DIFFICUTLY-PUPILS RESPONSIVE-UPPER BILATERAL EXTREMITIES NO DEFECITS-RESP EASY ET NONLABORED Physician History: 72-year-old female recently admitted at [facility], was discharged from [facility] after having C. difficile colitis. Since last 2-3 days. Patient has not been eating well and has decreased urine output. Nurse at [facility] noted that patient is very dry and her blood pressure was also found to be low 90s, so she sent patient to the emergency room for further evaluation. Timing/Duration: day(s) Severity of Pain-Max: none Severity of Pain-Current: none Associated Symptoms: diarrhea, weakness Allergies/Adverse Reactions: propoxyphene HCl [From Darvon] Allergy (Verified 06/02/17 12:03) nausea Home Medications: Levothyroxine Sodium 50 Mcg [Synthroid 50 Mcg] 50 mcg PO DAILY 07/28/16 [ History] Prednisolone [Millipred] 5 mg PO DAILY 03/22/17 [History] Alprazolam 0.25 mg [xanAX 0.25 MG] 0.25 mg PO Q12H PRN 05/17/17 [History] Apixaban [Eliquis] 2.5 mg PO BID 05/17/17 [History] Hydrocodone/Acetaminophen [Hydrocodon-Acetaminophen 5-325] 1 each PO Q6H PRN [History] Loperamide HCl 2 mg [Imodium 2 mg] 2 mg PO Q2H PRN 05/17/17 [History] Loratadine 10 mg [Claritin 10 mg] 10 mg PO DAILY 05/17/17 [History] Metoprolol Tartrate 25 mg [Lopressor 25MG Tab] 1 tab PO BID 05/17/17 [ History] Potassium Chloride 10 Meq Tab* [Klor Con 10 MEQ] 10 meq PO BID 05/17/17 [ History] Sertraline HCl [Zoloft] 100 mg PO HS 05/17/17 [History] Spironolactone 50 mg PO DAILY 06/02/17 [History] Torsemide 20 mg [Demadex 20 mg] 20 mg PO DAILY 06/02/17 [History] Vancomycin HCl [Vancocin HCl] 500 mg PO UD 06/02/17 [History] Hx Tetanus, Diphtheria Vaccination/Date Given: Yes Hx Influenza Vaccination/Date Given: Yes Hx Pneumococcal Vaccination/Date Given: Yes Immunizations Up to Date: Yes - Review of Systems Constitutional: Weakness, No Fever, No Chills Eyes: No Symptoms Ears, Nose, & Throat: No Symptoms Respiratory: No Cough, No Dyspnea Cardiac: No Chest Pain, No Edema, No Syncope Abdominal/Gastrointestinal: Diarrhea, No Abdominal Pain, No Nausea, No Vomiting Genitourinary Symptoms: No Dysuria Musculoskeletal: No Back Pain, No Neck Pain Skin: No Rash Neurological: No Dizziness, No Focal Weakness, No Sensory Changes Psychological: No Symptoms Endocrine: No Symptoms All Other Systems: Reviewed and Negative - Past Medical History Pertinent Past Medical History: Yes Neurological History: No Pertinent History ENT History: No Pertinent History Cardiac History: Arrhythmia Respiratory History: No Pertinent History Endocrine Medical History: Hypothyroidism Musculoskeletal History: Fibromyalgia, Rheumatoid Arthritis GI Medical History: GERD History: No Pertinent History Psycho-Social History: No Pertinent History Female Reproductive Disorders: No Pertinent History - Past Surgical History Past Surgical History: Yes Neuro Surgical History: No Pertinent History Cardiac: No Pertinent History Respiratory: No Pertinent History Gastrointestinal: No Pertinent History Genitourinary: No Pertinent History Musculoskeletal: Orthopedic Surgery Female Surgical History: Tubal Ligation Other Surgical History: RIGHT ANKLE SURGERY,BILATERAL HAND SURGERY, lymph node biopsy gall bladder removed - Social History Smoking Status: Never smoker Exposure to second hand smoke: No Alcohol Use: None Drug Use: none Patient Lives Alone: No Significant Family History: no pertinent family hx - Female History Hx Now: No - Nursing Vital Signs Nursing Vital Signs: Initial Vital Signs Temperature 98.1 F 06/02/17 11:56 Pulse Rate 78 06/02/17 11:56 Respiratory Rate 18 06/02/17 11:56 Blood Pressure 94/56 06/02/17 11:56 O2 Sat by Pulse Oximetry 98 06/02/17 11:56 Pain Scale Pain Intensity 0 - Physical Exam General Appearance: mild distress, alert Eye Exam: PERRL/EOMI, eyes nml inspection, pale conjunctivae Ears, Nose, Throat Exam: normal ENT inspection, pharynx normal, dry mucous membranes Neck Exam: normal inspection, non-tender, supple, full range of motion Respiratory Exam: normal breath sounds, lungs clear, No respiratory distress Cardiovascular Exam: regular rate/rhythm, normal heart sounds Gastrointestinal/Abdomen Exam: soft, No tenderness, No mass Back Exam: normal inspection, normal range of motion, No CVA tenderness, No vertebral tenderness Extremity Exam: normal inspection, normal range of motion, pelvis stable Neurologic Exam: alert, oriented x 3, cooperative, normal mood/affect, nml cerebellar function, sensation nml, No motor deficits Skin Exam: normal color, warm, dry SpO2: 98 Oxygen Delivery: Room Air - Course Nursing assessment & vital signs reviewed: Yes Ordered Tests: Active Orders 24 hr Category Date Time Status cath [Cath for Specimen-Straight] STAT Care 06/02/17 13:24 Active AMYLASE Stat Lab 06/02/17 12:39 Completed CBC W DIFF Stat Lab 06/02/17 12:39 Completed CMP Stat Lab 06/02/17 12:39 Completed CULTURE,URINE Stat Lab 06/02/17 13:20 Received LIPASE Stat Lab 06/02/17 12:39 Completed Lactic Acid Stat Lab 06/02/17 Completed Manual Differential NC Stat Lab 06/02/17 12:39 Completed UA W/ MICROSCOPIC Stat Lab 06/02/17 13:20 Completed Transfer Order Routine Transfer 06/02/17 Ordered Medication Summary Generic Name Dose Route Start Last Admin Trade Name Freq PRN Reason Stop Dose Admin Sodium Chloride 2,000 mls @ 999 mls/hr 06/02/17 12:15 06/02/17 12:24 Sodium Chloride 0.9% 1000 Ml IV 06/02/17 14:15 999 mls/hr .Q2H1M STA Administration Discontinued Medications Generic Name Dose Route Start Last Admin Trade Name Freq PRN Reason Stop Dose Admin Sodium Chloride Confirm 06/02/17 12:23 Sodium Chloride 0.9% 1000 Ml Administered 06/02/17 12:24 Dose 1,000 mls @ ud .ROUTE .[facility] ONE Sodium Chloride Confirm 06/02/17 13:13 Sodium Chloride 0.9% 1000 Ml Administered 06/02/17 13:14 Dose 1,000 mls @ ud .ROUTE .[facility] ONE Lab/Rad Data: Laboratory Result Diagrams 06/02/17 12:39 06/02/17 12:39 Laboratory Results 06/02/17 06/02/17 06/02/17 Range/Units Unknown 13:20 12:39 WBC (4.0-10.5) K/mm3 RBC (4.1-5.4) M/mm3 Hgb (12.0-16.0) gm/dl Hct (35-47) % MCV (78-100) fl MCH (26-32) pg MCHC (32-36) g/dl RDW (11.5-14.0) % Plt Count (150-450) K/mm3 MPV (6-9.5) fl Segmented Neutrophils (36.0-66.0) % Band Neutrophils (0.0-2.0) % Lymphocytes (Manual) (24-44) % Monocytes (Manual) (0.0-12.0) % Eosinophils (Manual) (0.00-3.0) % Metamyelocytes % Differential Comment Toxic Granulation Platelet Estimate (NORMAL) Hypochromasia Anisocytosis Sodium 138 (136-145) mEq/L Potassium 4.1 (3.5-5.1) mEq/L Chloride 102 (98-107) mEq/L Carbon Dioxide 28.4 (21-32) mEq/L Anion Gap 11.6 (5-15) MEQ/L BUN 17 (9-20) mg/dL Creatinine 0.88 (0.55-1.30) mg/dl Estimated GFR > 60 ML/MIN Glucose 93 (70-110) MG/DL Lactic Acid 1.8 (0.4-2.0) Calcium 8.0 L (8.5-10.1) mg/dL Total Bilirubin 0.70 (0.2-1.0) mg/dL AST 17 (15-37) U/L ALT 14 (12-78) U/L Alkaline Phosphatase 117 H (46-116) U/L Serum Total Protein 4.9 L (6.4-8.2) gm/dL Albumin 1.8 L (3.4-5.0) g/dL Amylase 94 (25-115) U/L Lipase 357 (73-393) U/L Ur Collection Type CATH Urine Color YELLOW (YELLOW) Urine Appearance CLEAR (CLEAR) Urine pH 8.0 (5-6) Ur Specific [place] 1.005 (1.005-1.025) Urine Protein NEGATIVE (Negative) Urine Ketones NEGATIVE (NEGATIVE) Urine Blood 5-10 (0-5) Thad/ul Urine Nitrite NEGATIVE (NEGATIVE) Urine Bilirubin NEGATIVE (NEGATIVE) Urine Urobilinogen NORMAL (0-1) mg/dL Ur Leukocyte Esterase TRACE (NEGATIVE) Urine Microscopic RBC 0-2 (0-2) /HPF Urine Microscopic WBC 2-5 (0-5) /HPF Ur Epithelial Cells RARE (FEW) /HPF Urine Bacteria MODERATE (NEGATIVE) /HPF Urine Glucose NEGATIVE (NEGATIVE) mg/dL Specimen Received 06/02/17 1320 06/02/17 Range/Units 12:39 WBC 4.3 (4.0-10.5) K/mm3 RBC 2.54 L (4.1-5.4) M/mm3 Hgb 7.8 L (12.0-16.0) gm/dl Hct 24.8 L (35-47) % MCV 97.6 (78-100) fl MCH 30.7 (26-32) pg MCHC 31.5 L (32-36) g/dl RDW 17.7 H (11.5-14.0) % Plt Count 139 L (150-450) K/mm3 MPV 11.4 H (6-9.5) fl Segmented Neutrophils 71 H (36.0-66.0) % Band Neutrophils 16 H (0.0-2.0) % Lymphocytes (Manual) 5 L (24-44) % Monocytes (Manual) 6 (0.0-12.0) % Eosinophils (Manual) 1 (0.00-3.0) % Metamyelocytes 1 % Differential Comment ABNORMAL Toxic Granulation 2+ Platelet Estimate DECREASED (NORMAL) Hypochromasia 1+ Anisocytosis 1+ Sodium (136-145) mEq/L Potassium (3.5-5.1) mEq/L Chloride (98-107) mEq/L Carbon Dioxide (21-32) mEq/L Anion Gap (5-15) MEQ/L BUN (9-20) mg/dL Creatinine (0.55-1.30) mg/dl Estimated GFR ML/MIN Glucose (70-110) MG/DL Lactic Acid (0.4-2.0) Calcium (8.5-10.1) mg/dL Total Bilirubin (0.2-1.0) mg/dL AST (15-37) U/L ALT (12-78) U/L Alkaline Phosphatase (46-116) U/L Serum Total Protein (6.4-8.2) gm/dL Albumin (3.4-5.0) g/dL Amylase (25-115) U/L Lipase (73-393) U/L Ur Collection Type Urine Color (YELLOW) Urine Appearance (CLEAR) Urine pH (5-6) Ur Specific [place] (1.005-1.025) Urine Protein (Negative) Urine Ketones (NEGATIVE) Urine Blood (0-5) Thad/ul Urine Nitrite (NEGATIVE) Urine Bilirubin (NEGATIVE) Urine Urobilinogen (0-1) mg/dL Ur Leukocyte Esterase (NEGATIVE) Urine Microscopic RBC (0-2) /HPF Urine Microscopic WBC (0-5) /HPF Ur Epithelial Cells (FEW) /HPF Urine Bacteria (NEGATIVE) /HPF Urine Glucose (NEGATIVE) mg/dL Specimen Received - Progress Progress: improved Discussed with : Wu Romero Will see patient in: hospital (observation) Counseled pt/family regarding: lab results, diagnosis, need for follow-up - Departure Time of Disposition: 14:01 Departure Disposition: Observation Clinical Impression: Diarrhea with dehydration, Clostridium difficile diarrhea Anemia Qualifiers: Anemia type: other cause Other causes of anemia: acute posthemorrhagic Qualified Code(s): D62 - Acute posthemorrhagic anemia Condition: Fair Critical Care Time: Yes Critical Care Time(excluding separately billable procedures): 30-74 minutes Referrals: RAVEN CARPENTER [Primary Care Provider] -
[2017-06-02] MEDS ORDERED: Sodium Chloride 0.9% 1000 ML 1,000 ML ONE ×2 (12:23→13:13)
[2017-06-02 12:48] LABS: Mean Cell Volume 97.6 fl (78-100); Mean Corpuscular Hemoglobin 30.7 pg (26-32); Mean Platelet Volume 11.4 fl (6-9.5); Platelet Count 139 K/mm3 (150-450); Red Blood Count 2.54 M/mm3 (4.1-5.4); Red Cell Distribution Width 17.7 % (11.5-14.0); White Blood Count 4.3 K/mm3 (4.0-10.5)
[2017-06-02 13:03] LABS: ALBUMIN 1.8 g/dL (3.4-5.0); ALKALINE PHOSPHATASE 117 U/L (46-116); ANION GAP 11.6 MEQ/L (5-15); BLOOD UREA NITROGEN 17 mg/dL (9-20); CHLORIDE 102 mEq/L (98-107); Carbon Dioxide 28.4 mEq/L (21-32); Glucose 93 MG/DL (70-110); LIPASE 357 U/L (73-393); Potassium 4.1 mEq/L (3.5-5.1); SGOT/AST 17 U/L (15-37); SODIUM 138 mEq/L (136-145); Total Protein 4.9 gm/dL (6.4-8.2)
[2017-06-02 13:17] LABS: BAND 16 % (0.0-2.0); Eosinophil 1 % (0.00-3.0); Metamyelocyte 1 %; Total Cells Counted 100
[2017-06-02 13:18] LABS: ANISOCYTOSIS 1+; Hypochromia 1+; Platelet Estimate DECREASED (NORMAL); SGPT/ALT 14 U/L (12-78); Toxic Granulation 2+
[2017-06-02 13:34] LABS: Collection Type CATH; Glucose NEGATIVE (NEGATIVE); Leukocyte Esterase TRACE (NEGATIVE)
[2017-06-02 13:35] LABS: Bilirubin NEGATIVE (NEGATIVE); COMPLETE URINE MICROSCOPIC? YES
[2017-06-02 13:39] LABS: ADD URINE CULTURE? YES (NO); Bacteria MODERATE /HPF (NEGATIVE); Epithelial Cells RARE /HPF (FEW)
[2017-06-02] MEDS ORDERED: xanAX 0.25 MG PO PRN (16:07)
[2017-06-02] MEDS ORDERED: NORCO 5/325 MG PO PRN (16:07)
[2017-06-02] MEDS ORDERED: ZOFRAN ODT 4 MG PO PRN (16:07)
[2017-06-02] MEDS ORDERED: TYLENOL 325 MG PO PRN (16:07)
[2017-06-02] MEDS: VANCOMYCIN 25MG/ML COMPOUND KIT PO SCH ×2 (17:04→21:45)
[2017-06-02] MEDS: Nystatin SUSPENSION 60 ML PO SCH ×2 (17:06→21:45)
[2017-06-02] MEDS: Sodium Chloride 0.9% 1000 ML 1,000 ML IV SCH (17:29)
[2017-06-02] MEDS: ELIQUIS PO SCH (21:44)
[2017-06-02] MEDS ORDERED: ZOLOFT 50 MG TABLET PO SCH (22:00)
[2017-06-03] MEDS: Sodium Chloride 0.9% 1000 ML 1,000 ML IV SCH (03:02)
[2017-06-03 05:44] LABS: Mean Cell Volume 97.2 fl (78-100); Mean Platelet Volume 11.6 fl (6-9.5); Platelet Count 128 K/mm3 (150-450); Red Blood Count 2.52 M/mm3 (4.1-5.4); Red Cell Distribution Width 17.6 % (11.5-14.0); White Blood Count 2.8 K/mm3 (4.0-10.5)
[2017-06-03 05:48] LABS: Mean Corpuscular Hemoglobin 30.5 pg (26-32)
[2017-06-03 06:02] LABS: ANION GAP 11.5 MEQ/L (5-15); BLOOD UREA NITROGEN 14 mg/dL (9-20); CHLORIDE 104 mEq/L (98-107); Carbon Dioxide 27.5 mEq/L (21-32); Glucose 81 MG/DL (70-110); Potassium 3.2 mEq/L (3.5-5.1); SODIUM 140 mEq/L (136-145)
[2017-06-03 09:42] LABS: BAND 11 % (0.0-2.0); Total Cells Counted 100
[2017-06-03 09:53] LABS: ANISOCYTOSIS 1+; Platelet Estimate NORMAL (NORMAL); Poikilocytosis 1+; Spherocyte 1+
[2017-06-03] MEDS ORDERED: THERAGRAN MULTIVITAMIN PO SCH (10:00)
[2017-06-03] MEDS ORDERED: Pediapred SOLUTION 5 MG/5 ML PO SCH (10:00)
[2017-06-03] MEDS ORDERED: DELTASONE 5 MG PO SCH (10:00)
[2017-06-03] MEDS ORDERED: Megace 40 MG/ML PO SCH (10:00)
[2017-06-03] MEDS ORDERED: CLARITIN 10 MG PO SCH (10:00)
[2017-06-03] MEDS ORDERED: Protonix 40MG Tablet PO SCH (10:00)
[2017-06-03] MEDS ORDERED: SYNTHROID 75 MCG PO SCH (10:00)
[2017-06-03] MEDS ORDERED: Diflucan 100 MG PO SCH (10:00)
[2017-06-03] MEDS: ELIQUIS PO SCH (10:47)
--- NOTE | 2017-06-03 10:47 | PCM.DCORD ---
- Discharge Discharge Date: 06/03/17 Disposition: DC TO [facility] Condition: Fair Prescriptions: No Action Prednisolone [Millipred] 5 mg PO DAILY Apixaban [Eliquis] 2.5 mg PO BID Metoprolol Tartrate 25 mg [Lopressor 25MG Tab] 1 tab PO BID Alprazolam 0.25 mg [xanAX 0.25 MG] 0.25 mg PO Q12H PRN PRN Reason: Anxiety Potassium Chloride 10 Meq Tab* [Klor Con 10 MEQ] 10 meq PO BID Hydrocodone/Acetaminophen [Hydrocodon-Acetaminophen 5-325] 1 each PO Q12H PRN PRN Reason: Pain Loratadine 10 mg [Claritin 10 mg] 10 mg PO DAILY Sertraline HCl [Zoloft] 100 mg PO HS Spironolactone 50 mg PO DAILY Vancomycin HCl [Vancocin HCl] 500 mg PO QID Torsemide 20 mg [Demadex 20 mg] 20 mg PO BID Nystatin [Nystatin Susp] 5 ml PO QID Multivitamin [Multiple Vitamins] 1 each PO DAILY Metolazone 2.5 mg [Zaroxolyn 2.5 MG] 2.5 mg PO DAILY Megestrol Acetate 400 mg PO DAILY PANTOPRAZOLE 40 mg Tablet [Protonix 40MG Tablet] 40 mg PO DAILY Ondansetron [Ondansetron Odt] 4 mg PO Q6H PRN PRN Reason: Nausea Levothyroxine Sodium 75 Mcg [Synthroid 75 Mcg] 75 mcg PO DAILY Fluconazole 100 mg [Diflucan 100 MG] 100 mg PO DAILY Acetaminophen 325 mg [Tylenol 325 mg] 650 mg PO Q4H PRN PRN Reason: Pain And/Or Fever Follow up with: RAVEN CARPENTER [Primary Care Provider] -
[2017-06-03] MEDS: Nystatin SUSPENSION 60 ML PO SCH (10:49)
[2017-06-03] MEDS: VANCOMYCIN 25MG/ML COMPOUND KIT PO SCH (10:51)
[2017-06-03 10:52] VITALS: BP 110/55; PULSE 113; O2SAT 97
[2017-06-03] MEDS ORDERED: Klor Con 10 MEQ PO ONE (10:54)
--- NOTE | 2017-06-04 11:05 | SSS ---
DISCHARGE DIAGNOSES: 1) HYPOTENSION DUE TO DEHYDRATION. 2) ANEMIA. HISTORY OF PRESENT ILLNESS: This is a 72 year old patient of Dr. Rashad Rabago with a complicated past medical history. Her daughter is at the bedside. They report she has had sepsis twice recently and she has been here at [facility] and then was transferred to 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 The patient was getting quite a bit of diuretics at the assisted. She was receiving metolazone, Torsemide and Spironolactone. The assisted had called me with systolic blood pressure in the 80's and the concern that her weight had dropped. They did record that they had given her the metolazone even though it said to hold and to only give if she gained two pounds but they gave it the morning that they had called me, according to their record. They tried to start an IV at the assisted but they were unable to place this so she was brought to the emergency department. The emergency room doctor gave her 3 liters of fluid there and she has been getting fluids overnight. It looks like she has an appointment with Dr. Nino, her software qa system specialist, tomorrow. Her old chart shows that she was on bumetanide in the past and not the other two diuretics. Her daughter reported that they had to give her a lot of fluids for the sepsis. She became quite full when they started all of these and they worked well but then she continued to receive them even the order for one of them was not to give if her weight had not increased. PAST MEDICAL HISTORY: VRE in her urine. Clostridium difficile colitis. History of fungal pneumonia. Rheumatoid arthritis. PAST SURGICAL HISTORY: Right ankle surgery. Bilateral hand surgery. Lymph node biopsy. Cholecystectomy. Tubal ligation. SOCIAL HISTORY: She is currently at [facility] for rehab. No tobacco or alcohol use. FAMILY HISTORY: Noncontributory. PHYSICAL EXAMINATION: VITAL SIGNS: Temperature current 98F, temperature max 98.1F, heart rate 78 to 113, respiratory rate 16 to 24, blood pressure 94 to 112 over 45 to 66 currently 110/55. Oxygen saturation 97 to 98% on room air. GENERAL: The patient is a pleasant lady lying in bed in no acute distress. Her daughter is at the bedside. CVS: She has a regular rate and rhythm. No murmurs, gallops or rubs. CHEST: Clear to auscultation bilaterally. No crackles or wheezes. ABDOMEN: Soft, nontender, nondistended with normal bowel sounds. EXTREMITIES: She has +2 edema to her mid shins bilaterally. No clubbing or cyanosis. LABORATORY DATA AND TESTS: On admission her white blood cell count was 4.3, repeat was 2.8, hemoglobin 8.2 and repeat 7.7. PLT count 139,000 and repeat 128,000. Potassium 3.2 this a.m. UA was negative. Clostridium difficile was negative. She did not have stool for occult blood although the emergency room doctor said he was worried about this. ASSESSMENT AND PLAN: 1) HYPOTENSION DUE TO DEHYDRATION: The patient was given sufficient fluids in the emergency room and her blood pressure was improved. She would like to go back to [facility]. Her blood pressure is stable. I am going to hold all of her diuretic as well as potassium. She will follow up with her software qa system specialist tomorrow and Dr. Rashad Rabago at [facility]. 2) ANEMIA: This is stable at this time most likely due to chronic disease. The family is worried that she is anemic. She does not meet the threshold for transfusion. Her hemoglobin has been stable over the past 24 hours. DISPOSITION: The patient will be discharged to [facility] to resume all her home medications except for metolazone, Torsemide, Spironolactone, potassium chloride.
== END 2017-06-03 13:20 | disposition home or self-care (01) ==
LOC: ED 11:47 → MED SURG 14:25
PROVIDERS: ADMIT Internal Medicine; ATTEND Family Medicine
DX: E86.0 Dehydration (principal); I95.9 Hypotension, unspecified; D64.9 Anemia, unspecified; Z79.899 Other long term (current) drug therapy
CPT/HCPCS: 93268; 99285; 82150; 81000; 85014; 85018; 36415 ×2; 83690; 87186; 87493 ×2; 85025 ×2; 87077; 80048; 80053; 87086; 83605; P9612; G0378; A9270-GY; J7506

== ENCOUNTER 2017-09-22 10:58 | Inpatient (IN) | payer MEDICARE, OTHER ==
[2017-09-22] MEDS ORDERED: Sodium Chloride 0.9% 1000 ML 1,000 ML IV SCH (11:30)
[2017-09-22 11:47] LABS: VBG BASE EXCESS -3.9 (-2.0-2.0); VBG CARBOXYHEMOGLOBIN 2.4 % T HGB (0.0-6.9); VBG HCO3- 22.2 meq/L (22-28); VBG HEMOGLOBIN 14.4; VBG O2 SATURATION 59.8 (95-100); VBG pH 7.32 (7.32-7.42)
--- NOTE | 2017-09-22 11:55 | ERPHSYRPT ---
- History of Present Illness Time Seen by Provider: 09/22/17 11:13 Source: patient, halfway records Patient Subjective Stated Complaint: Margot rn called and stated "her calcium was 13.9 this morning and she has been fighting high calcium for 2 moths.". Pt states "My stomach is bothering me a little bit." Triage Nursing Assessment: Pt alert and oriented X 3, skin pwd. Pt needs quite a bit of assistance to stand, weak bilat, able to speak in clear full sentences. pt has colostomy, and wound that is bandaged and being treated on her right leg. Physician History: CC: malaise Hx: 72 y/o patient of Dr White from [facility]. She has hx of hypercalcemia which has been investigated and treated at [facility]. She has seen Dr Nino. Pt is poor historian. She feels tired and malaise. Family reported she was mildly confused yesterday. She complains of upset belly. No vomiting. Normal urination. Allergies/Adverse Reactions: propoxyphene HCl [From Darvon] Allergy (Verified 06/02/17 12:03) nausea Home Medications: Alprazolam 0.25 mg [xanAX 0.25 MG] 0.25 mg PO Q12H PRN 05/17/17 [History] Metoprolol Tartrate 25 mg [Lopressor 25MG Tab] 1 tab PO BID 05/17/17 [ History] Sertraline HCl [Zoloft] 100 mg PO HS 05/17/17 [History] Acetaminophen 325 mg [Tylenol 325 mg] 650 mg PO Q4H PRN 06/02/17 [History] Levothyroxine Sodium 75 Mcg [Synthroid 75 Mcg] 75 mcg PO DAILY 06/02/17 [ History] Ondansetron [Ondansetron Odt] 4 mg PO Q6H PRN 06/02/17 [History] Apixaban [Eliquis] 2.5 mg PO BID 09/22/17 [History] Famotidine [Famotidine] 20 mg PO BID 09/22/17 [History] Gabapentin [Gabapentin] 100 mg PO HS 09/22/17 [History] Magnesium Oxide 400 mg [Mag-Ox 400] 400 mg PO BID 09/22/17 [History] Potassium Chloride [Klor-Con M20] 20 meq PO DAILY 09/22/17 [History] Hx Tetanus, Diphtheria Vaccination/Date Given: Yes Hx Influenza Vaccination/Date Given: Yes Hx Pneumococcal Vaccination/Date Given: No Immunizations Up to Date: Yes - Review of Systems Constitutional: Malaise, Weakness, No Fever, No Chills Eyes: No Symptoms Ears, Nose, & Throat: No Symptoms Respiratory: No Cough, No Dyspnea Cardiac: No Chest Pain Abdominal/Gastrointestinal: Abdominal Pain, Nausea, No Vomiting, No Diarrhea Genitourinary Symptoms: No Dysuria Skin: No Rash Neurological: No Headache All Other Systems: Reviewed and Negative - Past Medical History Pertinent Past Medical History: Yes Neurological History: No Pertinent History ENT History: No Pertinent History Cardiac History: Arrhythmia Respiratory History: No Pertinent History Endocrine Medical History: Hypothyroidism Musculoskeletal History: Fibromyalgia, Rheumatoid Arthritis GI Medical History: GERD History: No Pertinent History Psycho-Social History: No Pertinent History Female Reproductive Disorders: No Pertinent History Other Medical History: Afib, pneumonia - Past Surgical History Past Surgical History: Yes Neuro Surgical History: No Pertinent History Cardiac: No Pertinent History Respiratory: No Pertinent History Gastrointestinal: Cholecystectomy Genitourinary: No Pertinent History Musculoskeletal: Orthopedic Surgery Female Surgical History: Tubal Ligation Other Surgical History: RIGHT ANKLE SURGERY,BILATERAL HAND SURGERY, lymph node biopsy gall bladder removed - Social History Smoking Status: Never smoker Exposure to second hand smoke: Yes Alcohol Use: None Drug Use: none Patient Lives Alone: No Significant Family History: no pertinent family hx - Female History Hx Last Menstrual Period: none Hx Now: No - Nursing Vital Signs Nursing Vital Signs: Initial Vital Signs Temperature 97.8 F 09/22/17 11:23 Pulse Rate 72 09/22/17 11:23 Respiratory Rate 16 09/22/17 11:23 Blood Pressure 156/71 09/22/17 11:23 O2 Sat by Pulse Oximetry 99 09/22/17 11:23 Pain Scale Pain Intensity 2 - Physical Exam General Appearance: alert Eye Exam: PERRL/EOMI, pale conjunctivae Ears, Nose, Throat Exam: dry mucous membranes Neck Exam: normal inspection, non-tender, supple Respiratory Exam: normal breath sounds Cardiovascular Exam: regular rate/rhythm Gastrointestinal/Abdomen Exam: soft, No tenderness, No distention Extremity Exam: normal inspection, normal range of motion Neurologic Exam: alert, oriented x 3, cooperative, sensation nml, No motor deficits Skin Exam: warm, dry, pale SpO2 Interpretation: normal SpO2: 99 Oxygen Delivery: Room Air - Course Nursing assessment & vital signs reviewed: Yes Ordered Tests: Active Orders 24 hr Category Date Time Status Cath for Specimen-Straight STAT Care 09/22/17 11:28 Active EKG-ER Only STAT Care 09/22/17 11:28 Active Sanders [Catheter-[place] Sanders] STAT Care 09/22/17 11:47 Active IV Insertion STAT Care 09/22/17 11:28 Active BMP Stat Lab 09/22/17 12:00 Completed CBC W DIFF Stat Lab 09/22/17 12:00 Completed Hepatic Function Panel Stat Lab 09/22/17 12:00 Completed MAGNESIUM Stat Lab 09/22/17 12:00 Completed UA W/RFX UR CULTURE Stat Lab 09/22/17 11:28 Ordered VENOUS BLOOD GAS Urgent Lab 09/22/17 11:34 Completed Medication Summary Generic Name Dose Route Start Last Admin Trade Name Kareen PRN Reason Stop Dose Admin Sodium Chloride 1,000 mls @ 100 mls/hr 09/22/17 11:30 09/22/17 12:39 Sodium Chloride 0.9% 1000 Ml IV 10/22/17 11:29 100 mls/hr .Q10H DARRELL Administration Lab/Rad Data: Laboratory Result Diagrams 09/22/17 12:00 09/22/17 12:00 Laboratory Results 09/22/17 09/22/17 09/22/17 Range/Units 12:00 12:00 12:00 WBC 6.9 (4.0-10.5) K/mm3 RBC 4.30 (4.1-5.4) M/mm3 Hgb 13.1 (12.0-16.0) gm/dl Hct 41.4 (35-47) % MCV 96.3 (78-100) fl MCH 30.5 (26-32) pg MCHC 31.6 L (32-36) g/dl RDW 14.4 H (11.5-14.0) % Plt Count 180 (150-450) K/mm3 MPV 11.5 H (6-9.5) fl Gran % 56.9 (36.0-66.0) % Lymphocytes % 26.0 (24.0-44.0) % Monocytes % 14.8 H (0.0-12.0) % Eosinophils % 1.7 (0.00-5.0) % Basophils % 0.6 (0.0-0.4) % Basophils # 0.04 (0-0.4) VBG pH (7.32-7.42) VBG pCO2 at Pat Temp (42-55) mm/Hg VBG pO2 at Pat Temp (25-40) mm/Hg VBG HCO3 (22-28) meq/L VBG O2 Sat (Gus) (95-100) VBG Base Excess (-2.0-2.0) VBG Hemoglobin VBG Carboxyhemoglobin (0.0-6.9) % T HGB POC Potassium (3.5-5.1) Sodium 134 L (136-145) mEq/L Potassium 5.0 (3.5-5.1) mEq/L Chloride 102 (98-107) mEq/L Carbon Dioxide 21.4 (21-32) mEq/L Anion Gap 15.4 H (5-15) MEQ/L BUN 36 H (9-20) mg/dL Creatinine 2.02 H (0.55-1.30) mg/dl Estimated GFR 26 ML/MIN Glucose 85 (70-110) MG/DL Calcium 14.3 H* (8.5-10.1) mg/dL Magnesium 2.1 (1.8-2.4) mg/dL Total Bilirubin 0.30 (0.2-1.0) mg/dL Direct Bilirubin 0.12 (0.0-0.2) MG/DL AST 40 H (15-37) U/L ALT 19 (12-78) U/L Alkaline Phosphatase 153 H (46-116) U/L Serum Total Protein 7.7 (6.4-8.2) gm/dL Albumin 2.6 L (3.4-5.0) g/dL 09/22/17 Range/Units 11:34 WBC (4.0-10.5) K/mm3 RBC (4.1-5.4) M/mm3 Hgb (12.0-16.0) gm/dl Hct (35-47) % MCV (78-100) fl MCH (26-32) pg MCHC (32-36) g/dl RDW (11.5-14.0) % Plt Count (150-450) K/mm3 MPV (6-9.5) fl Gran % (36.0-66.0) % Lymphocytes % (24.0-44.0) % Monocytes % (0.0-12.0) % Eosinophils % (0.00-5.0) % Basophils % (0.0-0.4) % Basophils # (0-0.4) VBG pH 7.32 (7.32-7.42) VBG pCO2 at Pat Temp 43 (42-55) mm/Hg VBG pO2 at Pat Temp 27 (25-40) mm/Hg VBG HCO3 22.2 (22-28) meq/L VBG O2 Sat (Gus) 59.8 L (95-100) VBG Base Excess -3.9 L (-2.0-2.0) VBG Hemoglobin 14.4 VBG Carboxyhemoglobin 2.4 (0.0-6.9) % T HGB POC Potassium 5.0 (3.5-5.1) Sodium (136-145) mEq/L Potassium (3.5-5.1) mEq/L Chloride (98-107) mEq/L Carbon Dioxide (21-32) mEq/L Anion Gap (5-15) MEQ/L BUN (9-20) mg/dL Creatinine (0.55-1.30) mg/dl Estimated GFR ML/MIN Glucose (70-110) MG/DL Calcium (8.5-10.1) mg/dL Magnesium (1.8-2.4) mg/dL Total Bilirubin (0.2-1.0) mg/dL Direct Bilirubin (0.0-0.2) MG/DL AST (15-37) U/L ALT (12-78) U/L Alkaline Phosphatase (46-116) U/L Serum Total Protein (6.4-8.2) gm/dL Albumin (3.4-5.0) g/dL - Progress Progress Note: 09/22/17 11:55 Will redraw labs. Her AM creat was high. She will benefit from NS infusion. 09/22/17 12:57 Attempted 2 sono guided IV without success. 22ga PIV placed right wrist. IV NS infusing. Son at bedside. Discussed lab results. Called Dr Washburn and will admit to IP Tele for IV hydration and further care. Discussed with .: Wu Will see patient in: hospital (full admit) Counseled pt/family regarding: lab results, diagnosis, need for follow-up, rad results - Departure Time of Disposition: 12:58 Departure Disposition: In-patient Admission Clinical Impression: Hypercalcemia, Dehydration, Azotemia Condition: Fair Critical Care Time: No Referrals: TIFFANY JARAMILLO [Primary Care Provider] -
[2017-09-22 12:11] LABS: BASOPHIL % 0.6 % (0.0-0.4); Basophil (Absolute #) 0.04 (0-0.4); Eosinophil % 1.7 % (0.00-5.0); Eosinophil (Absolute #) 0.12 (0-0.5); Granulocyte Absolute (ANC) 3.91 (1.4-6.9); Granulocytes % 56.9 % (36.0-66.0); Hematocrit 41.4 % (35-47); Hemoglobin 13.1 gm/dl (12.0-16.0); Lymphocyte (Absolute #) 1.79 (1.0-4.6); Mean Cell Volume 96.3 fl (78-100); Mean Corpuscular Hemoglobin 30.5 pg (26-32); Mean Corpuscular Hgb Concent. 31.6 g/dl (32-36); Mean Platelet Volume 11.5 fl (6-9.5); Monocyte (Absolute #) 1.02 (0.0-1.3); Monocytes % 14.8 % (0.0-12.0); Platelet Count 180 K/mm3 (150-450); Red Cell Distribution Width 14.4 % (11.5-14.0); White Blood Count 6.9 K/mm3 (4.0-10.5)
[2017-09-22 12:22] LABS: ALBUMIN 2.6 g/dL (3.4-5.0); ANION GAP 15.4 MEQ/L (5-15); BILIRUBIN,TOTAL 0.3 mg/dL (0.2-1.0); Carbon Dioxide 21.4 mEq/L (21-32); Creatinine 1 2.02 mg/dl (0.55-1.30); Direct Bilirubin 0.12 MG/DL (0.0-0.2); Total Protein 7.7 gm/dL (6.4-8.2)
[2017-09-22 12:23] LABS: Calcium 14.3 mg/dL (8.5-10.1)
[2017-09-22] MEDS ORDERED: TYLENOL 325 MG PO PRN ×2 (13:36→16:29)
[2017-09-22] MEDS ORDERED: NON-FORMULARY ITEM (Ondansetron 4 MG) PO PRN (16:29)
[2017-09-22 16:42] LABS: Appearance HAZY (CLEAR); Bilirubin NEGATIVE (NEGATIVE); Glucose NEGATIVE (NEGATIVE); Ketones NEGATIVE (NEGATIVE); Leukocyte Esterase 2+ (NEGATIVE); Nitrite NEGATIVE (NEGATIVE); Protein,Urine Dip 300 (Negative); Urobilinogen NORMAL mg/dL (0-1)
[2017-09-22 16:43] LABS: Bacteria MANY /HPF (NEGATIVE); Blood 250 Ery/ul (0-5); WBC >100 /HPF (0-5)
[2017-09-22] MEDS: Sodium Chloride 0.9% 1000 ML 1,000 ML IV SCH (18:59)
[2017-09-22] MEDS: NORCO 5/325 MG PO PRN (20:11)
[2017-09-22] MEDS: Lopressor 25MG Tab PO SCH (22:19)
[2017-09-22] MEDS: Pepcid 20 MG PO SCH (22:19)
[2017-09-22] MEDS: MAG-OX 400 PO SCH (22:19)
[2017-09-22] MEDS: Neurontin 100 MG PO SCH (22:19)
[2017-09-22] MEDS: ELIQUIS PO SCH (22:20)
[2017-09-23] MEDS: Sodium Chloride 0.9% 1000 ML 1,000 ML IV SCH ×3 (01:46→17:42)
[2017-09-23] MEDS: Pepcid 20 MG PO SCH ×2 (09:38→21:36)
[2017-09-23] MEDS: SYNTHROID 75 MCG PO SCH (09:38)
[2017-09-23] MEDS: Lopressor 25MG Tab PO SCH ×2 (09:38→21:36)
[2017-09-23] MEDS: MAG-OX 400 PO SCH ×2 (09:38→21:36)
[2017-09-23] MEDS: ZOLOFT 50 MG TABLET PO SCH (09:38)
[2017-09-23] MEDS: ELIQUIS PO SCH ×2 (09:39→21:35)
[2017-09-23] MEDS ORDERED: NON-FORMULARY ITEM (Sertraline Hcl [Zoloft] 25 MG) PO SCH (10:00)
[2017-09-23 14:19] LABS: BASOPHIL % 0.5 % (0.0-0.4); Basophil (Absolute #) 0.03 (0-0.4); Eosinophil % 2.6 % (0.00-5.0); Eosinophil (Absolute #) 0.15 (0-0.5); Granulocyte Absolute (ANC) 3.45 (1.4-6.9); Granulocytes % 59.7 % (36.0-66.0); Hematocrit 36.6 % (35-47); Hemoglobin 11.5 gm/dl (12.0-16.0); Lymphocyte (Absolute #) 1.41 (1.0-4.6); Lymphocytes % 24.4 % (24.0-44.0); Mean Cell Volume 97.6 fl (78-100); Mean Corpuscular Hgb Concent. 31.4 g/dl (32-36); Mean Platelet Volume 10.5 fl (6-9.5); Monocyte (Absolute #) 0.74 (0.0-1.3); Monocytes % 12.8 % (0.0-12.0); Platelet Count 184 K/mm3 (150-450); Red Blood Count 3.75 M/mm3 (4.1-5.4); Red Cell Distribution Width 14.4 % (11.5-14.0); White Blood Count 5.8 K/mm3 (4.0-10.5)
[2017-09-23 14:20] LABS: Mean Corpuscular Hemoglobin 30.6 pg (26-32)
[2017-09-23 15:11] LABS: ANION GAP 13.1 MEQ/L (5-15); Calcium 11.7 mg/dL (8.5-10.1); Carbon Dioxide 19.8 mEq/L (21-32); Creatinine 1 1.8 mg/dl (0.55-1.30)
--- NOTE | 2017-09-23 16:08 | PCM.NOTE ---
Date and Time: 09/23/17 1602 Subjective Assessment: She reports that she feels weak and still has a little abdominal pain. She reports the output from her ileostomy is always liquid. She is not sure how she got all the scrapes on her legs. - Review of Systems Constitutional: Weakness Eyes: No Symptoms Ears, Nose, & Throat: No Symptoms Respiratory: No Symptoms Cardiac: No Symptoms Abdominal/Gastrointestinal: Abdominal Pain Genitourinary Symptoms: No Symptoms Musculoskeletal: Myalgias Skin: Skin Lesions Objective Exam General Appearance: no apparent distress, alert Neurologic Exam: alert, cooperative, normal mood/affect Skin Exam: normal color, warm, dry, other (multiple scrapes on her lower extremities bilat), No rash Respiratory Exam: normal breath sounds, lungs clear, No crackles/rales, No rhonchi, No wheezing Cardiovascular Exam: regular rate/rhythm, No murmur, No friction rub, No gallop Gastrointestinal/Abdomen Exam: soft, normal bowel sounds, other (ileostomy bag in place with liquid stool) Extremity Exam: normal inspection, other (no c/c/e) OBJECTIVE DATA Vital Signs: Vital Signs - 24 hr Temp Pulse Resp BP Pulse Ox 09/23/17 12:00 18 09/23/17 11:20 97.8 F 82 20 134/70 96 09/23/17 08:00 20 09/23/17 07:30 98 F 80 20 122/68 96 09/23/17 04:00 98.0 F 71 18 120/57 96 09/23/17 00:22 98.0 F 79 16 132/61 95 09/22/17 20:19 98.5 F 76 18 145/66 96 Pain Assessment - Last Documented Pain Intensity 5 Pain Scale Used 0-10 Pain Scale Intake and Output: Intake & Output 09/21/17 09/22/17 09/23/17 09/24/17 06:59 06:59 06:59 06:59 Intake Total 2615 360 Output Total 85 800 Balance 2530 -440 Weight 52.163 kg 52.299 kg Lab Results: Lab Results-Last 24 Hours 09/22/17 09/23/17 09/23/17 Range/Units 15:52 14:18 14:18 WBC 5.8 (4.0-10.5) K/mm3 RBC 3.75 L (4.1-5.4) M/mm3 Hgb 11.5 L (12.0-16.0) gm/dl Hct 36.6 (35-47) % MCV 97.6 (78-100) fl MCH 30.6 (26-32) pg MCHC 31.4 L (32-36) g/dl RDW 14.4 H (11.5-14.0) % Plt Count 184 (150-450) K/mm3 MPV 10.5 H (6-9.5) fl Gran % 59.7 (36.0-66.0) % Lymphocytes % 24.4 (24.0-44.0) % Monocytes % 12.8 H (0.0-12.0) % Eosinophils % 2.6 (0.00-5.0) % Basophils % 0.5 (0.0-0.4) % Basophils # 0.03 (0-0.4) Sodium 138 (136-145) mEq/L Potassium 4.0 (3.5-5.1) mEq/L Chloride 109 H (98-107) mEq/L Carbon Dioxide 19.8 L (21-32) mEq/L Anion Gap 13.1 (5-15) MEQ/L BUN 27 H (9-20) mg/dL Creatinine 1.80 H (0.55-1.30) mg/dl Estimated GFR 29 ML/MIN Glucose 86 (70-110) MG/DL Calcium 11.7 H (8.5-10.1) mg/dL Ur Collection Type CATH Urine Color YELLOW (YELLOW) Urine Appearance HAZY (CLEAR) Urine pH 6.0 (5-6) Ur Specific [place] 1.010 (1.005-1.025) Urine Protein 300 (Negative) Urine Ketones NEGATIVE (NEGATIVE) Urine Blood 250 (0-5) Thad/ul Urine Nitrite NEGATIVE (NEGATIVE) Urine Bilirubin NEGATIVE (NEGATIVE) Urine Urobilinogen NORMAL (0-1) mg/dL Ur Leukocyte Esterase 2+ (NEGATIVE) Urine Microscopic WBC >100 (0-5) /HPF Urine Bacteria MANY (NEGATIVE) /HPF Urine Culture Reflexed YES (NO) Urine Glucose NEGATIVE (NEGATIVE) mg/dL Specimen Received 09-22-2017 1600 Assessment/Plan (1) Hypercalcemia Current Visit: Yes Status: Acute Assessment & Plan: Her calcium remains high but has improved over the past 24 hours with hydration. Code(s): E83.52 - HYPERCALCEMIA (2) Dehydration with hyponatremia Current Visit: Yes Status: Acute Assessment & Plan: Improved with IV fluids and sodium is now normal. Will decrease IV fluids from 150 mL/hr to 80 mL/hr. Code(s): E87.1 - HYPO-OSMOLALITY AND HYPONATREMIA (3) Acute renal failure Current Visit: Yes Status: Acute Assessment & Plan: Improved with fluids. (4) Atrial fibrillation Current Visit: Yes Status: Acute Assessment & Plan: Continue anticoagulation. Rate is controlled. Code(s): I48.91 - UNSPECIFIED ATRIAL FIBRILLATION (5) Bacteria in urine Current Visit: Yes Status: Acute Assessment & Plan: Urine culture pending. Code(s): R82.71 - BACTERIURIA
[2017-09-23] MEDS: Neurontin 100 MG PO SCH (21:36)
[2017-09-24] MEDS: Sodium Chloride 0.9% 1000 ML 1,000 ML IV SCH ×2 (00:48→14:45)
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
[2017-09-24 09:05] LABS: Hematocrit 34.7 % (35-47); Hemoglobin 10.9 gm/dl (12.0-16.0); Mean Cell Volume 96.7 fl (78-100); Mean Corpuscular Hgb Concent. 31.4 g/dl (32-36); Mean Platelet Volume 10.4 fl (6-9.5); Platelet Count 195 K/mm3 (150-450); Red Blood Count 3.59 M/mm3 (4.1-5.4); Red Cell Distribution Width 14.2 % (11.5-14.0); White Blood Count 5.8 K/mm3 (4.0-10.5)
[2017-09-24 09:09] LABS: Mean Corpuscular Hemoglobin 30.3 pg (26-32)
[2017-09-24 09:22] LABS: ALBUMIN 1.9 g/dL (3.4-5.0); ANION GAP 13.6 MEQ/L (5-15); BILIRUBIN,TOTAL 0.2 mg/dL (0.2-1.0); Carbon Dioxide 16.9 mEq/L (21-32); Creatinine 1 1.47 mg/dl (0.55-1.30); Potassium 3.3 mEq/L (3.5-5.1); Total Protein 6.2 gm/dL (6.4-8.2)
[2017-09-24] MEDS: ROCEPHIN 1 Gm-D5w 50 ml Bag** 1 G/50 ML IVPB IV SCH (09:31)
[2017-09-24] MEDS: MAG-OX 400 PO SCH ×2 (09:31→20:59)
[2017-09-24] MEDS: ELIQUIS PO SCH ×2 (09:31→20:59)
[2017-09-24] MEDS: Pepcid 20 MG PO SCH ×2 (09:32→20:58)
[2017-09-24] MEDS: SYNTHROID 75 MCG PO SCH (09:32)
[2017-09-24] MEDS: ZOLOFT 50 MG TABLET PO SCH (09:32)
[2017-09-24] MEDS: Lopressor 25MG Tab PO SCH ×2 (09:32→20:58)
--- NOTE | 2017-09-24 09:35 | HP ---
HISTORY OF PRESENT ILLNESS: This is a 72 year-old patient from [facility] who presented to the emergency department with a history of hypercalcemia. Her calcium was checked and was found to be 13.[address] at [facility] and repeat was 14.9 in the emergency room. Her family said she had been more confused. They had tried to start an IV at [facility] but they were unable to do this. They felt like she had some dehydration. Her primary care physician had contacted me and said that she has been undergoing a complete work up for hypercalcemia and that she has seen Dr. Patel and she just had a 24 hour urine test and a bone scan last week. The bone scan report was in the computer and said that it was negative for suspicious lytic blastic lesions. The patient herself reports she has had some lower abdominal cramping for the past two weeks and pain. She denies any muscle cramps or aches in her arms or legs. She states she has been urinating but her nurse states she has not had much output in her Sanders when she came in. REVIEW OF SYSTEMS: She denies fever. No cough. She has had rhinorrhea. She has had nausea, no vomiting. She has had a decreased appetite. PAST MEDICAL HISTORY: Hypercalcemia, history of Clostridium difficile, history of fungal pneumonia, rheumatoid arthritis. PAST SURGICAL HISTORY: Right ankle surgery. Bilateral hand surgery. Lymph node biopsy. Cholecystectomy. Tubal ligation. Colon resection for Clostridium difficile with colostomy in place. SOCIAL HISTORY: She lives at [facility]. No alcohol or tobacco use. FAMILY HISTORY: Noncontributory. PHYSICAL EXAMINATION: VITAL SIGNS: Temperature current 98.0F, temperature max 98.6F, heart rate 71 to 113 currently 74, respiratory rate 16 to 20, blood pressure 142 to 156 over 65 to 73. Oxygen saturation 98 to 99% on room air. GENERAL: The patient is sitting up a pleasant talkative lady in no acute distress. She is oriented to person and place. She said the year is 1917. CVS: She has a regular rate and rhythm. No murmurs, gallops or rubs. CHEST: Clear to auscultation bilaterally. No crackles or wheezes. ABDOMEN: Mild tenderness in the right lower abdomen. No guarding. No rigidity. Normal bowel sounds. She has colostomy in place with liquidy green-brown stool. EXTREMITIES: No clubbing, cyanosis or edema. : Sanders catheter is in place. She has a scant amount of urine in the Sanders bag. LABORATORY DATA AND TESTS: Creatinine 2.02, sodium 134, protein 2.6, calcium 14.3, magnesium 2.1. CBC within normal limits. ASSESSMENT AND PLAN: 1) HYPERCALCEMIA: Will plan to rehydrate her if calcium does not correct. 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 She currently has been undergoing work up as an outpatient for hypercalcemia. 2) DEHYDRATION: She is on normal saline at 150 ml/hour, will monitor ins and outs closely. 3) ACUTE RENAL FAILURE: Her baseline creatinine appears to be 0.8 to 1 so again will try fluids to correct this acute renal failure due dehydration. 4)Atrial fibrillation: Continue anticoagulation. 5) Hyperkalemia: Hold potassium. Recheck tomorrow. Continue with hydration.
[2017-09-24] MEDS: Klor Con 10 MEQ PO SCH (17:44)
[2017-09-24] MEDS: NORCO 5/325 MG PO PRN (18:19)
[2017-09-25 08:27] LABS: ALBUMIN 1.9 g/dL (3.4-5.0); ANION GAP 14.7 MEQ/L (5-15); BILIRUBIN,TOTAL 0.2 mg/dL (0.2-1.0); Calcium 10.9 mg/dL (8.5-10.1); Creatinine 1 1.39 mg/dl (0.55-1.30); Potassium 3.2 mEq/L (3.5-5.1); Total Protein 6.4 gm/dL (6.4-8.2)
[2017-09-25 08:29] LABS: Carbon Dioxide 15.7 mEq/L (21-32)
[2017-09-25] MEDS ORDERED: MIACALCIN SQ SCH (09:15)
[2017-09-25] MEDS: ELIQUIS PO SCH ×2 (09:18→21:49)
[2017-09-25] MEDS: MAG-OX 400 PO SCH ×2 (09:19→21:49)
[2017-09-25] MEDS: Pepcid 20 MG PO SCH ×2 (09:19→21:49)
[2017-09-25] MEDS: Klor Con 10 MEQ PO SCH (09:19)
[2017-09-25] MEDS: ROCEPHIN 1 Gm-D5w 50 ml Bag** 1 G/50 ML IVPB IV SCH (09:19)
[2017-09-25] MEDS: ZOLOFT 50 MG TABLET PO SCH (09:20)
[2017-09-25] MEDS: SYNTHROID 75 MCG PO SCH (09:20)
[2017-09-25] MEDS: Lopressor 25MG Tab PO SCH ×2 (09:53→21:49)
[2017-09-25] MEDS: MIACALCIN SQ SCH ×2 (09:54→21:50)
[2017-09-25] MEDS: Sodium Bicarbonate 50 MEQ/50 ML VIAL*** 150 MEQ in Dextrose 5%/Water IV Soln. 1000 ML 1... IV SCH ×2 (10:11→21:52)
[2017-09-25] MEDS: ZOFRAN ODT 4 MG PO PRN (10:13)
[2017-09-25] MEDS: THIAMINE 200 MG/2 ML IV SCH (11:13)
--- NOTE | 2017-09-25 13:32 | PCM.NOTE ---
Date and Time: 09/25/17 1328 Subjective Assessment: slightly less confused today. SHe is able to answer she is in a hospital in [place] which is an improvement. She is still confused on recent events and has some thought processes that are not working well. She is eating now. She denies complaints currently. Denies headache, nausea or abdominal pain. Objective Exam General Appearance: no apparent distress Neurologic Exam: alert, No oriented x 3, No motor deficits Skin Exam: normal color, warm, dry Eye Exam: PERRL, EOMI, eyes nml inspection, scleral icterus Ears, Nose, Throat Exam: pharynx normal, moist mucous membranes Neck Exam: normal inspection, non-tender, supple, full range of motion Respiratory Exam: normal breath sounds, lungs clear, No respiratory distress Cardiovascular Exam: regular rate/rhythm, normal heart sounds Gastrointestinal/Abdomen Exam: soft, other (ileostomy), No tenderness, No mass Extremity Exam: normal inspection, normal range of motion Back Exam: normal inspection, normal range of motion, No CVA tenderness, No vertebral tenderness Pelvic Exam: deferred Rectal Exam: deferred OBJECTIVE DATA Vital Signs: Vital Signs - 24 hr Temp Pulse Resp BP Pulse Ox 09/25/17 11:01 96.7 F 72 16 110/60 94 L 09/25/17 07:37 98.3 F 70 16 117/58 93 L 09/25/17 04:00 97.9 F 79 18 145/70 95 09/25/17 00:00 97.1 F 74 18 156/73 96 09/24/17 20:00 97.6 F 68 16 130/60 98 09/24/17 16:00 98.5 F 75 20 135/63 98 09/24/17 15:59 18 Pain Assessment - Last Documented Pain Intensity 0 Pain Scale Used 0-10 Pain Scale Intake and Output: Intake & Output 09/23/17 09/24/17 09/25/17 09/26/17 11:59 11:59 11:59 11:59 Intake Total 2615 4025 2657 Output Total 85 1400 300 Balance 2530 2625 4087 Weight 52.299 kg 52.254 kg 52.2 kg Lab Results: Lab Results-Last 24 Hours 09/25/17 Range/Units 05:45 Sodium 138 (136-145) mEq/L Potassium 3.2 L (3.5-5.1) mEq/L Chloride 111 H (98-107) mEq/L Carbon Dioxide 15.7 L* (21-32) mEq/L Anion Gap 14.7 (5-15) MEQ/L BUN 19 (9-20) mg/dL Creatinine 1.39 H (0.55-1.30) mg/dl Estimated GFR 39 ML/MIN Glucose 64 L (70-110) MG/DL Calcium 10.9 H (8.5-10.1) mg/dL Total Bilirubin 0.20 (0.2-1.0) mg/dL AST 34 (15-37) U/L ALT 15 (12-78) U/L Alkaline Phosphatase 119 H (46-116) U/L Serum Total Protein 6.4 (6.4-8.2) gm/dL Albumin 1.9 L (3.4-5.0) g/dL Assessment/Plan (1) Acute metabolic encephalopathy Current Visit: Yes Status: Acute Assessment & Plan: secondary to hypercalcemia and uti continue rocephin fluids changed to 0.45 NaCl last night but continues to have worsening hypercloremic metabolic acidosis will change to NaHCO3 at 100 mL/h with her chronic GI losses from the ileostomy with chronic loose stools also add calcitonin for persistent elevated Ca the creatinine continues to improve but remains elevated. Hopeful for stable for ECF tomorrow she has appt with Dr. Benedict tomorrow in [place] may see if he will see her in the hospital Code(s): G93.41 - METABOLIC ENCEPHALOPATHY (2) Hypercalcemia Current Visit: Yes Status: Acute Code(s): E83.52 - HYPERCALCEMIA (3) Acute renal failure Current Visit: Yes Status: Acute (4) Atrial fibrillation Current Visit: Yes Status: Acute Code(s): I48.91 - UNSPECIFIED ATRIAL FIBRILLATION (5) UTI (urinary tract infection) Current Visit: Yes Status: Acute Code(s): N39.0 - URINARY TRACT INFECTION, SITE NOT SPECIFIED (6) Paroxysmal a-fib Current Visit: Yes Status: Chronic Code(s): I48.0 - PAROXYSMAL ATRIAL FIBRILLATION (7) Rheumatoid arthritis Current Visit: Yes Status: Chronic Code(s): M06.9 - RHEUMATOID ARTHRITIS, UNSPECIFIED (8) Anemia Current Visit: Yes Status: Chronic Qualifiers: Anemia type: other cause Other causes of anemia: acute posthemorrhagic Qualified Code(s): D62 - Acute posthemorrhagic anemia Code(s): D64.9 - ANEMIA, UNSPECIFIED
[2017-09-25] MEDS: xanAX 0.25 MG PO PRN (14:51)
[2017-09-25] MEDS: NORCO 5/325 MG PO PRN (19:49)
[2017-09-26 06:18] LABS: ANION GAP 8.9 MEQ/L (5-15); Calcium 9.1 mg/dL (8.5-10.1); Carbon Dioxide 28.7 mEq/L (21-32); Creatinine 1 1.23 mg/dl (0.55-1.30); Hematocrit 31.4 % (35-47); Hemoglobin 10.2 gm/dl (12.0-16.0); Mean Cell Volume 93.2 fl (78-100); Mean Corpuscular Hgb Concent. 32.5 g/dl (32-36); Mean Platelet Volume 11.3 fl (6-9.5); Platelet Count 210 K/mm3 (150-450); Red Blood Count 3.37 M/mm3 (4.1-5.4); Red Cell Distribution Width 13.7 % (11.5-14.0); White Blood Count 5.9 K/mm3 (4.0-10.5)
[2017-09-26 06:23] LABS: Potassium 2.6 mEq/L (3.5-5.1)
[2017-09-26 06:27] LABS: Mean Corpuscular Hemoglobin 30.2 pg (26-32)
--- NOTE | 2017-09-26 08:01 | PCM.NOTE ---
Date and Time: 09/26/17 0757 Subjective Assessment: she knows she has a doctors appointment today at 2 but doesn't know why. She is unsure of why she is here. SHe states her abdomen hurts today and she was vomiting last night. SHe was very aggitated yesterday and confused last night and moved rooms for closer monitoring. Objective Exam General Appearance: no apparent distress Neurologic Exam: alert, cooperative, normal mood/affect, nml cerebellar function , sensation nml, No oriented x 3, No motor deficits Skin Exam: normal color, warm, dry Eye Exam: PERRL, EOMI, eyes nml inspection Ears, Nose, Throat Exam: normal ENT inspection, pharynx normal, moist mucous membranes Neck Exam: normal inspection, non-tender, supple, full range of motion Respiratory Exam: normal breath sounds, lungs clear, No respiratory distress Cardiovascular Exam: regular rate/rhythm, normal heart sounds Gastrointestinal/Abdomen Exam: other (liquid green ileostomy fluid tender abdomen with some gurading diffusely voluntary withotu rebound tenderness.) Extremity Exam: normal inspection, normal range of motion Back Exam: normal inspection, normal range of motion, No CVA tenderness, No vertebral tenderness Pelvic Exam: deferred Rectal Exam: deferred OBJECTIVE DATA Vital Signs: Vital Signs - 24 hr Temp Pulse Resp BP Pulse Ox 09/26/17 06:48 97.8 F 80 20 136/74 95 09/26/17 04:05 98.3 F 90 18 139/60 92 L 09/26/17 00:10 97.7 F 76 16 120/55 96 09/25/17 20:00 98.2 F 81 18 144/65 95 09/25/17 16:00 98.0 F 77 20 172/75 93 L 09/25/17 12:00 16 09/25/17 11:01 96.7 F 72 16 110/60 94 L 09/25/17 08:00 20 Pain Assessment - Last Documented Pain Intensity 0 Pain Scale Used 0-10 Pain Scale Intake and Output: Intake & Output 09/23/17 09/24/17 09/25/17 09/26/17 11:59 11:59 11:59 11:59 Intake Total 2615 4025 2657 2575 Output Total 85 0162 715 0581 Balance 2530 2625 2257 1075 Weight 52.299 kg 52.254 kg 52.2 kg 53 kg Lab Results: Lab Results-Last 24 Hours 09/25/17 09/26/17 09/26/17 Range/Units 05:45 05:10 05:10 WBC 5.9 (4.0-10.5) K/mm3 RBC 3.37 L (4.1-5.4) M/mm3 Hgb 10.2 L (12.0-16.0) gm/dl Hct 31.4 L (35-47) % MCV 93.2 (78-100) fl MCH 30.2 (26-32) pg MCHC 32.5 (32-36) g/dl RDW 13.7 (11.5-14.0) % Plt Count 210 (150-450) K/mm3 MPV 11.3 H (6-9.5) fl Sodium 138 141 (136-145) mEq/L Potassium 3.2 L 2.6 L* (3.5-5.1) mEq/L Chloride 111 H 106 (98-107) mEq/L Carbon Dioxide 15.7 L* 28.7 (21-32) mEq/L Anion Gap 14.7 8.9 (5-15) MEQ/L BUN 19 12 (9-20) mg/dL Creatinine 1.39 H 1.23 (0.55-1.30) mg/dl Estimated GFR 39 45 ML/MIN Glucose 64 L 96 (70-110) MG/DL Calcium 10.9 H 9.1 (8.5-10.1) mg/dL Total Bilirubin 0.20 (0.2-1.0) mg/dL AST 34 (15-37) U/L ALT 15 (12-78) U/L Alkaline Phosphatase 119 H (46-116) U/L Serum Total Protein 6.4 (6.4-8.2) gm/dL Albumin 1.9 L (3.4-5.0) g/dL Radiology Exams: Radiology Procedures Category Date Time Status ABDOMEN AND PELVIS W/0 CONTRAS [CT] Routine Exams 09/26/17 07:55 Ordered HEAD WITHOUT CONTRAST [CT] Stat Exams 09/26/17 07:48 Ordered Assessment/Plan (1) Acute metabolic encephalopathy Current Visit: Yes Status: Acute Assessment & Plan: the calcium is improved renal function improving but confusion worsened yesterday check ct head consider mri if normal worsening adominal pain and vomiting check ct abd/pelvis K low 40 K rider and recheck add back reglan for the nausea and vomiting d/c hydrocodone unclear how much she is getting see if this is contributing to her confusion continue the fluids for now and the calcitonin Dr. Benedict office was contacted yesterday and they stated he would see her in the hospital or let us know. Code(s): G93.41 - METABOLIC ENCEPHALOPATHY (2) Hypercalcemia Current Visit: Yes Status: Acute Code(s): E83.52 - HYPERCALCEMIA (3) Acute renal failure Current Visit: Yes Status: Acute (4) Atrial fibrillation Current Visit: Yes Status: Acute Code(s): I48.91 - UNSPECIFIED ATRIAL FIBRILLATION (5) UTI (urinary tract infection) Current Visit: Yes Status: Acute Code(s): N39.0 - URINARY TRACT INFECTION, SITE NOT SPECIFIED (6) Paroxysmal a-fib Current Visit: Yes Status: Chronic Code(s): I48.0 - PAROXYSMAL ATRIAL FIBRILLATION (7) Rheumatoid arthritis Current Visit: Yes Status: Chronic Code(s): M06.9 - RHEUMATOID ARTHRITIS, UNSPECIFIED (8) Anemia Current Visit: Yes Status: Chronic Qualifiers: Anemia type: other cause Other causes of anemia: acute posthemorrhagic Qualified Code(s): D62 - Acute posthemorrhagic anemia Code(s): D64.9 - ANEMIA, UNSPECIFIED
[2017-09-26] MEDS: POTASSIUM CHLORIDE 20 mEq IN WATER 100ML 20 MEQ/100 ML BAG IV SCH ×2 (08:11→09:43)
[2017-09-26] MEDS: ELIQUIS PO SCH ×2 (09:08→22:56)
[2017-09-26] MEDS: SYNTHROID 75 MCG PO SCH (09:08)
[2017-09-26] MEDS: Klor Con 10 MEQ PO SCH (09:09)
[2017-09-26] MEDS: Lopressor 25MG Tab PO SCH ×2 (09:09→22:56)
[2017-09-26] MEDS: MAG-OX 400 PO SCH ×2 (09:09→22:56)
[2017-09-26] MEDS: Pepcid 20 MG PO SCH ×2 (09:09→22:56)
[2017-09-26] MEDS: THIAMINE 200 MG/2 ML IV SCH (09:10)
[2017-09-26] MEDS: ROCEPHIN 1 Gm-D5w 50 ml Bag** 1 G/50 ML IVPB IV SCH (09:10)
--- NOTE | 2017-09-26 09:10 | XRAY ---
Indication: Acute mental status change. Abdominal pain and vomiting. Multiple contiguous axial images obtained through the head without contrast. Comparison: January 31, 2017. Stable age-appropriate global atrophy and mild periventricular degenerative micro-ischemia bilaterally. No acute intracranial hemorrhage, abnormal extra-axial fluid collection, or mass effect. Fourth ventricle is midline without hydrocephalus. Bony calvarium intact. There is now mild mucosal thickening of both ethmoid sinuses and lesser degree left maxillary sinus. Mastoid air cells. Impression: Again nonacute senile brain. Incidental paranasal sinus disease. CT DI 68.32
[2017-09-26] MEDS: MIACALCIN SQ SCH ×2 (09:15→22:58)
[2017-09-26] MEDS: Sodium Bicarbonate 50 MEQ/50 ML VIAL*** 150 MEQ in Dextrose 5%/Water IV Soln. 1000 ML 1... IV SCH ×2 (09:24→22:55)
--- NOTE | 2017-09-26 09:28 | XRAY ---
Indication: Abdominal pain. Vomiting. Multiple contiguous axial images obtained through the abdomen and pelvis without contrast as ordered. Comparison: May 18, 2017. Lung bases again demonstrates small bilateral effusions with dependent atelectasis less than before. Heart is not enlarged. Previous hiatal hernia is not seen presumed sliding-type. There has been interval abdominal surgery with new right lower quadrant ostomy. Rectal stump unremarkable. Noncontrasted stomach and bowel loops appear nonobstructed. No free fluid/air. New nonobstructing 4 mm left renal calculus. Again cholecystectomy clips and 1cm left lobe hepatic cyst. Pancreas now appears prominent especially head of the pancreas with mild peripancreatic stranding concerning for pancreatitis. There is also new mild diffuse mesenteric fatty stranding with scattered small mesenteric nodes possibly mesenteric adenitis. Remaining liver, spleen, adrenal glands, kidneys, ureters, and uterus appear unremarkable for noncontrast exam. Mild aortoiliac calcifications without AAA. Osseous structures intact with again degenerative spondylosis throughout the spine. Impression: 1. Pancreas is now prominent with mild peripancreatic stranding. Rule out pancreatitis. 2. Status post colonic resection with right lower quadrant colostomy. 3. New scattered small mesenteric nodes with stranding favoring mesenteric adenitis. 4. New nonobstructing left renal micro-calculus. 5. Stable hepatic cyst. 6. Again small bibasilar pleural effusions/atelectasis less than before. CTDI 10.41
[2017-09-26] MEDS: ZOFRAN ODT 4 MG PO PRN ×2 (11:47→18:05)
[2017-09-26] MEDS: Reglan 5 MG PO SCH ×2 (11:48→17:13)
[2017-09-26] MEDS ORDERED: POTASSIUM CHLORIDE 20 mEq IN WATER 100ML 20 MEQ/100 ML BAG IV ONE (16:42)
[2017-09-26] MEDS: Magnesium 1 Gm / 100 Ml D5W*** 100 ML IV SCH ×2 (17:16→18:01)
[2017-09-27 06:07] LABS: Hematocrit 32.4 % (35-47); Hemoglobin 10.4 gm/dl (12.0-16.0); Mean Cell Volume 94.7 fl (78-100); Mean Corpuscular Hemoglobin 30.4 pg (26-32); Mean Corpuscular Hgb Concent. 32.1 g/dl (32-36); Mean Platelet Volume 10.7 fl (6-9.5); Platelet Count 192 K/mm3 (150-450); Red Blood Count 3.42 M/mm3 (4.1-5.4); Red Cell Distribution Width 13.8 % (11.5-14.0); White Blood Count 6.2 K/mm3 (4.0-10.5)
[2017-09-27 06:45] LABS: ANION GAP 6.7 MEQ/L (5-15); BILIRUBIN,TOTAL 0.2 mg/dL (0.2-1.0); Calcium 8.5 mg/dL (8.5-10.1); Carbon Dioxide 34.3 mEq/L (21-32); Creatinine 1 1.18 mg/dl (0.55-1.30); MAGNESIUM 1.8 mg/dL (1.8-2.4); Total Protein 6.1 gm/dL (6.4-8.2)
[2017-09-27 07:01] LABS: AMYLASE 152 U/L (25-115)
[2017-09-27 07:03] LABS: LIPASE 1923 U/L (73-393)
[2017-09-27] MEDS: POTASSIUM CHLORIDE 20 mEq IN WATER 100ML 20 MEQ/100 ML BAG IV SCH ×2 (07:36→10:21)
[2017-09-27] MEDS: Pepcid 20 MG PO SCH ×2 (07:38→20:50)
[2017-09-27] MEDS: Lopressor 25MG Tab PO SCH ×2 (07:38→20:49)
[2017-09-27] MEDS: MAG-OX 400 PO SCH ×2 (07:38→20:49)
[2017-09-27] MEDS: ELIQUIS PO SCH ×2 (07:39→20:48)
[2017-09-27] MEDS: Reglan 5 MG PO SCH ×3 (07:39→18:31)
[2017-09-27] MEDS: Klor Con 10 MEQ PO SCH (07:39)
[2017-09-27] MEDS: THIAMINE 200 MG/2 ML IV SCH (07:40)
[2017-09-27] MEDS: SYNTHROID 75 MCG PO SCH (07:40)
--- NOTE | 2017-09-27 08:29 | CONS ---
CONSULT DATE: 09/26/2017 REASON FOR CONSULT: Hypercalcemia unclear etiology. HISTORY: Miss Syeda Mancera a 72 year-old white female known to me with elevated in protein level and the patient underwent work up including bone marrow aspiration and biopsy that came back negative. Also, the patient had current survey which was negative. No evidence of any lesions in the bones. The patient had a free Lamda light chain test done 58, free [place]-Lamda light chain 2.27, [place]-Lamda ratio 25. On 08/14/2017, calcium level was 11.1, TSH 4.25, vitamin D 18. PTH intact level which was 7 which is low compared to normal between 15 and 72 range. PTH later was normal 3.1. Repeated vitamin D 125, vitamin D1 25-hydroxy normal 45.3. On 08/27/2017, serum protein electrophoresis consistent with increased gamma globulin 1.73 gm/dcl. Total protein 6, albumin 2.27. No monoclonal protein is identified. IgG kappa monoclonal protein 12 gm, IgM Lamda monoclonal protein is identified. On 09/02/2017, calcium levels went up to 11.9. The patient was brought to the hospital on 09/22/2017. Calcium levels were 14.3. The patient was admitted to the hospital and received IV fluids. The protein and calcium levels further showed improving but it was still high 10.9 on 09/25/2017. On 09/23/2017, calcium was 11.7. It is getting better. Dr. Rashad Rabago gave her calcitonin every 12 hours so far three doses starting yesterday. Today, the calcium level is normal at 9.1. The patient is complaining of generalized weakness and abdominal discomfort and otherwise denies any nausea, vomiting, diarrhea, constipation, urinary problems, bleeding, fever, chills, sore throat, headache, blurring of vision. PAST MEDICAL HISTORY: Other medical problems hypercalcemia, hypertension, depression, hypothyroidism. Cardiac arrhythmia, hypothyroidism, fibromyalgia, gastroesophageal reflux disease. PAST SURGICAL HISTORY: Cholecystectomy in the past. HOME MEDICATIONS: Metoprolol, Sertraline, acetaminophen, levothyroxine, Ondansetron, famotidine, gabapentin, magnesium, potassium chloride. ALLERGIES: PROPOXYPHENE CAUSES NAUSEA. SOCIAL HISTORY: Never smoked, denies alcohol drinking, denies drug abuse. FAMILY HISTORY: Noncontributory. PHYSICAL EXAMINATION: Alert, awake, oriented, pleasant, cooperative. SKIN: No cyanosis. Nonfocal. EXTREMITIES: No clubbing or tenderness. No edema. NECK: No raise in JVD. LUNGS: Bilaterally clear. HEART: Regular. ABDOMEN: Soft, bowel sounds present. Today on 09/26/2017, BUN 12, creatinine 1.23, sodium 141, potassium 2.6, calcium 9.1. White blood cell count 5.9, hemoglobin 10.2, PLT count 210,000. ASSESSMENT: 1) HYPERCALCEMIA IMPROVED WITH IV FLUIDS. Also received calcitonin starting yesterday. Yesterday calcium level were 10.9 and today is 9.1. I discussed with the patient and the patient's family at the bedside about the normal calcium level and differential diagnosis. At this time there is no evidence of multiple myeloma or any obvious malignancy noted so far. The patient has a normal PTH level, normal TSH level, normal vitamin D level. The patient used to take Ana Maria's. I advised her to stop the Ana Maria's about the Ana Maria's almost a month ago to stop. I believe she is not taking any more Ana Maria's. Will stop the calcitonin because sometimes low calcium also can cause problems. The patient's family understood. I also called and discussed with Dr. Rashad Rabago on the telephone about the hypercalcemia further management including holding the calcitonin and he agreed. 2) INTERMITTENT ANEMIA: It could be due to dilutional effect. The patient is getting IV fluids more than 100 cc/hour for the last three days. 3) CHRONIC RENAL FAILURE: Improved compared to the day she came in and today is 1.23. 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 PLAN: 1) Continue present management. 2) Hold the Calcitonin. 3) Hold the calcium and vitamin D supplements. 4) Follow up in two to three weeks in my office.
--- NOTE | 2017-09-27 09:51 | PCM.NOTE ---
Date and Time: 09/27/17 0946 Subjective Assessment: She is less confused this am. SHe recalls her conversation with Dr. Layne telling her she did not have any cancer. She is still having abdominal pain. SHe tried some jello this am without vomiting. Objective Exam General Appearance: no apparent distress, alert Neurologic Exam: alert, cooperative, normal mood/affect, sensation nml, No motor deficits Skin Exam: normal color, warm, dry Eye Exam: PERRL, EOMI, eyes nml inspection Ears, Nose, Throat Exam: normal ENT inspection, pharynx normal, moist mucous membranes Neck Exam: normal inspection, non-tender, supple, full range of motion Respiratory Exam: normal breath sounds, lungs clear, No respiratory distress Cardiovascular Exam: regular rate/rhythm, normal heart sounds Gastrointestinal/Abdomen Exam: tenderness, distention, guarding, other (lliquid brown stool in ileostomy bag), No mass Extremity Exam: normal inspection, normal range of motion Back Exam: normal inspection, normal range of motion, No CVA tenderness, No vertebral tenderness Pelvic Exam: deferred Rectal Exam: deferred OBJECTIVE DATA Vital Signs: Vital Signs - 24 hr Temp Pulse Resp BP Pulse Ox 09/27/17 07:13 98.1 F 78 18 118/64 95 09/27/17 04:00 98.2 F 82 18 110/57 93 L 09/27/17 00:00 97.6 F 69 18 121/69 97 09/26/17 20:00 98.5 F 95 H 18 140/63 94 L 09/26/17 16:00 16 09/26/17 15:20 97.6 F 68 18 132/74 95 09/26/17 12:00 18 09/26/17 11:19 97.8 F 70 18 142/68 96 Pain Assessment - Last Documented Pain Intensity 0 Pain Scale Used 0-10 Pain Scale Intake and Output: Intake & Output 09/24/17 09/25/17 09/26/17 09/27/17 11:59 11:59 11:59 11:59 Intake Total 4025 2657 2575 2440 Output Total 1192 328 6735 1001 Balance 2625 2257 675 1439 Weight 52.254 kg 52.2 kg 53 kg 53.8 kg Lab Results: Lab Results-Last 24 Hours 09/26/17 09/26/17 09/26/17 Range/Units 05:10 06:00 12:45 WBC (4.0-10.5) K/mm3 RBC (4.1-5.4) M/mm3 Hgb (12.0-16.0) gm/dl Hct (35-47) % MCV (78-100) fl MCH (26-32) pg MCHC (32-36) g/dl RDW (11.5-14.0) % Plt Count (150-450) K/mm3 MPV (6-9.5) fl Sodium (136-145) mEq/L Potassium 3.5 (3.5-5.1) mEq/L Chloride (98-107) mEq/L Carbon Dioxide (21-32) mEq/L Anion Gap (5-15) MEQ/L BUN (9-20) mg/dL Creatinine (0.55-1.30) mg/dl Estimated GFR ML/MIN Glucose (70-110) MG/DL Calcium (8.5-10.1) mg/dL Magnesium 1.2 L (1.8-2.4) mg/dL Total Bilirubin (0.2-1.0) mg/dL AST (15-37) U/L ALT (12-78) U/L Alkaline Phosphatase (46-116) U/L Serum Total Protein (6.4-8.2) gm/dL Albumin (3.4-5.0) g/dL Amylase (25-115) U/L Lipase 1864 H (73-393) U/L 09/27/17 09/27/17 09/27/17 Range/Units 05:12 05:12 05:12 WBC 6.2 (4.0-10.5) K/mm3 RBC 3.42 L (4.1-5.4) M/mm3 Hgb 10.4 L (12.0-16.0) gm/dl Hct 32.4 L (35-47) % MCV 94.7 (78-100) fl MCH 30.4 (26-32) pg MCHC 32.1 (32-36) g/dl RDW 13.8 (11.5-14.0) % Plt Count 192 (150-450) K/mm3 MPV 10.7 H (6-9.5) fl Sodium 140 (136-145) mEq/L Potassium 3.0 L* (3.5-5.1) mEq/L Chloride 101 (98-107) mEq/L Carbon Dioxide 34.3 H (21-32) mEq/L Anion Gap 6.7 (5-15) MEQ/L BUN 7 L (9-20) mg/dL Creatinine 1.18 (0.55-1.30) mg/dl Estimated GFR 48 ML/MIN Glucose 99 (70-110) MG/DL Calcium 8.5 (8.5-10.1) mg/dL Magnesium 1.8 (1.8-2.4) mg/dL Total Bilirubin 0.20 (0.2-1.0) mg/dL AST 34 (15-37) U/L ALT 13 (12-78) U/L Alkaline Phosphatase 98 (46-116) U/L Serum Total Protein 6.1 L (6.4-8.2) gm/dL Albumin 2.0 L (3.4-5.0) g/dL Amylase 152 H (25-115) U/L Lipase 1923 H (73-393) U/L Radiology Exams: Radiology Procedures Category Date Time Status ABDOMEN AND PELVIS W/0 CONTRAS [CT] Routine Exams 09/26/17 07:55 Completed HEAD WITHOUT CONTRAST [CT] Stat Exams 09/26/17 07:48 Completed Ultrasound Liver or Spleen [LIVER OR SPLEEN] [US] Exams 09/27/17 Ordered Routine Multi-Disciplinary Progress Notes: Multi-Disciplinary Progress Notes 09/26/17 10:45 (created 09/26/17 16:01) Case Management Note by Stacey Baker PLAN TO RETURN TO [facility] ON DISCHARGE. NO ADDNL DC NEEDS NOTED AT THIS TIME. WILL FOLLOW FOR ALL DC NEEDS. Initialized on 09/26/17 16:01 - END OF NOTE Assessment/Plan (1) Pancreatitis Current Visit: Yes Status: Acute Assessment & Plan: she became symptomatic with pain yesterday vomiting the day prior ct evidence and elevated lipase actually a little more tender today in the abdomen she had previous evaluation after pancreatitis in february 2017 with mrcp and ultrasound and hida and had cholecystectomy then will repeat ultrasound consider mrcp with the recurrence SHe has previously seen GI specialist Dr. Ware prior to her colectomy earlier this year for pancolitis. trend lipase/amylase Her hypercalcemia is resolved the corrected calcium is down today as well and the confusion is better change fluids back to D5 1/2 ns with 20 kcl with hypokalemia hypomagnesemia improved stop the calcitonin Possible result of ? recurrent or chronic pancreatitis with decreased po intake as well as increased GI losses from the ileostomy? Following with nephrology as outpatient Code(s): K85.90 - ACUTE PANCREATITIS WITHOUT NECROSIS OR INFECTION, UNSP (2) Acute metabolic encephalopathy Current Visit: Yes Status: Acute Code(s): G93.41 - METABOLIC ENCEPHALOPATHY (3) Hypercalcemia Current Visit: Yes Status: Acute Code(s): E83.52 - HYPERCALCEMIA (4) Acute renal failure Current Visit: Yes Status: Acute (5) Atrial fibrillation Current Visit: Yes Status: Acute Code(s): I48.91 - UNSPECIFIED ATRIAL FIBRILLATION (6) UTI (urinary tract infection) Current Visit: Yes Status: Acute Code(s): N39.0 - URINARY TRACT INFECTION, SITE NOT SPECIFIED (7) Paroxysmal a-fib Current Visit: Yes Status: Chronic Code(s): I48.0 - PAROXYSMAL ATRIAL FIBRILLATION (8) Rheumatoid arthritis Current Visit: Yes Status: Chronic Code(s): M06.9 - RHEUMATOID ARTHRITIS, UNSPECIFIED (9) Anemia Current Visit: Yes Status: Chronic Qualifiers: Anemia type: other cause Other causes of anemia: acute posthemorrhagic Qualified Code(s): D62 - Acute posthemorrhagic anemia Code(s): D64.9 - ANEMIA, UNSPECIFIED
[2017-09-27] MEDS: ROCEPHIN 1 Gm-D5w 50 ml Bag** 1 G/50 ML IVPB IV SCH (10:22)
[2017-09-27] MEDS: ZOFRAN ODT 4 MG PO PRN (11:20)
[2017-09-27] MEDS: D5W/0.45NS W/ 20mEq KCl 1000 ML 1,000 ML IV SCH ×2 (12:15→22:17)
--- NOTE | 2017-09-27 14:04 | XRAY ---
Indication: Right upper quadrant pain. Pancreatitis. Cholecystectomy. Two-dimensional right upper quadrant abdominal sonogram performed. Comparison: None Head of the pancreas appears slightly hypoechogenic and enlarged with rim of color Doppler flow. Findings correspond to abnormality on recent noncontrasted CT exam. Findings could be pancreatitis with mass not completely excluded. There is no peripancreatic fluid or abnormal pancreatic ductal dilatation. Gallbladder surgically absent. Common bile duct measures 1.8 mm. Remaining visualized portions of the liver and right kidney appear sonographically unremarkable. Right kidney measures 8 cm in length. No ascites. Impression: Abnormal prominent hypoechogenic pancreatic head with color flow. Rule out pancreatitis versus mass. Pancreatitis is favored as there is no abnormal ductal dilatation. CT or MRI with contrast exam with special attention to the pancreas may yield further information if there remains further clinical concern.
[2017-09-27] MEDS: xanAX 0.25 MG PO PRN (20:49)
[2017-09-28 05:29] LABS: ANION GAP 11.9 MEQ/L (5-15); Calcium 8.4 mg/dL (8.5-10.1); Carbon Dioxide 25.1 mEq/L (21-32); Creatinine 1 1.05 mg/dl (0.55-1.30); MAGNESIUM 1.4 mg/dL (1.8-2.4); Potassium 3.8 mEq/L (3.5-5.1)
[2017-09-28] MEDS: Reglan 5 MG PO SCH ×2 (07:54→11:10)
--- NOTE | 2017-09-28 10:39 | XRAY ---
Indication: Hallucinations. Sagittal, coronal, and axial MRI brain was performed without contrast using T1, T2, FLAIR, diffusion, and ADC sequences. Comparison: July 28, 2016. There is again age-appropriate global atrophy. Progressive worsening moderate periventricular degenerative micro-ischemia bilaterally. Diffusion images negative for restricted signal. No acute intracranial hemorrhage, abnormal extra-axial fluid collection, or mass effect. Fourth ventricle is midline. No hydrocephalus. 7/8 cranial nerve complex bilaterally symmetric. Normal flow-void signal within the major intracerebral circulation. Normal-appearing craniocervical junction and sella turcica. Mild mucosal thickening of both ethmoid sinuses. Impression: 1. Nonacute senile brain with interval worsening degenerative micro-ischemia. 2. Minimal paranasal sinus disease.
--- NOTE | 2017-09-28 10:55 | PCM.DS ---
Discharge Summary Date of Admission: 09/22/17 13:16 Date of Discharge: 09/28/2017 Admitting Physician: ANDREAS FISH Primary Care Provider: RAVEN CARPENTER Allergies Allergies propoxyphene HCl [From Darvon] Allergy (Verified 09/22/17 13:58) nausea Hospital Summary - Vitals & Intake/Output Vital Signs: Vital Signs Temperature 98 F 09/28/17 07:28 Pulse Rate 80 09/28/17 07:28 Respiratory Rate 18 09/28/17 07:28 Blood Pressure 136/74 09/28/17 07:28 O2 Sat by Pulse Oximetry 95 09/28/17 07:28 Oxygen-Last Documented O2 Percentage 3 Liters = 32% Intake & Output: Intake & Output 09/25/17 09/26/17 09/27/17 09/28/17 11:59 11:59 11:59 11:59 Intake Total 2657 2575 2440 2616 Output Total 400 1900 1601 1500 Balance 2257 590 970 9427 Weight 52.2 kg 53 kg 53.8 kg 53.2 kg - Lab Result Diagrams: 09/27/17 05:12 09/28/17 04:45 Lab Results-Last 24 Hrs: Lab Results-Last 24 Hours 09/27/17 09/28/17 Range/Units 14:30 04:45 Sodium 137 (136-145) mEq/L Potassium 3.5 3.8 (3.5-5.1) mEq/L Chloride 104 (98-107) mEq/L Carbon Dioxide 25.1 (21-32) mEq/L Anion Gap 11.9 (5-15) MEQ/L BUN 5 L (9-20) mg/dL Creatinine 1.05 (0.55-1.30) mg/dl Estimated GFR 54 ML/MIN Glucose 96 (70-110) MG/DL Calcium 8.4 L (8.5-10.1) mg/dL Magnesium 1.4 L (1.8-2.4) mg/dL Amylase 123 H (25-115) U/L Lipase 1442 H (73-393) U/L Micro Results-Entire Visit: Microbiology 09/22/17 15:52 - Final Catherized Klebsiella Pneumoniae - Radiology Exams Ordered Rad Exams-Entire Visit: Radiology Procedures Category Date Time Status MRI BRAIN W/O CONTRAST [MRI] Routine Exams 09/28/17 07:57 Completed Ultrasound Liver or Spleen [LIVER OR SPLEEN] [US] Exams 09/27/17 13:29 Completed Routine - Procedures and Test Procedures and Tests throughout Hospitalization: Therapy Orders & Screens 09/22/17 14:21 OT Screen per Nursing Assess Comment: Protocol Order Physician Instructions: Greater than 3 points order OT Admission Screening Reason For Exam: Triggered on Admission Diagnosis: HYPERCALEMIA, DEHYDTRATION, AZOTEMIA Open Wound/Cellutlitis/Pressure Ulcers: No Acute Fx/ORIF/Change in wt bearing status: No Severe MUSCULOSKELETAL pain: No ADL Dysfunction: Yes Acute CVA w/Hemiparesis/Hemiplegia: No Decreased Functional Mobility/Strength: Yes Sprain/Strain: No Acute Post-op Mobility Dysfunction: No Total Points: 4 PT Screen per Nursing Assess Comment: Protocol Order Physician Instructions: Greater than 3 points order PT Admission Screenin Reason For Exam: Triggered on Admission Diagnosis: HYPERCALEMIA, DEHYDTRATION, AZOTEMIA Open Wound/Cellutlitis/Pressure Ulcers: No Acute Fx/ORIF/Change in wt bearing status: No Severe MUSCULOSKELETAL pain: No ADL Dysfunction: Yes Acute CVA w/Hemiparesis/Hemiplegia: No Decreased Functional Mobility/Strength: Yes Sprain/Strain: No Acute Post-op Mobility Dysfunction: No Total Points: 4 Final Diagnosis/Problem List - Final Discharge Diagnosis/Problem (1) Pancreatitis Current Visit: Yes Status: Acute (2) Acute metabolic encephalopathy Current Visit: Yes Status: Acute (3) Hypercalcemia Current Visit: Yes Status: Acute (4) Acute renal failure Current Visit: Yes Status: Acute (5) Atrial fibrillation Current Visit: Yes Status: Acute (6) UTI (urinary tract infection) Current Visit: Yes Status: Acute (7) Paroxysmal a-fib Current Visit: Yes Status: Chronic (8) Rheumatoid arthritis Current Visit: Yes Status: Chronic (9) Anemia Current Visit: Yes Status: Chronic - Discharge Discharge Date: 09/28/17 Disposition: DC TO [facility] Condition: Fair Prescriptions: New Simethicone 80 mg [Mylicon 80MG] 80 mg PO QID tab.chew Metoclopramide HCl 5 mg [Reglan 5 MG] 5 mg PO AC tablet Continue Metoprolol Tartrate 25 mg [Lopressor 25MG Tab] 1 tab PO BID Alprazolam 0.25 mg [xanAX 0.25 MG] 0.25 mg PO DAILY PRN PRN PRN Reason: Anxiety Ondansetron [Ondansetron Odt] 4 mg PO Q4HPRN PRN PRN Reason: Nausea Levothyroxine Sodium 75 Mcg [Synthroid 75 Mcg] 75 mcg PO DAILY Acetaminophen 325 mg [Tylenol 325 mg] 650 mg PO Q4H PRN PRN Reason: Pain And/Or Fever Apixaban [Eliquis] 2.5 mg PO BID Potassium Chloride [Klor-Con M20] 20 meq PO DAILY Magnesium Oxide 400 mg [Mag-Ox 400] 400 mg PO BID Hydrocodone/Acetaminophen [Hydrocodon-Acetaminophen 5-325] 1 each PO Q4HPRN PRN PRN Reason: Pain Sertraline HCl [Zoloft] 25 mg PO DAILY Discontinued Gabapentin [Gabapentin] 100 mg PO HS Famotidine [Famotidine] 20 mg PO BID Additional Instructions: Follow up appointment with Dr. Arias Follow up appointment with Dr. Ware for recurrent pancreatitis and chronic vomiting. CBC, Mag, CMP, Lipase in 1 week Follow up with: TIFFANY JARAMILLO [LOCATION] - Forms: Patient Portal Information
[2017-09-28] MEDS: MAG-OX 400 PO SCH (11:11)
[2017-09-28] MEDS: Pepcid 20 MG PO SCH (11:11)
[2017-09-28] MEDS: SYNTHROID 75 MCG PO SCH (11:11)
[2017-09-28] MEDS: Mylicon 80MG PO SCH ×2 (11:11→13:12)
[2017-09-28] MEDS: Lopressor 25MG Tab PO SCH (11:11)
[2017-09-28] MEDS: D5W/0.45NS W/ 20mEq KCl 1000 ML 1,000 ML IV SCH (11:11)
[2017-09-28] MEDS: ELIQUIS PO SCH (11:11)
[2017-09-28] MEDS: Klor Con 10 MEQ PO SCH (11:11)
[2017-09-28] MEDS: ROCEPHIN 1 Gm-D5w 50 ml Bag** 1 G/50 ML IVPB IV SCH (11:12)
[2017-09-28] MEDS: THIAMINE 200 MG/2 ML IV SCH (11:12)
[2017-09-28 11:26] VITALS: BP 124/80; PULSE 70; O2SAT 96
[2017-09-28] MEDS ORDERED: ROCEPHIN 1 Gm-D5w 50 ml Bag** 1 G/50 ML IVPB IV SCH (22:00)
== END 2017-09-28 14:30 | DRG 438 ==
LOC: ED 10:58 → MED SURG 13:16
PROVIDERS: ADMIT Internal Medicine; ATTEND Family Medicine
DX: K85.90 Acute pancreatitis without necrosis or infection, unspecified (principal); G93.41 Metabolic encephalopathy; R79.89 Other specified abnormal findings of blood chemistry; N39.0 Urinary tract infection, site not specified; N17.9 Acute kidney failure, unspecified; M79.7 Fibromyalgia; E87.1 Hypo-osmolality and hyponatremia; I48.91 Unspecified atrial fibrillation; Z79.01 Long term (current) use of anticoagulants; D62 Acute posthemorrhagic anemia; E83.52 Hypercalcemia; I48.0 Paroxysmal atrial fibrillation; M06.9 Rheumatoid arthritis, unspecified; Z90.49 Acquired absence of other specified parts of digestive tract; Z93.3 Colostomy status; E86.0 Dehydration; R82.71 Bacteriuria; I12.9 Hypertensive chronic kidney disease with stage 1 through stage 4 chronic kidney disease, or unspecified chronic kidney disease; N18.9 Chronic kidney disease, unspecified; F32.9 Major depressive disorder, single episode, unspecified; E03.9 Hypothyroidism, unspecified; K21.9 Gastro-esophageal reflux disease without esophagitis; Z79.899 Other long term (current) drug therapy
CPT/HCPCS: 36000; 36415; 51702; 70450; 70551; 74176; 76705; 80048; 80053; 80076; 81000; 82150; 82805; 83690; 83735; 84132; 85025; 85027; 87077; 87086; 87186; 93005; 96360; 96361; 96365; 99285; J0630; J0696; J3475; J3480; Q0162; A9270-GY

== ENCOUNTER 2017-10-19 08:31 | Inpatient (IN) | payer MEDICARE, OTHER ==
[2017-10-19] MEDS ORDERED: Sodium Chloride 0.9% 1000 ML 1,000 ML IV STA (10:30)
[2017-10-19] MEDS ORDERED: Reglan 10 MG/2 ML IV PRN (10:35)
[2017-10-19] MEDS: Zofran 4 MG/2 ML VIAL IV PRN ×2 (12:18→21:07)
[2017-10-19] MEDS: MORPHINE SULFATE 2 MG INJ IV PRN ×2 (12:29→21:07)
--- NOTE | 2017-10-19 12:30 | XRAY ---
Indication: Nausea and vomiting. Comparison: July 26, 2017. Portable chest unchanged again hyperinflated with small left mid to upper lung patchy interstitial alveolar opacity. Heart is not enlarged. Bony thorax intact. No new/acute findings.
--- NOTE | 2017-10-19 12:47 | XRAY ---
Indication: Upper abdominal pain. Nausea and vomiting. Multiple contiguous axial images obtained through the abdomen and pelvis without contrast as ordered. Comparison: September 26, 2017. Lung bases now clear. Heart is not enlarged. Small sliding hiatal hernia. Noncontrasted stomach and bowel loops are now abnormally fluid distended. Small bowel loops are uniformly distended up to 3.5 cm with scattered fluid leveling, ileus versus gastroenteritis. Stable unremarkable right lower quadrant ostomy. Increasing pancreatic head/uncinate process peripancreatic stranding again favoring pancreatitis with new focus involving the tail of the pancreas. Also new small left colic, perihepatic, and pelvic free fluid. No walled off fluid collection or free air. Slight worsening diffuse mesenteric stranding with small mesenteric nodes presumed reactive. Stable nonobstructing left renal micro-calculi, cholecystectomy clips, and left lobe hepatic cyst. Remaining liver, spleen, adrenal glands, kidneys, ureters, bladder, and uterus appear unremarkable for noncontrast exam. Stable mild aortoiliac calcifications without AAA. Osseous structures intact with again degenerative spondylosis throughout the spine. Impression: 1. Interval worsening pancreatitis with new abdominal/pelvic free fluid as detailed. 2. Slight worsening diffuse mesenteric stranding with small mesenteric nodes presumed reactive. 3. New abnormal fluid distended stomach and bowel loops with fluid leveling, reactive ileus versus gastroenteritis. 4. Stable nonobstructing left renal micro-calculi, hepatic cyst, sliding hiatal hernia, and right lower quadrant colostomy. CTDI 10.62
[2017-10-19] MEDS ORDERED: TYLENOL 325 MG PO PRN (13:54)
[2017-10-19] MEDS: Lopressor 25MG Tab PO SCH ×2 (14:21→21:07)
[2017-10-19] MEDS: SYNTHROID 75 MCG PO SCH (14:21)
[2017-10-19] MEDS: PROTONIX 40 MG IV IV SCH (14:21)
[2017-10-19] MEDS: Dextrose 5% -0.45 NaCl 1000 ML 1,000 ML IV SCH ×3 (14:53→23:55)
--- NOTE | 2017-10-19 17:53 | PCM.HP ---
History of Present Illness - Chief Complaint Chief Complaint: pancreatitis Date: 10/19/17 History of Present Illness: is a 72 year old female. with a complicated past medical history. She has been living at [facility] for the past 6+ months to work on rehab following initially a severe pneumonia and then developed c. diff that resulted in colectomy at [facility] with ileostomy. She has had repeated episodes of pancreatitis as well and had a cholecystectomy prior to all of this. She has followed with Dr. Ware in the past and the family believes she had endoscopic ultrasound done in the past. She was actually scheduled to see him today for routine follow up to discuss recurrent pancreatitis but her appointment was rescheduled by the doctor's office yesterday. She has also been worked up for hypercalcemia and is following with Dr. Benedict for this but he feels this is due to her gi losses and dehydration and does not feel she has cancer or multiple myeloma, it has been improved since last hospital discharge. She has been doing very well and was walking with the walker and working on home evaluation with plan for working toward rehab to home when she suddenly developed severe abdominal pain yesterday morning and nausea and began vomiting. She was having epigastric pain radiating to the back. She did not want to go to hospital initially and she was placed on ice chips only diet and started on iv fluids yesterday at [facility] with am labs ordered. This am her labs were drawn but her pain and vomiting were worsening so she was sent for direct admission and CT was obtained. On arrival there was concern for blood in her ileostomy bag and possible coffee ground emesis and GI bleed and thus surgery was consulted. With her persistent vomiting and fluid levels on the CT an NG was placed and this relieved her nausea. On exam now she has no evidence of active GI bleeding. She has dark brown stool in the ostomy bag and dark fluid without obvious blood from the NG. Her pain is improved with the morphine currently and nausea improved as well. - Review of Systems Constitutional: Fatigue, No Fever, No Chills Eyes: No Symptoms Ears, Nose, & Throat: No Symptoms Respiratory: No Cough, No Short Of Breath Cardiac: No Chest Pain, No Edema, No Syncope Abdominal/Gastrointestinal: Abdominal Pain, Nausea, Vomiting Genitourinary Symptoms: No Dysuria Musculoskeletal: No Back Pain, No Neck Pain Skin: No Rash Neurological: No Dizziness, No Focal Weakness, No Sensory Changes Psychological: No Symptoms Endocrine: No Symptoms Hematologic/Lymphatic: No Symptoms Immunological/Allergic: No Symptoms Medications & Allergies Home Medications: Home Medication List Metoprolol Tartrate 25 mg [Lopressor 25MG Tab] 1 tab PO BID 05/17/17 [ History Confirmed 10/19/17] Acetaminophen 325 mg [Tylenol 325 mg] 650 mg PO Q4H PRN 06/02/17 [History Confirmed 10/19/17] Levothyroxine Sodium 75 Mcg [Synthroid 75 Mcg] 75 mcg PO DAILY 06/02/17 [ History Confirmed 10/19/17] Ondansetron [Ondansetron Odt] 4 mg PO Q4HPRN PRN 06/02/17 [History Confirmed 11/04] Apixaban [Eliquis] 2.5 mg PO BID 09/22/17 [History Confirmed 10/19/17] Potassium Chloride [Klor-Con M20] 20 meq PO DAILY 09/22/17 [History Confirmed ] Sertraline HCl [Zoloft] 25 mg PO DAILY 09/22/17 [History Confirmed 10/19/17] Metoclopramide HCl 5 mg [Reglan 5 MG] 5 mg PO AC tablet 09/28/17 [Rx Confirmed 10/19/17] Simethicone 80 mg [Mylicon 80MG] 80 mg PO QID tab.chew 09/28/17 [Rx Confirmed 10/19/17] Allergies/Adverse Reactions: Allergies Allergy/AdvReac Type Severity Reaction Status Date / Time propoxyphene HCl Allergy Verified 09/22/17 13:58 [From Darvon] - Past Medical History Past Medical History: Yes Neurological History: No Pertinent History ENT History: No Pertinent History Cardiac History: Arrhythmia Respiratory History: Pneumonia Endocrine Medical History: Hypothyroidism Musculoskelatal History: Fibromyalgia, Rheumatoid Arthritis GI Medical History: Colitis, GERD History: No Pertinent History Pyscho-Social History: No Pertinent History Reproductive Disorders: No Pertinent History Comment: Afib, - Female History Are you now?: No - Past Surgical History Past Surgical History: Yes Neuro Surgical History: No Pertinent History Cardiac History: No Pertinent History Respiratory Surgery: No Pertinent History GI Surgical History: Bowel Surgery, Cholecystectomy, Other Genitourinary Surgical Hx: No Pertinent History Musculskeletal Surgical Hx: Orthopedic Surgery Female Surgical History: Tubal Ligation Other Surgical History: RIGHT ANKLE SURGERY,BILATERAL HAND SURGERY, lymph node biopsy , COLOSTOMY - Social History Smoking Status: Never smoker Exposure to second hand smoke: No Alcohol: None Drug Use: none Significant Family History: no pertinent family hx - Physical Exam Vital Signs: Vital Signs - 24 hr Temp Pulse Resp BP Pulse Ox 10/19/17 16:00 98.5 F 73 16 126/58 98 10/19/17 12:00 20 10/19/17 11:09 97.7 F 86 20 130/81 96 10/19/17 10:50 20 10/19/17 10:17 97.7 F 86 20 130/81 96 General Appearance: no apparent distress, alert Neurologic Exam: alert, oriented x 3, cooperative, normal mood/affect, nml cerebellar function, sensation nml, No motor deficits Eye Exam: PERRL/EOMI, eyes nml inspection Ears, Nose, Throat Exam: normal ENT inspection, pharynx normal, moist mucous membranes Neck Exam: normal inspection, non-tender, supple, full range of motion Respiratory Exam: normal breath sounds, lungs clear, No respiratory distress Cardiovascular Exam: regular rate/rhythm, normal heart sounds, normal peripheral pulses Gastrointestinal/Abdomen Exam: No normal bowel sounds (hypoactive), No tenderness (diffuse worse central and epigastric with some voluntary guarding), No mass Back Exam: normal inspection, normal range of motion, No CVA tenderness, No vertebral tenderness Extremity Exam: normal inspection, normal range of motion, pelvis stable Skin Exam: normal color, warm, dry, No rash Lymphatic Exam: No adenopathy Results - Radiology Impressions Radiology Exams & Impressions: Radiology Procedures Category Date Time Status ABDOMEN AND PELVIS W/0 CONTRAS [CT] Stat Exams 10/19/17 10:36 Completed CHEST 1 VIEW (PORTABLE) Stat Exams 10/19/17 10:35 Completed Assessment/Plan (1) Pancreatitis Current Visit: Yes Status: Acute Assessment & Plan: severe acute recurrent with free fluid in the abdomen. Possible cause is the hypercalcemia. She was previously following with Dr. Ware of GI as outpatient. Family believes he has already done and endoscopic ultrasound in the past we do not have these records. She has had the gallbladder removed for this in the past. On initial presentation there was concern of some blood in the ileostomy bag and concern of possible coffee ground emesis. General surgery was consulted for this and on CT there were fluid levels and she was very nauseated and vomiting and thus NG was placed. Since this time there has not been evidence of ongoing GI bleeding. NG continues to low int suction for now as this has relieved her nausea morphine has improved her pain and she is resting comfortably currently monitor serial cbc, lytes, lipase trend correct hypercalcemia with hydration for now continue telemetry inpatient care anticoagulation on hold with the initial concern of gi bleeding she was on chronically for paroxysmal afib and is currently in sinus rhythm. She has no evidence of infection currently and no fevers or vital sign irregularities and is not currently on antibiotics. Code(s): K85.90 - ACUTE PANCREATITIS WITHOUT NECROSIS OR INFECTION, UNSP (2) Hypercalcemia Current Visit: Yes Status: Acute Assessment & Plan: recurrent previously evaluated and is following with Dr. Romero and Dr. Benedict as an outpatient work up has been negative thus far for malignancy and has been attributed to gi related fluid depletion from ileostomy Code(s): E83.52 - HYPERCALCEMIA (3) Paroxysmal a-fib Current Visit: Yes Status: Chronic Assessment & Plan: currently in sinus rhythm eliquis stopped with the concern over possible GI bleeding on presentation Code(s): I48.0 - PAROXYSMAL ATRIAL FIBRILLATION (4) Rheumatoid arthritis Current Visit: Yes Status: Chronic Code(s): M06.9 - RHEUMATOID ARTHRITIS, UNSPECIFIED (5) GI bleed Current Visit: Yes Status: Suspected Assessment & Plan: on arrival was noted to have scant blood in ileostomy and prior to arrival she was reported to have concern for coffee ground emesis this has not recurred since arrival and general surgery was consulted. keep on telemetry Code(s): K92.2 - GASTROINTESTINAL HEMORRHAGE, UNSPECIFIED (6) Acute renal failure Current Visit: Yes Status: Acute (7) Ileostomy in place Current Visit: Yes Status: Acute Code(s): Z93.2 - ILEOSTOMY STATUS
[2017-10-20] MEDS: Zofran 4 MG/2 ML VIAL IV PRN ×3 (02:47→16:50)
[2017-10-20] MEDS: MORPHINE SULFATE 2 MG INJ IV PRN (02:47)
[2017-10-20 06:01] LABS: BASOPHIL % 0.1 % (0.0-0.4); Basophil (Absolute #) 0.02 (0-0.4); Eosinophil % 0.7 % (0.00-5.0); Granulocyte Absolute (ANC) 10.44 (1.4-6.9); Granulocytes % 78.1 % (36.0-66.0); Hemoglobin 14.3 gm/dl (12.0-16.0); Lymphocyte (Absolute #) 1.45 (1.0-4.6); Lymphocytes % 10.8 % (24.0-44.0); Mean Cell Volume 96.6 fl (78-100); Mean Corpuscular Hemoglobin 30.7 pg (26-32); Mean Corpuscular Hgb Concent. 31.8 g/dl (32-36); Mean Platelet Volume 10.9 fl (6-9.5); Monocyte (Absolute #) 1.38 (0.0-1.3); Monocytes % 10.3 % (0.0-12.0); Platelet Count 198 K/mm3 (150-450); Red Blood Count 4.66 M/mm3 (4.1-5.4); White Blood Count 13.4 K/mm3 (4.0-10.5)
[2017-10-20 06:51] LABS: ALBUMIN 2.6 g/dL (3.4-5.0); ANION GAP 13.7 MEQ/L (5-15); BILIRUBIN,TOTAL 0.7 mg/dL (0.2-1.0); Calcium 11.3 mg/dL (8.5-10.1); Carbon Dioxide 22.6 mEq/L (21-32); Creatinine 1 1.2 mg/dl (0.55-1.30); Potassium 4.5 mEq/L (3.5-5.1); Total Protein 7.8 gm/dL (6.4-8.2)
[2017-10-20] MEDS: Lopressor 25MG Tab PO SCH ×2 (10:00→23:05)
[2017-10-20] MEDS: SYNTHROID 75 MCG PO SCH (10:00)
[2017-10-20] MEDS: PROTONIX 40 MG IV IV SCH (12:54)
[2017-10-20] MEDS ORDERED: Sodium Chloride 0.9% 1000 ML 1,000 ML IV STA ×2 (14:08→15:54)
[2017-10-20] MEDS ORDERED: PHARMACY DOSING REQUEST MC ONE (14:47)
[2017-10-20] MEDS: FLAGYL 500 MG IVPB 500 MG/100 ML BAG IV SCH ×2 (15:20→23:32)
[2017-10-20 15:46] LABS: Lactic Acid 3.4 (0.4-2.0)
[2017-10-20] MEDS: Zosyn 2.25 GM 2.25 GM in Dextrose 5%/Water IV Soln. 100ML PLUS BAG 100 ML IV SCH (16:33)
[2017-10-20] MEDS ORDERED: Dopamine 400 MG/D5W 250ML PREMIX 250 ML IV ONE (17:09)
[2017-10-20] MEDS ORDERED: Dopamine 400 MG/D5W 250ML PREMIX 250 ML IV PRN (17:12)
[2017-10-20] MEDS: LEVOPHED 4 MG/4 ML 4,000 MCG in Dextrose 5%/Water IV Soln. 500 ML 500 ML IV PRN ×3 (17:41→23:38)
[2017-10-20] MEDS ORDERED: Sodium Chloride 0.9% 1000 ML 1,000 ML IV SCH ×2 (20:20→21:45)
[2017-10-20 20:30] LABS: A-aADO2 540; ABG HEMOGLOBIN 12.8; ABG POTASSIUM 3.3 (3.5-5.1); ARTERIAL BLD GAS O2 SATURATION 98.4 % (95-100); ARTERIAL BLOOD GAS BASE EXCESS -18.5 (-2.0-2.0); ARTERIAL BLOOD GAS FIO2 100 %; ARTERIAL BLOOD GAS PCO2 34 mmHg (35-45); ARTERIAL BLOOD GAS PO2 131 mmHg (75-100); CARBOXYHEMOGLOBIN 2.7 % THgb (0.0-6.9); HCO3- 10.3 (22-28); HGB O2 SAT 94.1 g/dF (94-100); Methhemoglobin 1.7 % (1.4-1.5)
[2017-10-20 20:31] LABS: ABG SITE RIGHT RADIAL; ALLEN TEST OK? YES; ARTERIAL BLOOD GAS pH 7.09 (7.35-7.45)
[2017-10-20 20:38] LABS: Lactic Acid 3.9 (0.4-2.0)
[2017-10-20 20:42] LABS: Granulocyte Absolute (ANC) 1.74 (1.4-6.9); Hematocrit 37.4 % (35-47); Hemoglobin 11.7 gm/dl (12.0-16.0); Mean Cell Volume 97.7 fl (78-100); Mean Corpuscular Hemoglobin 30.5 pg (26-32); Mean Corpuscular Hgb Concent. 31.3 g/dl (32-36); Mean Platelet Volume 11.3 fl (6-9.5); Platelet Count 184 K/mm3 (150-450); Red Blood Count 3.83 M/mm3 (4.1-5.4); Red Cell Distribution Width 14.8 % (11.5-14.0); White Blood Count 2.7 K/mm3 (4.0-10.5)
--- NOTE | 2017-10-20 20:44 | XRAY ---
Indication: Tube placement. Comparison: One day earlier. Portable chest demonstrates new endotracheal tube tip 3 cm above the doreen and new NG tube tip in the stomach. New bibasilar infiltrates/atelectasis, left greater than right. Heart is not enlarged. Comment: Preliminary interpretation was made by [facility]. No critical discrepancy.
[2017-10-20 21:07] LABS: ALBUMIN 1.4 g/dL (3.4-5.0); Calcium 8.2 mg/dL (8.5-10.1); Creatinine 1 1.99 mg/dl (0.55-1.30); Potassium 3.4 mEq/L (3.5-5.1); Total Protein 4.7 gm/dL (6.4-8.2)
[2017-10-20 21:13] LABS: Carbon Dioxide 13.8 mEq/L (21-32)
--- NOTE | 2017-10-20 21:36 | XRAY ---
Indication: Code rapid. Aspiration. Comparison: Taken earlier in the day. Portable chest demonstrates new right subclavian central venous access catheter with the tip in the distal SVC without pneumothorax. Slight withdrawal of the NG tube with the tip still in the stomach. Stable endotracheal tube in good position. Lungs better inflated with clear left lung and subtle right base infiltrate/atelectasis. Heart is not enlarged. Impression: 1. Lungs better inflated with subtle right base infiltrate/atelectasis. 2. New right central venous access catheter in good position without complications. 3. Stable endotracheal tube in good position. 4. NG tube has been withdrawn with tip still in the stomach. Comment: Preliminary interpretation was made by C. No discrepancy.
[2017-10-20] MEDS ORDERED: Morphine PCA 1 MG/ML 30 ML IV PRN (21:41)
[2017-10-20] MEDS: PHENYLEPHRINE HCL 10 MG in Dextrose 5%/Water IV Soln. 250 ML 250 ML IV SCH ×2 (22:05→23:40)
[2017-10-20 22:07] LABS: A-aADO2 473; ABG HEMOGLOBIN 11.6; ART BLD GAS PRESSURE SUPPORT 14; ARTERIAL BLD GAS O2 SATURATION 99.9 % (95-100); ARTERIAL BLOOD GAS BASE EXCESS -16.6 (-2.0-2.0); ARTERIAL BLOOD GAS FIO2 100 %; ARTERIAL BLOOD GAS PCO2 24 mmHg (35-45); ARTERIAL BLOOD GAS PEEP 3 cmH2O; ARTERIAL BLOOD GAS PO2 210 mmHg (75-100); ARTERIAL BLOOD GAS VENT MODE CPAP; CARBOXYHEMOGLOBIN 1.3 % THgb (0.0-6.9); HCO3- 9.6 (22-28); HGB O2 SAT 97.4 g/dF (94-100); Methhemoglobin 1.1 % (1.4-1.5); paO2 pAO1 0.31
[2017-10-20 22:08] LABS: ABG POTASSIUM 2.6 (3.5-5.1); ARTERIAL BLOOD GAS pH 7.21 (7.35-7.45)
[2017-10-20 22:09] LABS: ABG SITE RIGHT RADIAL; ALLEN TEST OK? YES
[2017-10-20] MEDS ORDERED: Dextrose 5% -0.45 NaCl 1000 ML 1,000 ML IV ONE (22:25)
[2017-10-20] MEDS: Versed 50 MG/ 10 Ml MDV*** 50 MG in Sodium Chloride 0.9% 250 ML 240 ML IV PRN (22:25)
[2017-10-20] MEDS ORDERED: SODIUM BICARBONATE 50 MEQ/50 ML ABBOJECT IV ONE ×2 (22:41→22:52)
[2017-10-21] MEDS: Zosyn 2.25 GM 2.25 GM in Dextrose 5%/Water IV Soln. 100ML PLUS BAG 100 ML IV SCH ×3 (00:43→11:58)
[2017-10-21] MEDS: PHENYLEPHRINE HCL 10 MG in Dextrose 5%/Water IV Soln. 250 ML 250 ML IV SCH ×10 (01:16→13:08)
[2017-10-21] MEDS: LEVOPHED 4 MG/4 ML 4,000 MCG in Dextrose 5%/Water IV Soln. 500 ML 500 ML IV PRN ×5 (02:11→12:19)
[2017-10-21 02:48] LABS: Eosinophil 1 % (0.00-3.0); Lymphocytes 32 % (24-44); Monocyte 7 % (0.0-12.0); Neutrophils 60 % (36.0-66.0); Platelet Estimate NORMAL (NORMAL); Total Cells Counted 100
[2017-10-21] MEDS: Sodium Chloride 0.9% 1000 ML 1,000 ML IV SCH ×4 (03:06→11:56)
[2017-10-21] MEDS ORDERED: Dextrose 5%/Water IV Soln. 250 ML 250 ML IV ONE ×2 (03:32→04:51)
[2017-10-21] MEDS ORDERED: PHENYLEPHRINE HCL ONE ×2 (03:32→04:50)
[2017-10-21 05:49] LABS: A-aADO2 420; ABG HEMOGLOBIN 12.2; ARTERIAL BLD GAS O2 SATURATION 98.7 % (95-100); ARTERIAL BLD GAS TIDAL VOLUME 450 cc; ARTERIAL BLOOD GAS BASE EXCESS -23.9 (-2.0-2.0); ARTERIAL BLOOD GAS FIO2 80 %; ARTERIAL BLOOD GAS PCO2 33 mmHg (35-45); ARTERIAL BLOOD GAS PEEP 3 cmH2O; ARTERIAL BLOOD GAS PO2 109 mmHg (75-100); ARTERIAL BLOOD GAS VENT MODE A/C; CARBOXYHEMOGLOBIN 3.8 % THgb (0.0-6.9); HCO3- 7.3 (22-28); HGB O2 SAT 93.7 g/dF (94-100); Methhemoglobin 1.3 % (1.4-1.5); paO2 pAO1 0.21
[2017-10-21 05:50] LABS: ABG POTASSIUM 2.6 (3.5-5.1); ARTERIAL BLOOD GAS pH 6.95 (7.35-7.45)
[2017-10-21 05:51] LABS: ABG SITE LEFT RADIAL; ALLEN TEST OK? YES
[2017-10-21 05:59] LABS: Lactic Acid 3.9 (0.4-2.0)
[2017-10-21 06:02] LABS: Granulocyte Absolute (ANC) 2.18 (1.4-6.9); Hematocrit 36.9 % (35-47); Hemoglobin 11.4 gm/dl (12.0-16.0); Mean Cell Volume 98.9 fl (78-100); Mean Corpuscular Hgb Concent. 30.9 g/dl (32-36); Mean Platelet Volume 11.4 fl (6-9.5); Platelet Count 77 K/mm3 (150-450); Red Blood Count 3.73 M/mm3 (4.1-5.4); Red Cell Distribution Width 14.8 % (11.5-14.0); White Blood Count 4.1 K/mm3 (4.0-10.5)
[2017-10-21 06:03] LABS: Mean Corpuscular Hemoglobin 30.5 pg (26-32)
[2017-10-21] MEDS: FLAGYL 500 MG IVPB 500 MG/100 ML BAG IV SCH (06:37)
[2017-10-21] MEDS: Versed 50 MG/ 10 Ml MDV*** 50 MG in Sodium Chloride 0.9% 250 ML 240 ML IV PRN (06:59)
[2017-10-21 07:21] LABS: ALBUMIN 0.9 g/dL (3.4-5.0); ANION GAP 16.1 MEQ/L (5-15); BILIRUBIN,TOTAL 0.7 mg/dL (0.2-1.0); Calcium 7.2 mg/dL (8.5-10.1); Creatinine 1 1.71 mg/dl (0.55-1.30); Total Protein 3.7 gm/dL (6.4-8.2)
[2017-10-21 07:35] LABS: Potassium 2.7 mEq/L (3.5-5.1)
[2017-10-21 07:36] LABS: Carbon Dioxide 10.1 mEq/L (21-32)
[2017-10-21 07:49] LABS: BAND 30 % (0.0-2.0); Lymphocytes 44 % (24-44); Metamyelocyte 8 %; Monocyte 16 % (0.0-12.0); Neutrophils 2 % (36.0-66.0); Nucleated Red Blood Cell 2 %; Polychromasia 1+; Total Cells Counted 100
[2017-10-21 07:50] LABS: ANISOCYTOSIS 1+; Rouleau 1+
[2017-10-21 07:52] LABS: Platelet Estimate DECREASED (NORMAL)
[2017-10-21] MEDS ORDERED: SODIUM BICARBONATE 50 MEQ/50 ML ABBOJECT IV ONE ×2 (08:00→08:15)
[2017-10-21 08:08] LABS: Appearance CLOUDY (CLEAR); Bilirubin NEGATIVE (NEGATIVE); Blood NEGATIVE Ery/ul (0-5); Glucose NEGATIVE (NEGATIVE); Ketones NEGATIVE (NEGATIVE); Leukocyte Esterase NEGATIVE (NEGATIVE); Nitrite POSITIVE (NEGATIVE); Protein,Urine Dip TRACE (Negative); Urobilinogen NORMAL mg/dL (0-1)
[2017-10-21] MEDS: POTASSIUM CHLORIDE 20 mEq IN WATER 100ML 20 MEQ/100 ML BAG IV SCH ×2 (09:35→11:40)
[2017-10-21] MEDS: Lopressor 25MG Tab PO SCH (11:58)
[2017-10-21] MEDS: SYNTHROID 75 MCG PO SCH (11:58)
[2017-10-21] MEDS: PROTONIX 40 MG IV IV SCH (12:00)
[2017-10-21 12:49] LABS: Bacteria MODERATE /HPF (NEGATIVE); Epithelial Cells FEW /HPF (FEW); Mucus SLIGHT /HPF (NEGATIVE); WBC 0-2 /HPF (0-5)
[2017-10-21 13:02] VITALS: O2SAT 84
[2017-10-21 14:37] VITALS: BP 43/36; PULSE 48
--- NOTE | 2017-10-22 11:54 | CONS ---
CONSULT DATE: 10/21/2017 REASON FOR CONSULTATION: Respiratory failure, ventilator management. HISTORY: Miss Mancera is a 72 year-old woman who has been sick for the past nine months. According to the patient's family her problems started with a cholecystectomy which was subsequently complicated by pneumonia requiring prolonged antibiotic therapy. Post-antibiotic therapy the patient developed Clostridium difficile colitis requiring colectomy and ileostomy placement. She was recuperating at a local [facility] where she was noted to have nausea, vomiting and was transferred to the hospital. On admission the patient was noted to have stable vital signs although her laboratory work up showed acute pancreatitis with elevated blood sugar levels. She developed altered mental status with suspected aspiration and was transferred to ICU last night. I received a call from respiratory therapy reporting the patient's blood gases and reporting that she was intubated. Subsequently we tried to manage her pressors with addition of Braxton-Synephrine as well as broadening of antibiotics. The patient's lactic acid level was elevated along with worsening of renal function. Although the initial set of blood gases showed improvement, ABG's this morning again have shown pH of 6.9. At the time of my evaluation this morning, the patient is still lightly sedated on Versed and Fentanyl but she remains on Levophed on 27 mcg and Braxton-Synephrine at over 100 mcg. She is poorly responsive to verbal and tactile stimuli. PAST MEDICAL HISTORY: Problems mentioned above. The patient has history of hypothyroidism, hypertension, gastroesophageal reflux. PAST SURGICAL HISTORY: As above. PERSONAL AND SOCIAL HISTORY: The patient has been a resident of a nursing facility recently. MEDICATIONS: Home and current medications are reviewed. ALLERGIES: DARVON. PHYSICAL EXAMINATION: This is an elderly woman who is intubated and sedated, poorly responsive to verbal and tactile stimuli. Vital signs are noted. ET and NG tubes are in place. CVS: First and second heart sounds are normal, regular, rhythmic. RESPIRATORY: Shows diminished breath sounds, scattered rhonchi are heard. ABDOMEN: Status post surgery. EXTREMITIES: Lower extremities show 2+ leg edema. KINSEY hose are in place. LABORATORY DATA AND TESTS: White blood cell count 4.1, hemoglobin 11.4, hematocrit 37, PLT 77,000. The pH 6.95, pCO2 33, pO2 109. Sodium 119, potassium 2.7, chloride 95, bicarb 10, glucose 526, BUN 23, creatinine 1.7. Albumin 0.9, AST 38, ALT 9, amylase 276, lipase 1,038. Lactic acid 3.9. Chest x-ray showed right lower lobe density concerning for pneumonia. ASSESSMENT: This is a 72 year old woman with multiple health problems in the past nine months who has been admitted with: 1) Acute respiratory failure. 2) Severe sepsis with septic shock requiring multiple pressors, still unable to correct acidemia. 3) Acute renal failure/multi-organ failure secondary to sepsis. 4) Right lower lobe aspiration. 5) Severe hyperalbuminemia. 6) General debilitation. 7) Electrolyte imbalance. 8) Diabetes mellitus type 2 with uncontrolled hyperglycemia secondary to pancreatitis. RECOMMENDATIONS: I had a long discussion with the patient's daughter and son at the bedside. The family prior to my arrival has signed a Do Not Resuscitate form. The family fully understands that this is terminal condition and her prognosis is grave even with aggressive therapy. The patient has clearly failed to show any clinical response to aggressive therapy. In view of this the family is considering comfort measures which are completely appropriate. I will be available in case of any additional help needed. I have advised nursing staff to stop any blood gases given the patient has required arterial sticks and would like to keep her as comfortable as possible. Unfortunately despite aggressive therapy, Miss Mancera did not show clinical improvement. Thank you for allowing me to participate in the care of Miss Mancera.
--- NOTE | 2017-10-23 14:55 | DS ---
DATE OF : 10/21/2017 CAUSE OF : SEPTIC SHOCK. FINAL DIAGNOSES: 1) PANCREATITIS. 2) HISTORY OF CLOSTRIDIUM DIFFICILE COLITIS AND TOTAL COLECTOMY. 3) RHEUMATOID ARTHRITIS. 4) IMMUNOSUPPRESSIVE TREATMENT. HOSPITAL COURSE: The patient was a 72 year-old white female who was admitted to the hospital on 10/19/2017 for pancreatitis. The patient was found to have lipase level in the 9,000 range. She was admitted to medicine [facility] and given IV fluids for fluid resuscitation. The next morning the patient was found to have decreased consciousness and had developed fever. Blood pressure had begun dropping. She was transferred to the ICU and given aggressive fluid resuscitation. Eventually IV pressor medications including Braxton-Synephrine and Levophed. The patient had a couple episodes of emesis despite having NG tube in place during which time it was felt that she likely aspirated. During the Code Rapid the patient was intubated and placed on ventilator management. Dr. Himanshu Flores was consulted and kindly came to visit with the patient. We had tried to get the patient to be transferred to another facility through his contacts with the Hospitalist at [facility] however they declined to take her in transfer as she was too unstable due to her hemodynamic instability. The patient succumbed to her illness on 10/21/2017. Cause of as noted as septic shock.
== END 2017-10-21 15:20 | disposition expired | DRG 438 ==
LOC: MED SURG 10:10 → ICU 10-20 15:16
PROVIDERS: ADMIT Family Medicine; ATTEND Family Medicine
PROC: 0BH17EZ Insertion of Endotracheal Airway into Trachea, Via Natural or Artificial Opening (ICD-10-PCS; 2017-10-19)
PROC: 5A1945Z Respiratory Ventilation, 24-96 Consecutive Hours (ICD-10-PCS; principal; 2017-10-20)
DX: K85.90 Acute pancreatitis without necrosis or infection, unspecified (principal); A41.9 Sepsis, unspecified organism; J96.00 Acute respiratory failure, unspecified whether with hypoxia or hypercapnia; R65.21 Severe sepsis with septic shock; J18.1 Lobar pneumonia, unspecified organism; N17.9 Acute kidney failure, unspecified; K92.2 Gastrointestinal hemorrhage, unspecified; Z90.49 Acquired absence of other specified parts of digestive tract; M06.9 Rheumatoid arthritis, unspecified; E88.09 Other disorders of plasma-protein metabolism, not elsewhere classified; E87.8 Other disorders of electrolyte and fluid balance, not elsewhere classified; E11.65 Type 2 diabetes mellitus with hyperglycemia; E03.9 Hypothyroidism, unspecified; I10 Essential (primary) hypertension; K21.9 Gastro-esophageal reflux disease without esophagitis; I48.0 Paroxysmal atrial fibrillation; E83.52 Hypercalcemia; Z93.2 Ileostomy status; Z79.899 Other long term (current) drug therapy
CPT/HCPCS: 36415; 36600; 71045; 74176; 80053; 81000; 82150; 82375; 82803; 83605; 83690; 83735; 85025; 87040; 87086; 93005; 94002; 94003; 94770; J1265; J2250; J2270; J2370; J2405; J2543; J3480; P9603; A9270-GY